=== PATIENT | female | born 1965 | race Caucasian/White ===

== ENCOUNTER → 2020-10-12 15:40 | Outpatient (CLI) | payer BC, SELFPAY ==
--- NOTE | ~2020-10-12 | MR_ITS ---
EXAMINATION: MR brain/brain stem wo/w con EXAM DATE: 10/12/2020 16:52 INDICATION: Headaches. Forgetting things. TECHNIQUE: Magnetic resonance imaging (MRI) of the brain/brain stem obtained without contrast. Sagit sharmin T1, axial diffusion, gradient echo (T2*), T1, T2, FLAIR sequences obtained. Patient was then inj ected with 18 cc intravenous Multihance contrast. Axial and coronal postcontrast T1 weighted sequence s obtained. There is no prior study for comparison. FINDINGS: There are no areas of restricted diffusion to suggest acute infarction. There is no acute hemorrhage seen on the T2*, a hemosiderin sensitive sequence. No intraparenchymal brain mass. The ve ntricles are normal in size. There are no extra-axial collections. Flow voids are seen in the cereb ral arteries on the T2-weighted sequences consistent with their expected patency. The orbits are unr emarkable. Soft tissue is unremarkable. There are no areas of abnormal enhancement on the postcont rast images. IMPRESSION: 1. Normal brain MRI examination. Reviewed, dictated and finalized at location B.
[2020-10-12 16:10] LABS: Estimated Glomerular Filt Rate 58
== END ==
PROVIDERS: Visit Provider Physician Assistant Medical
DX: R51.9 Headache, unspecified (principal)
CPT/HCPCS: 70553; A9577

== ENCOUNTER 2021-02-10 01:01 | Day surgery (SDC) | payer BC, SELFPAY ==
[2021-02-09 08:18] VITALS: BMI 32.4
[2021-02-10] VITALS (10 sets, daily range): BP systolic 113–137; BP diastolic 66–78; PULSE 60–84; RESP 10–20; TEMP 36.7–37.1; O2SAT 98–100
--- NOTE | ~2021-02-10 | XR_ITS ---
EXAMINATION: XR abdomen/kub 1V DATE: 02/10/2021 11:19 INDICATION: Kidney stone. TECHNIQUE: A supine view of the abdomen on 2 radiographs was obtained. COMPARISON: Abdomen radiograph 09/10/2014 FINDINGS: There are no dilated loops of bowel. There is a left internal ureteral stent in expected po sition. There is a 5 x 3 mm stone in left ureter at L2. Three 2-3 mm calcifications overlying left ki dney may be stones. IMPRESSION: 1. 5 x 3 mm stone in proximal left ureter with left internal ureteral stent in expected position. 2. Small calcifications overlying left kidney, which may be kidney stones. Reviewed, dictated and finalized at location A.
--- NOTE | 2021-02-10 06:53 | WPDHPUPDATE1 ---
History and Physical Update Update Date/Time: 02/10/21 06:53 History and Physical has been reviewed, including an updated exam of the patient. There are NO changes in the patient's condition. Risks, benefits, and alternatives have been discussed and questions answered. Patient agrees to proceed with procedure.
--- NOTE | 2021-02-10 10:02 | P.HP_ITS ---
History of Present Illness History of Present Illness Consent: Risks, benefits, and alternatives have been discussed and questions answered. Patient agrees to proceed with procedure. Chief complaint: left ureteral calcululs Narrative: Ayana Marinelli is a 55 year old female who's struggled x1 week with pain resulting from 7mm left proximal ureteral stone. Two days ago underwent left stent placement. She denies fever/chill, n/v. Review of Systems Cardiovascular: Cardiovascular: Denies chest pain, Denies lightheadedness, Denies palpitations and Denies dyspnea Respiratory: Respiratory: Denies dyspnea Gastrointestinal: Gastrointestinal: Denies diarrhea, Denies nausea and Denies vomiting Genitourinary: Genitourinary: Denies hematuria and Denies dysuria Endocrine: Endocrine: Denies palpitations PMF Family History Family History Other Family history of coronary artery disease Social History Social History Smoking status: Never smoker Alcohol intake: current Drinks per week: 2 Substance use: never Substance use type: does not use Living arrangements: with family Spiritual care concerns: No Meds Home Medications and Allergies Home Medications Medication Instructions Recorded Confirmed Type bupropion HCl [Wellbutrin SR] 150 mg PO BID 02/09/21 02/09/21 History hydrocodone-acetaminophen [[place]] 1 tablet PO Q6H PRN 02/09/21 02/09/21 History rizatriptan 10 mg PO ONCE PRN 02/09/21 02/09/21 History tamsulosin [Flomax] 0.4 mg PO DAILY 02/09/21 02/09/21 History zolpidem [Ambien] 5 mg PO HS PRN 02/09/21 02/09/21 History Allergies Allergy/AdvReac Type Severity Reaction Status Date / Time omeprazole Allergy Severe Chest Pain Verified 02/09/21 08:15 Penicillins Allergy Unknown Unknown Verified 02/09/21 08:15 Exam Const: General: no acute distress Resp: Effort & Inspection: normal respiratory effort GI: Inspection: non-distended GI Palp: No abdominal tenderness and No Guarding due to palpation present (GI) Auscultation: normal bowel sounds Assessment and Plan Assessment and plan (1) Left ureteral stone: Code(s): N20.1 - Calculus of ureter Status: Acute Assessment and Plan: * Left ESWL, possible cysto. left ureteral stent removal.
--- NOTE | 2021-02-10 10:02 | WPDHPUPDATE1 ---
History and Physical Update Update Date/Time: 02/10/21 10:02 History and Physical has been reviewed, including an updated exam of the patient. There are NO changes in the patient's condition. Risks, benefits, and alternatives have been discussed and questions answered. Patient agrees to proceed with procedure.
--- NOTE | 2021-02-10 11:37 | WPDANESEPPF ---
Anes - Initial Pre Proc Eval Procedure: Operation Date: 02/10/21 13:00 Proposed Procedures p Left Ureteral Extracorporeal Shock Wave Lithotripsy, - Philipp Valdez MD s Cystoscopy, Possible Left Stent Removal - Philipp Valdez MD Date/Time: 02/10/21 11:37 Surgeon: Philipp Valdez MD Pre Op Diagnosis: left ureteral calcululs Patient Data Age: 55 Gender: F Height: 1.69 m Weight: 92.53 kg Allergies Allergy/AdvReac Type Severity Reaction Status Date / Time omeprazole Allergy Severe Chest Pain Verified 02/10/21 11:24 Penicillins Allergy Unknown Unknown Verified 02/10/21 11:24 Home Medications Medication Instructions Recorded Confirmed Type bupropion HCl [Wellbutrin SR] 300 mg PO HS 02/09/21 02/10/21 History hydrocodone-acetaminophen [[place]ox] 1 tablet PO Q6H PRN 02/09/21 02/10/21 History rizatriptan 10 mg PO ONCE PRN 02/09/21 02/10/21 History tamsulosin [Flomax] 0.4 mg PO DAILY 02/09/21 02/10/21 History zolpidem [Ambien] 5 mg PO HS PRN 02/09/21 02/10/21 History famotidine 20 mg PO BID 02/10/21 02/10/21 History Patient hx anesthesia problems: none Family hx anesthesia problems: none Results Review: All pre-operative results and documents have been reviewed as part of the pre-operative evaluation. [facility] Past Medical History Medical History Anxiety Hx of migraines Raynaud's disease Family History Family History Other Family history of coronary artery disease Social History Social History Smoking status: Never smoker Alcohol intake: current Drinks per week: 2 Substance use: never Substance use type: does not use Living arrangements: with family Spiritual care concerns: No Anes - Eval Final PreProcedure Day of Procedure 02/10/21 11:37 Patient weight: obese Heart: regular rate and rhythm Lungs: clear to auscultation Airway: Mallampati scale class II Neurological: alert and oriented Last oral intake: >/= 8 hours ASA classification: III Emergent: no Anesthetic plan: proceed Anesthesia type and monitoring: general LMA and standard monitoring Results Review: All pre-operative results and documents have been reviewed as part of the pre-operative evaluation. Informed Consent: The patient's anesthetic plan and its attendant risks and benefits were discussed with the patient/family/POA. Questions were solicited and answers provided to the satisfaction of the patient/family/POA.
[2021-02-10] MEDS: LACTATED RINGERS 1,000 ML 30 ML IV CONT ×2 (12:06→14:56)
[2021-02-10] MEDS: SCOPOLAMINE 1.5 MG PATCH TRANSDERM (12:34)
--- NOTE | 2021-02-10 13:38 | P.OP_ITS ---
Procedure Note - Detailed Date of Procedure 02/10/21 Pre-op Diagnosis Left ureteral calcululs Post-op Diagnosis same Procedure Performed Cysto, left ureteral stent removal, left ESWL Surgeon Philipp Valdez MD Anesthesia general Description of Procedure The patient was brought to the operative suite where she was placed in the frog- legged position on the Dornier lithotripter table. Flexible cystoscopy was undertaken with a 16F flexible cystoscopy. Her urethra and bladder neck were endoscopically normal. The bladder mucosa was normal and there was a single, orthotopic ureteral orifice bilaterally. The indwelling stent is grasped and extracted with ease The patient was then repositioned in the supine position and the focal point of the lithotriptor was placed at a 5mm left mid-ureteral calculus. A total of 3000 shocks were delivered at a power setting of 5. There appeared to be good fragmentation of the stone. The patient tolerated the procedure well and was taken to the recovery room in good condition. Drains No Packing No Pathology none sent Complications No immediate complications Condition stable Disposition PACU
[2021-02-10] MEDS: ONDANSETRON INJ 4 MG/2 ML VIAL IV PUSH (14:02)
[2021-02-10] MEDS: fentaNYL CITRATE INJ (*CRX) 100 MCG/2 ML VIAL 25 MCG IV PUSH ×4 (14:06→14:32)
[2021-02-10] MEDS: oxyCODONE HCL (*CRX) 5 MG TAB IR PO (14:55)
== END 2021-02-10 16:40 | disposition home or self-care (01) ==
PROVIDERS: PCP Physician Assistant Medical; Visit Provider Urology
PROC: (CPT 50590; principal; 2021-02-10 13:00)
PROC: (CPT 52352; 2021-02-10 13:00)
DX: N20.1 Calculus of ureter (principal); F41.9 Anxiety disorder, unspecified; I73.00 Raynaud's syndrome without gangrene; E66.9 Obesity, unspecified; Z68.32 Body mass index [BMI] 32.0-32.9, adult
CPT/HCPCS: 50590; 52310; 74018; A9270; J1100; J1885; J2250; J2405; J2704; J3010; J7030; J7120

== ENCOUNTER 2021-11-21 08:43 | Outpatient (CLI) | payer BC, SELFPAY ==
[2021-11-21 09:59] LABS: INR 0.9; Prothrombin Time 12.2 Seconds (11.1-14.7)
[2021-11-21 10:00] LABS: Partial Thromboplastin Time 28.6 SECONDS (22.3-36.8)
== END 2021-11-21 08:44 | disposition home or self-care (01) ==
LOC: ANHSURGERY 08:47
PROVIDERS: PCP Physician Assistant Medical; Visit Provider Urology
DX: N20.1 Calculus of ureter (principal); Z01.818 Encounter for other preprocedural examination
CPT/HCPCS: 36415; 85610; 85730; 87086

== ENCOUNTER 2021-11-24 02:37 | Day surgery (SDC) | payer BC, SELFPAY ==
[2021-11-14 15:22] VITALS: BMI 28.6
--- NOTE | 2021-11-14 15:28 | PC.NURSE ---
Report to the Outpatient Waiting Room, entrance under the green pavilion located off [facility], at time 7:30 on date 11/24/21. OR Time: 9:30. - You and your visitor will be asked a series of questions to screen for COVID 19 for your protection. - Only one visitor is allowed at this time. - The patient visitor is requested to leave or wait in car when not with patient. - A mask is required within the hospital. Patients may have clear liquids (water, carbonated beverages, clear teas, apple juice) until 3 hours prior to surgery (6:30) with a maximum of 20 ounces. - No food from midnight until time of surgery Take the following medications with a SIP of water the morning of surgery: NONE Medications to discontinue per physician: N/A Date to take last dose: N/A Please no make-up, nail ugandan, hairspray, perfume, deodorant, or body powder the day of surgery. No jewelry (including any body piercings) or valuables the day of surgery, leave them at home. Please take a shower or bath the night before, or the morning of, surgery with an antibacterial soap. Wear comfortable, loose fitting clothing. - Jewelry must be removed prior to entering the operating room. Rings and piercings that are not removed may be cut off. - The hospital will not accept responsibility for valuables. - Please leave all valuables, including medications, at home the day of surgery. If you are going home after surgery, a licensed over the road driver must drive you home. - NO public transportation without another adult. - We recommend that an adult stay with you for 24 hours following discharge. - We also recommend that you do not drive, make important decision, drink alcoholic beverages, or take any drugs that were not prescribed by your health care provider for at least 24 hours after your discharge time. Follow any additional instructions given to you from your surgeon. If you or anyone in your household have experienced Covid symptoms in the past week, please notify your surgeon or the nurse liaison at the phone number below for possible testing. Telephone instructions given to PT - RACHEL MILLIGAN and asked if any additional questions and then verbalized understanding. Patient advised to call surgeon office or pre surgery nurse liaison [phone] if any additional questions.
--- NOTE | 2021-11-22 11:27 | PM.HPGS ---
History of Present Illness History of Present Illness Consent: Risks, benefits, and alternatives have been discussed and questions answered. Patient agrees to proceed with procedure. Chief complaint: Lt Kidney Stone Narrative: Ayana Marinelli is a 56 year old female who is known to have recurrent kidney stones in the past and required ESWL on prior occasions. On recent 6 month follow-up KUB imaging demonstrated for residual stones in her left kidney measuring between 4 mm and 6 mm. After discussion of therapeutic options she has elected to proceed with left ESWL. She is aware the risk of this procedure including, but not limited to, adverse cardiopulmonary events, persistent stone fragments that require additional procedures, hematuria and perinephric hematoma. Review of Systems Cardiovascular: Cardiovascular: Denies chest pain, Denies lightheadedness, Denies palpitations and Denies dyspnea Respiratory: Respiratory: Denies dyspnea Gastrointestinal: Gastrointestinal: Denies diarrhea, Denies nausea and Denies vomiting Genitourinary: Genitourinary: Denies hematuria and Denies dysuria Endocrine: Endocrine: Denies palpitations [facility] Past Medical History Medical History Anxiety Hx of migraines Raynaud's disease Family History Family History Other Family history of coronary artery disease Social History Social History Smoking status: Never smoker Alcohol intake: current Drinks per week: 1 Substance use: never Substance use type: does not use Spiritual care concerns: No Meds Home Medications and Allergies Home Medications Medication Instructions Recorded Confirmed Type bupropion HCl 150 mg tablet,12 hr 300 mg PO HS 02/09/21 11/14/21 History sustained-release (Wellbutrin SR) rizatriptan 10 mg tablet 10 mg PO ONCE PRN Migraine Headache 02/09/21 11/14/21 History zolpidem 5 mg tablet (Ambien) 5 mg PO HS PRN Insomnia 02/09/21 11/14/21 History famotidine 20 mg tablet 20 mg PO BID 02/10/21 11/14/21 History Allergies Allergy/AdvReac Type Severity Reaction Status Date / Time omeprazole Allergy Severe Chest Pain Verified 11/14/21 15:19 Penicillins Allergy Unknown Unknown Verified 11/14/21 15:19 Exam Const: General: no acute distress Resp: Effort & Inspection: normal respiratory effort GI: Inspection: non-distended GI Palp: No abdominal tenderness and No Guarding due to palpation present (GI) Auscultation: normal bowel sounds Assessment and Plan Assessment and plan (1) Left renal stone: Code(s): N20.0 - Calculus of kidney Status: Acute Assessment and Plan: Left ESWL
[2021-11-24] VITALS (7 sets, daily range): BP systolic 112–122; BP diastolic 66–93; PULSE 64–87; RESP 9–18; TEMP 36.1–36.7; O2SAT 96–100
--- NOTE | ~2021-11-24 | XR_ITS ---
EXAMINATION: XR abdomen/kub 1V INDICATION: Urolithiasis TECHNIQUE: Supine views of the abdomen were obtained on 2 radiographs. COMPARISON: 02/10/2021 FINDINGS: A 6 mm stone projects in the expected location of the proximal left ureter between the left L1 and L2 transverse processes. There is a 3 mm stone in the upper pole of left kidney. A 2 mm stone is present in the left kidney lower pole. The bowel gas pattern is normal. IMPRESSION: 1. 6 mm stone projecting in the expected location of the proximal left ureter. Reviewed, dictated and finalized at location L.
--- NOTE | 2021-11-24 06:53 | WPDHPUPDATE1 ---
History and Physical Update Update Date/Time: 11/24/21 06:53 History and Physical has been reviewed, including an updated exam of the patient. There are NO changes in the patient's condition. Risks, benefits, and alternatives have been discussed and questions answered. Patient agrees to proceed with procedure.
[2021-11-24] MEDS: LACTATED RINGERS 1,000 ML 30 ML IV CONT (08:00)
--- NOTE | 2021-11-24 08:09 | WPDANESEPPF ---
Anes - Initial Pre Proc Eval Procedure: Operation Date: 11/24/21 09:30 Proposed Procedures p Left Extracorporeal Shock Wave Lithotripsy - Philipp Valdez MD Date/Time: 11/24/21 08:09 Surgeon: Philipp Valdez MD Pre Op Diagnosis: Lt Kidney Stone Patient Data Age: 56 Gender: F Height: 1.7 m Weight: 83 kg Allergies Allergy/AdvReac Type Severity Reaction Status Date / Time omeprazole Allergy Severe Chest Pain Verified 11/14/21 15:19 Penicillins Allergy Unknown Unknown Verified 11/14/21 15:19 Home Medications Medication Instructions Recorded Confirmed Type bupropion HCl 150 mg tablet,12 hr 300 mg PO HS 02/09/21 11/14/21 History sustained-release (Wellbutrin SR) rizatriptan 10 mg tablet 10 mg PO ONCE PRN Migraine Headache 02/09/21 11/14/21 History zolpidem 5 mg tablet (Ambien) 5 mg PO HS PRN Insomnia 02/09/21 11/14/21 History famotidine 20 mg tablet 20 mg PO BID 02/10/21 11/14/21 History Patient hx anesthesia problems: none Family hx anesthesia problems: none Results Review: All pre-operative results and documents have been reviewed as part of the pre-operative evaluation. [facility] Past Medical History Medical History Anxiety Hx of migraines Raynaud's disease Surgical History Surgical History (Updated 11/24/21 @ 08:09 by Adan Patel MD) H/O lithotripsy Hx of cystoscopy Family History Family History Other Family history of coronary artery disease Social History Social History Smoking status: Never smoker Alcohol intake: current Drinks per week: 1 Substance use: never Substance use type: does not use Living arrangements: alone Spiritual care concerns: No Anes - Eval Final PreProcedure Day of Procedure 11/24/21 08:09 Patient weight: overweight Heart: regular rate and rhythm Lungs: clear to auscultation Airway: Mallampati scale class II Neurological: alert and oriented Last oral intake: >/= 8 hours ASA classification: II Emergent: no Anesthetic plan: proceed Anesthesia type and monitoring: general LMA and standard monitoring Results Review: All pre-operative results and documents have been reviewed as part of the pre-operative evaluation. Informed Consent: The patient's anesthetic plan and its attendant risks and benefits were discussed with the patient/family/POA. Questions were solicited and answers provided to the satisfaction of the patient/family/POA.
[2021-11-24] MEDS: KETOROLAC 30 MG/ML VIAL (*BKC) IV PUSH (09:09)
--- NOTE | 2021-11-24 09:29 | W.PM.PROC2 ---
Procedure Note - Detailed Date of Procedure 11/24/21 Pre-op Diagnosis Lt Kidney Stone Post-op Diagnosis Same Procedure Performed Left ESWL Surgeon Philipp Valdez MD Description of Procedure The patient was brought to the operative suite where she was placed in the supine position on the Dornier lithotripsy table. On the morning of this procedure KUB indicated that she had passed a small stone in the left upper pole and that the 6 mm stone that had been in her left lower pole was either in the renal pelvis or proximal ureter. The focal point of the lithotripter was placed at a this 6 mm left renal calculus. A total of 1500 shocks were delivered at a power setting of 4 - stone appeared to break up very early in the course of the procedure. There appeared to be excellent fragmentation of the stone. The patient tolerated the procedure well and was taken to the recovery room in good condition. Drains No Packing No Pathology None sent Complications No immediate complications Condition Stable Disposition PACU
[2021-11-24] MEDS: fentaNYL CITRATE INJ (*CRX) 100 MCG/2 ML VIAL 25 MCG IV PUSH ×3 (09:40→09:50)
[2021-11-24] MEDS: oxyCODONE HCL (*CRX) 5 MG TAB IR PO (10:30)
[2021-11-24] MEDS: ONDANSETRON INJ 4 MG/2 ML VIAL IV PUSH (10:47)
--- NOTE | 2021-11-24 11:10 | SUR.PHASEII ---
RN called back to the OR and Dr. Valdez will send a prescription to the pharmacy for antiemetic when finished with his next case.
== END 2021-11-24 11:12 | disposition home or self-care (01) ==
PROVIDERS: PCP Physician Assistant Medical; Visit Provider Urology
PROC: (CPT 50590; principal; 2021-11-24 09:30)
DX: N20.0 Calculus of kidney (principal); F41.9 Anxiety disorder, unspecified; I73.00 Raynaud's syndrome without gangrene
CPT/HCPCS: 50590; 74018; A9270; J0690; J1100; J1885; J2250; J2405; J2704; J3010; J7120

== ENCOUNTER → 2022-02-20 14:51 | Outpatient (CLI) | payer BC, SELFPAY ==
--- NOTE | ~2022-02-20 | CT_ITS ---
EXAMINATION: CT chest high resolution wo de DATE: 02/20/2022 15:11 INDICATION: Follow-up pulmonary nodule TECHNIQUE: Computed tomography (CT) of the chest was performed without intravenous contrast. The dose -length product was 333.57 mGy-cm. Automated exposure control and iterative reconstruction technique were employed. COMPARISON: CT dated 09/06/2017 FINDINGS: There are 2 contiguous nodules in the left lower lobe, largest measuring 8 mm with developi ng central calcification, consistent with chronic granulomatous disease. There is a calcified left hi lar lymph node, consistent with granulomatous disease. No thoracic lymphadenopathy. Heart size normal . No significant pleural or pericardial effusion. There are nonobstructing bilateral renal stones. Th ere are gallstones. There is a small calcified granuloma in the left lower lobe, image 41. No endobro nchial lesions. No pneumothorax. No focal consolidation. IMPRESSION: 1. Slight enlargement of benign-appearing calcified left lower lobe nodule measuring 8 mm, consistent with chronic granulomatous disease. 2: Nonobstructing bilateral nephrolithiasis. 3: Cholelithiasis. Reviewed, dictated and finalized at location B. IMPRESSION: 1. Slight enlargement of benign-appearing calcified left lower lobe nodule lisset uring 8 mm, consistent with chronic granulomatous disease. 2: Nonobstructing bilateral nephrolithiasis. 3: Cholelithiasis.
--- NOTE | ~2022-02-20 | MM_ITS ---
EXAMINATION: MM screening jose alfredo BI w bill HISTORY: Screening mammogram, family history of breast cancer in her sister. TECHNIQUE: Craniocaudal and mediolateral oblique 3-D tomosynthesis images were obtained and synthetic 2-D images were generated. CAD analysis was submitted and interpreted. COMPARISON: 05/02/2019, 09/13/2017, 09/06/2017 BREAST PARENCHYMAL COMPOSITION: There are scattered areas of fibroglandular density. FINDINGS: Scattered benign-appearing calcifications are present. No suspicious mass, calcification, o r architectural distortion are identified in either breast to suggest malignancy. There has been no s uspicious interval change. IMPRESSION: 1. No mammographic evidence of malignancy. 2. Recommend routine screening mammography in one year. BI-RADS Category 2: Benign finding(s). Reviewed, dictated and finalized at location A.
== END ==
PROVIDERS: PCP Physician Assistant Medical; Visit Provider Physician Assistant Medical
DX: Z12.31 Encounter for screening mammogram for malignant neoplasm of breast (principal); R91.1 Solitary pulmonary nodule; K80.20 Calculus of gallbladder without cholecystitis without obstruction; N20.0 Calculus of kidney
CPT/HCPCS: 71250; 77063; 77067

== ENCOUNTER → 2022-06-22 12:47 | Outpatient (CLI) | payer BC, SELFPAY ==
--- NOTE | ~2022-06-22 | CT_ITS ---
EXAMINATION: CT sinus wo con DATE: 06/22/2022 13:00 INDICATION: Sinusitis. Migraines. TECHNIQUE: Computed tomography (CT) of the paranasal sinuses was performed without intravenous contra st. The dose-length product was 287.09 mGy-cm. Automated exposure control and iterative reconstructio n technique were employed. COMPARISON: None FINDINGS: There is no significant mucosal thickening, air-fluid levels or mucoperiosteal reaction. Os tiomeatal units are patent. Rightward nasal septal deviation. Mastoids are pneumatized. IMPRESSION: 1. No significant sinus disease. Reviewed, dictated and finalized at location B. GER QUALITY
== END ==
PROVIDERS: PCP Physician Assistant Medical; Visit Provider Physician Assistant Medical
DX: J32.9 Chronic sinusitis, unspecified (principal); G43.909 Migraine, unspecified, not intractable, without status migrainosus
CPT/HCPCS: 70486

== ENCOUNTER 2022-07-14 10:34 | Outpatient (CLI) | payer BC, SELFPAY ==
[2022-07-14 11:21] LABS: INR 0.9; Prothrombin Time 11.9 Seconds (11.1-14.7)
[2022-07-14 11:23] LABS: Partial Thromboplastin Time 26.4 SECONDS (22.3-36.8)
== END 2022-07-14 10:35 | disposition home or self-care (01) ==
LOC: ANHLAB 10:36
PROVIDERS: PCP Physician Assistant Medical; Visit Provider Urology
DX: N20.0 Calculus of kidney (principal); Z01.818 Encounter for other preprocedural examination
CPT/HCPCS: 36415; 85610; 85730; 87086

== ENCOUNTER 2022-07-20 02:29 | Day surgery (SDC) | payer BC, SELFPAY ==
[2022-07-13 12:47] VITALS: BMI 29.9
--- NOTE | 2022-07-13 12:51 | PC.NURSE ---
Addendum entered by Kristal Ward RN 07/13/22 12:58: PT TO TAKE AM DOSE OF CEFDINIR MORNING OF SURGERY Original Note: Report to the Outpatient Waiting Room, entrance under the green pavilion located off [facility], at time 10:30 on date 07/20/22. Planned Procedure Time: 12:30. Time changes happen often and if your time is changed the preop area will call you the afternoon before. - You and your visitor will be asked to self-screen and do not enter if you have any COVID symptoms. - Only one visitor is requested with a max of two and NO children visitors are allowed at this time. - The patient visitor may be requested to leave or wait in car when not with patient due to distancing restrictions. - A mask is optional within the hospital at this time. Patients may have clear liquids (water, carbonated beverages, clear teas, apple juice) until 3 hours prior to surgery (9:30) with a maximum of 20 ounces. - No food from midnight until time of surgery Take the following medications with a SIP of water the morning of surgery: N/A DO NOT STOP ANY OF YOUR OTHER PRESCRIPTION MEDICATIONS PRIOR TO SURGERY EXCEPT THE FOLLOWING Medications to discontinue per physician: VITAMINS/SUPPLEMENTS Date to take last dose: 07/16/22 Please no make-up, nail [place], hairspray, perfume, deodorant, or body powder the day of surgery. No jewelry (including any body piercings) or valuables the day of surgery, leave them at home. Please take a shower or bath the night before, or the morning of, surgery with an antibacterial soap. Wear comfortable, loose fitting clothing. - Jewelry must be removed prior to entering the operating room. Rings and piercings that are not removed may be cut off. - The hospital will not accept responsibility for valuables. - Please leave all valuables, including medications, at home the day of surgery. If you are going home after surgery, a licensed school boat driver must drive you home. - NO public transportation without another adult if you receive anesthesia. - We recommend that an adult stay with you for 24 hours following discharge. - We also recommend that you do not drive, make important decision, drink alcoholic beverages, or take any drugs that were not prescribed by your health care provider for at least 24 hours after your discharge time. Follow any additional instructions given to you from your surgeon. If you or anyone in your household have experienced Covid symptoms in the past week, please notify your surgeon or the nurse liaison at the phone number below for possible testing. Telephone instructions given to INDIGO MILLIGAN and asked if any additional questions and then verbalized understanding. Patient advised to call surgeon office or pre surgery nurse liaison [phone] if any additional questions.
--- NOTE | 2022-07-19 07:02 | PM.HPGS ---
History of Present Illness History of Present Illness Consent: Risks, benefits, and alternatives have been discussed and questions answered. Patient agrees to proceed with procedure. Chief complaint: Lt Kidney Stone Narrative: Ayana Marinelli is a 56 year old female Well known to our service with a long history of recurrent urolithiasis. She recently presented for routine follow-up where imaging demonstrated 4 stones in left kidney up to 5 mm. After consideration she has elected for left ESWL. She is aware the risk including, but not limited to, adverse cardiopulmonary events, hematuria and perinephric hematoma. Review of Systems Cardiovascular: Cardiovascular: Denies chest pain, Denies lightheadedness, Denies palpitations and Denies dyspnea Respiratory: Respiratory: Denies dyspnea Gastrointestinal: Gastrointestinal: Denies diarrhea, Denies nausea and Denies vomiting Genitourinary: Genitourinary: Denies hematuria and Denies dysuria Endocrine: Endocrine: Denies palpitations PMFSH Past Medical History Medical History ) Acute non-recurrent maxillary sinusitis Anxiety Anxiety GERD (gastroesophageal reflux disease) Hx of migraines Insomnia Primary insomnia Pulmonary nodule Raynaud's disease Surgical History Surgical History ) H/O lithotripsy 2014,2020,2021 History of tonsillectomy 03/2007 Hx of appendectomy 1979 Hx of cystoscopy Hx of tubal ligation 09/2001 Family History Family History ) Other Family history of coronary artery disease Social History Social History ) Smoking status: Never smoker Alcohol intake: current Drinks per week: 2 Substance use: never Substance use type: does not use Lack of Transportation: No Lack of Food: Never True Current Housing: I Have Housing Concerned About Future Housing: No Difficulty Paying Gas/Electric Bills: No Difficulty Paying for Meds: No Currently Unemployed: No Education: High School Diploma/GED Difficulty w/ Childcare or Family Care: No Living arrangements: with family Additional living arrangements comments: DAUGHTER Occupation/Education: occupation Gender identity (if verbalized by the patient): Female Sexual Orientation (if Verbalized by the Patient): Straight or Heterosexual Spiritual care concerns: No Meds Home Medications and Allergies Home Medications Medication Instructions Recorded Confirmed Type ergocalciferol (vitamin D2) 1,250 1,250 mcg PO WEEKLY #12 caps 12/11/21 07/13/22 Rx mcg (50,000 unit) capsule bupropion HCl 150 mg tablet,12 hr See Rx Instructions .Route 05/21/22 07/13/22 Rx sustained-release .COMPLEX #180 tabs cefdinir 300 mg capsule 300 mg PO Q12H #20 caps 07/11/22 07/13/22 Rx famotidine 20 mg tablet 20 mg PO BID #180 tabs 07/11/22 07/13/22 Rx sucralfate 1 gram tablet 1 g PO QID #120 tabs 07/11/22 07/13/22 Rx topiramate 25 mg tablet (Topamax) 25 mg PO DAILY 07/13/22 07/13/22 History zolpidem 5 mg tablet (Ambien) 5 mg PO HS PRN Insomnia #3 tabs 07/16/22 Rx Allergies Allergy/AdvReac Type Severity Reaction Status Date / Time omeprazole Allergy Severe Chest Pain Verified 07/17/22 09:32 Penicillins Allergy Unknown Unknown Verified 07/17/22 09:32 Exam Const: General: no acute distress Resp: Effort & Inspection: normal respiratory effort GI: Inspection: non-distended GI Palp: No abdominal tenderness and No Guarding due to palpation present (GI) Auscultation: normal bowel sounds Assessment and Plan Assessment and plan (1) Left renal stone: Code(s): N20.0 - Calculus of kidney Status: Acute Assessment and Plan: Left ESWL
[2022-07-20] VITALS (12 sets, daily range): BP systolic 100–129; BP diastolic 67–87; PULSE 65–83; RESP 11–16; TEMP 36.3–36.7; O2SAT 94–100
--- NOTE | ~2022-07-20 | XR_ITS ---
EXAMINATION: XR abdomen/kub 1V INDICATION: Nephrolithiasis TECHNIQUE: Supine views of the abdomen were obtained on 2 radiographs. COMPARISON: 12/11/2021 FINDINGS: A 3 mm stone projects in the upper pole of the left kidney. There is a 3 mm stone of the le ft mid kidney. A 2 mm stone is noted in the left kidney lower pole. No stones are identified in the r ight kidney, ureters, or the bladder. The bowel gas pattern is normal. IMPRESSION: 1. Left nephrolithiasis. Reviewed, dictated and finalized at location B. IMPRESSION: 1. Left nephrolithiasis.
--- NOTE | 2022-07-20 06:33 | WPDHPUPDATE1 ---
History and Physical Update Update Date/Time: 07/20/22 06:33 History and Physical has been reviewed, including an updated exam of the patient. There are NO changes in the patient's condition. Risks, benefits, and alternatives have been discussed and questions answered. Patient agrees to proceed with procedure.
[2022-07-20] MEDS: LACTATED RINGERS 1,000 ML 30 ML IV CONT ×2 (10:45→12:36)
[2022-07-20] MEDS: SCOPOLAMINE 1.5 MG PATCH TRANSDERM ×2 (11:10→15:04)
[2022-07-20] MEDS: fentaNYL CITRATE INJ (*CRX) 100 MCG/2 ML VIAL 50 MCG IV PUSH (11:10)
--- NOTE | 2022-07-20 11:25 | WPDANESEPPF ---
Anes - Initial Pre Proc Eval Procedure: Operation Date: 07/20/22 11:30 Proposed Procedures p Left Extracorporeal Shock Wave Lithotripsy - Philipp Valdez MD Date/Time: 07/20/22 11:25 Surgeon: Philipp Valdez MD Pre Op Diagnosis: Lt Kidney Stone Patient Data Age: 56 Gender: F Height: 1.7 m Weight: 86.65 kg Allergies Allergy/AdvReac Type Severity Reaction Status Date / Time omeprazole Allergy Severe Chest Pain Verified 07/17/22 09:32 Penicillins Allergy Unknown Unknown Verified 07/17/22 09:32 Home Medications Medication Instructions Recorded Confirmed Type ergocalciferol (vitamin D2) 1,250 1,250 mcg PO WEEKLY #12 caps 12/11/21 07/13/22 Rx mcg (50,000 unit) capsule bupropion HCl 150 mg tablet,12 hr See Rx Instructions .Route 05/21/22 07/13/22 Rx sustained-release .COMPLEX #180 tabs cefdinir 300 mg capsule 300 mg PO Q12H #20 caps 07/11/22 07/13/22 Rx famotidine 20 mg tablet 20 mg PO BID #180 tabs 07/11/22 07/13/22 Rx sucralfate 1 gram tablet 1 g PO QID #120 tabs 07/11/22 07/13/22 Rx topiramate 25 mg tablet (Topamax) 25 mg PO DAILY 07/13/22 07/13/22 History zolpidem 5 mg tablet (Ambien) 5 mg PO HS PRN Insomnia #3 tabs 07/16/22 Rx Patient hx anesthesia problems: other (headache) Family hx anesthesia problems: none Results Review: All pre-operative results and documents have been reviewed as part of the pre-operative evaluation. [facility] Past Medical History Medical History Acute non-recurrent maxillary sinusitis Anxiety Anxiety GERD (gastroesophageal reflux disease) Hx of migraines Insomnia Primary insomnia Pulmonary nodule Raynaud's disease Surgical History Surgical History H/O lithotripsy 2014,2020,2021 History of tonsillectomy 03/2007 Hx of appendectomy 1979 Hx of cystoscopy Hx of tubal ligation 09/2001 Family History Family History Other Family history of coronary artery disease Social History Social History Smoking status: Never smoker Alcohol intake: current Drinks per week: 2 Substance use: never Substance use type: does not use Lack of Transportation: No Lack of Food: Never True Current Housing: I Have Housing Concerned About Future Housing: No Difficulty Paying Gas/Electric Bills: No Difficulty Paying for Meds: No Currently Unemployed: No Education: High School Diploma/GED Difficulty w/ Childcare or Family Care: No Living arrangements: with family Additional living arrangements comments: DAUGHTER Occupation/Education: occupation Gender identity (if verbalized by the patient): Female Sexual Orientation (if Verbalized by the Patient): Straight or Heterosexual Spiritual care concerns: No Anes - Eval Final PreProcedure Day of Procedure 07/20/22 11:25 Patient weight: overweight Heart: regular rate and rhythm Lungs: clear to auscultation Airway: Mallampati scale class II Neurological: alert and oriented Last oral intake: >/= 8 hours ASA classification: III Emergent: no Anesthetic plan: proceed Anesthesia type and monitoring: general LMA and standard monitoring Results Review: All pre-operative results and documents have been reviewed as part of the pre-operative evaluation. Informed Consent: The patient's anesthetic plan and its attendant risks and benefits were discussed with the patient/family/POA. Questions were solicited and answers provided to the satisfaction of the patient/family/POA.
[2022-07-20] MEDS: ceFAZolin 2 GM/D5W 50 ML 2 GM/50 ML BAG IVPB (11:53)
--- NOTE | 2022-07-20 12:08 | W.PM.PROC2 ---
Procedure Note - Detailed Date of Procedure 07/20/22 Pre-op Diagnosis Lt Kidney Stone Post-op Diagnosis Same Procedure Performed Left ESWL Surgeon Philipp Valdez MD Anesthesia General Description of Procedure The patient was brought to the operative suite where she was placed in the supine position on the Dornier lithotripsy table. Patient has two decent-sized stones (each 5-6mm) in her left kidney and some smaller, clinically insignifiant chips. At a power setting of 4 we delivered 1250 shocks to each of the larger stones in left kidney for a total of 2500 shocks . There appeared to be good fragmentation of the stone. The patient tolerated the procedure well and was taken to the recovery room in good condition. Drains No Packing No Pathology None sent Complications No immediate complications Condition Stable Disposition PACU
[2022-07-20] MEDS: fentaNYL CITRATE INJ (*CRX) 100 MCG/2 ML VIAL 25 MCG IV PUSH ×5 (12:44→13:45)
[2022-07-20] MEDS: ONDANSETRON INJ 4 MG/2 ML VIAL IV PUSH (12:58)
[2022-07-20] MEDS: oxyCODONE HCL (*CRX) 5 MG TAB IR PO (14:09)
[2022-07-20] MEDS: KETOROLAC 15 MG/ML VIAL (*BKC) IV PUSH (14:30)
== END 2022-07-20 15:15 | disposition home or self-care (01) ==
PROVIDERS: PCP Physician Assistant Medical; Visit Provider Urology
PROC: (CPT 50590; principal; 2022-07-20 11:30)
DX: N20.0 Calculus of kidney (principal); K21.9 Gastro-esophageal reflux disease without esophagitis; F41.9 Anxiety disorder, unspecified; G47.00 Insomnia, unspecified
CPT/HCPCS: 50590; 74018; A9270; J0690; J1100; J1885; J2250; J2405; J2704; J3010; J7120

== ENCOUNTER 2022-11-02 15:04 | Outpatient (CLI) | payer BC, SELFPAY ==
--- NOTE | ~2022-11-02 | US_ITS ---
EXAMINATION: US thyroid DATE: 11/02/2022 15:41 INDICATION: Nontoxic goiter, unspecified. TECHNIQUE: Multiple ultrasound images of the thyroid were obtained. COMPARISON: None. FINDINGS: The right thyroid lobe measures 3.8 x 1.4 x 2.0 cm. The left thyroid lobe measures 3.6 x 1.5 x 1.6 c m. In the left thyroid lobe, there is a 7 mm solid, hypoechoic, wider than tall nodule with smooth m argin without echogenic foci (TI-RADS TR4). In the left thyroid lobe, there is a 6 mm solid, very hyp oechoic, wider than tall nodule with smooth margin without echogenic foci (TR4). In the right thyroid lobe, there is a 7 mm solid, hypoechoic, wider than tall nodule with ill-defined margin without echo genic foci (TR4). In the right thyroid lobe, there is a 5 mm solid, hypoechoic, wider than tall nodul e with smooth margin without echogenic foci (TR4). IMPRESSION: 1. Small thyroid nodules, likely not clinically significant. No follow-up is needed. Reviewed, dictated and finalized at location A. IMPRESSION: 1. Small thyroid nodules, likely not clinically significant. No follow-up is ne eded.
== END 2022-11-02 15:05 | disposition home or self-care (01) ==
PROVIDERS: PCP Physician Assistant Medical; Visit Provider Nurse Practitioner Family
DX: E04.2 Nontoxic multinodular goiter (principal)
CPT/HCPCS: 76536

== ENCOUNTER → 2023-02-21 09:13 | Outpatient (CLI) | payer BC, SELFPAY ==
--- NOTE | ~2023-02-21 | CT_ITS ---
EXAMINATION: CT brain wo con DATE: 02/21/2023 09:27 INDICATION: Headache. TECHNIQUE: Computed tomography (CT) of the head was performed without intravenous contrast. The mA wa s adjusted according to patient size. Iterative reconstruction technique was employed. The dose-lengt h product was 599.57 mGy-cm. COMPARISON: None FINDINGS: There is no intracranial hemorrhage, acute infarction, or abnormal intracranial mass lesion . The ventricles are normal in size. There is mild mucosal thickening in the paranasal sinuses. The o rbits are normal. The mastoid air cells are normal. IMPRESSION: 1. Normal brain. Reviewed, dictated and finalized at location E. IMPRESSION: 1. Normal brain.
== END ==
PROVIDERS: PCP Nurse Practitioner Family; Visit Provider Nurse Practitioner Family
DX: R51.9 Headache, unspecified (principal)
CPT/HCPCS: 70450

== ENCOUNTER 2023-08-30 13:03 | Outpatient (CLI) | payer BC, SELFPAY ==
--- NOTE | ~2023-08-30 | MM_ITS ---
EXAMINATION: MM screening jose alfredo BI w bill HISTORY: Screening mammogram TECHNIQUE: Craniocaudal and mediolateral oblique 3-D tomosynthesis images were obtained and synthetic 2-D images were generated. CAD analysis was submitted and interpreted. COMPARISON: 02/20/2022, 05/02/2021 bilateral screening mammogram examinations BREAST PARENCHYMAL COMPOSITION: There are scattered areas of fibroglandular density.. FINDINGS: Scattered bilateral benign calcifications are again noted. Stable mild fibroglandular asymm etry. There is no evidence of suspicious mass, calcification, or architectural distortion to suggest malignancy in either breast. There has been no suspicious interval change. IMPRESSION: 1. No mammographic evidence of malignancy. 2. Recommend routine screening mammography in one year. BI-RADS Category 2: Benign finding(s). Reviewed, dictated and finalized at location A.
== END 2023-08-30 13:04 ==
LOC: MICIMG 13:03
PROVIDERS: PCP Nurse Practitioner Family; Visit Provider Nurse Practitioner Family
DX: Z12.31 Encounter for screening mammogram for malignant neoplasm of breast (principal)
CPT/HCPCS: 77063; 77067

== ENCOUNTER 2024-04-03 08:07 | Outpatient (CLI) | payer BC, SELFPAY ==
--- NOTE | ~2024-04-03 | XR_ITS ---
XR abdomen/kub 1V Ordering provider: Philipp Valdez MD History: . Calculus of kidney . Comparison: None. FINDINGS: BOWEL: Fecal material seen in the right and left side of the colon. Nonobstructive bowel gas pattern. ORGANOMEGALY: None. SIGNIFICANT PATHOLOGIC CALCIFICATIONS: Stones seen in both kidneys. OTHER: No free air is seen under the diaphragm. IMPRESSION: NO ACUTE ABDOMINAL FINDINGS. Bilateral kidney stones. Constipation. Reviewed, dictated and finalized at location A. [employer]
== END 2024-04-03 08:08 | disposition home or self-care (01) ==
PROVIDERS: PCP Nurse Practitioner Family; Visit Provider Urology
DX: N20.0 Calculus of kidney (principal); K59.00 Constipation, unspecified
CPT/HCPCS: 74018

== ENCOUNTER 2024-04-13 11:16 | Outpatient (CLI) | payer BC, SELFPAY ==
[2024-04-13 12:03] LABS: INR 0.9; Prothrombin Time 12.7 Seconds (11.1-14.7)
[2024-04-13 12:04] LABS: Partial Thromboplastin Time 25.7 Seconds (22.3-36.8)
== END 2024-04-13 11:17 | disposition home or self-care (01) ==
PROVIDERS: PCP Nurse Practitioner Family; Visit Provider Urology
DX: Z01.812 Encounter for preprocedural laboratory examination (principal)
CPT/HCPCS: 36415; 85610; 85730

== ENCOUNTER 2024-04-14 01:27 | Day surgery (SDC) | payer BC, SELFPAY ==
[2024-04-08 12:10] VITALS: BMI 27.6
--- NOTE | 2024-04-08 12:15 | PC.NURSE ---
Addendum entered by Ric Beaver RN 04/10/24 12:57: Surgery date changed to 04-14-2024, arrive at 1130 for surgery at 1330. Original Note: Report to the Outpatient Waiting Room, entrance under the green pavilion located off [facility], at time _0600_ on date _[id number]_. Planned Procedure Time: _0730_.? Time changes happen often and if your time is changed the preop area will call you the afternoon before. - You and your visitor will be asked to self-screen and do not enter if you have any COVID symptoms. Please call surgeon if you need to reschedule. - A mask is optional within the hospital at this time. Patients may have clear liquids (water, carbonated beverages, clear teas, apple juice) until 3 hours prior to surgery with a maximum of 20 ounces. - No food from midnight until time of surgery and no smoking. This includes no chewing gum, candy or mints. Take only the following medications with a SIP of water on the morning of surgery: ____None DO NOT STOP ANY OF YOUR OTHER PRESCRIPTION MEDICATIONS PRIOR TO SURGERY EXCEPT THE FOLLOWING Medications to discontinue per physician ____None Date to take last dose Please no make-up, nail [place] islander, hairspray, perfume, deodorant, or body powder the day of surgery.? No jewelry (including any body piercings) or valuables the day of surgery, leave them at home.? Please take a shower or bath the night before, or the morning of, surgery with an antibacterial soap.? Wear comfortable, loose fitting clothing. - Jewelry must be removed prior to entering the operating room.? Rings and piercings that are not removed may be cut off. - The hospital will not accept responsibility for valuables.? - Please leave all valuables, including medications, at home the day of surgery. If you are going home after surgery, a licensed motorcycle delivery driver must drive you home.? - NO public transportation without another adult if you receive anesthesia. - We recommend that an adult stay with you for 24 hours following discharge. - We also recommend that you do not drive, make important decision, drink alcoholic beverages, or take any drugs that were not prescribed by your health care provider for at least 24 hours after your discharge time. Follow any additional instructions given to you from your surgeon. Telephone instructions given to _Ayana__and asked if any additional questions and then verbalized understanding. Patient advised to call surgeon office or pre surgery nurse liaison [phone] if any additional questions.
[2024-04-14] VITALS (10 sets, daily range): BP systolic 96–134; BP diastolic 57–81; PULSE 56–68; RESP 10–14; TEMP 36.3; O2SAT 96–100
--- NOTE | ~2024-04-14 | XR_ITS ---
XR abdomen/kub 1V Ordering provider: Joaquín Taylor MD History: . PRE ESWL FOR LEFT STONE . Comparison: None. FINDINGS: BOWEL: Nonobstructive bowel gas pattern. ORGANOMEGALY: None. SIGNIFICANT PATHOLOGIC CALCIFICATIONS: Bilateral kidney stones. OTHER: No free air is seen under the diaphragm. IMPRESSION: NO ACUTE ABDOMINAL FINDINGS. Bilateral kidney stones. Reviewed, dictated and finalized at location A. 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
[2024-04-14] MEDS: LACTATED RINGERS 1,000 ML 30 ML IV CONT (12:00)
--- NOTE | 2024-04-14 12:01 | WPDHPUPDATE1 ---
History and Physical Update Update Date/Time: 04/14/24 12:01 History and Physical has been reviewed, including an updated exam of the patient. There are NO changes in the patient's condition. Risks, benefits, and alternatives have been discussed and questions answered. Patient agrees to proceed with procedure.
--- NOTE | 2024-04-14 14:25 | WPDANESEPPF ---
Anes - Initial Pre Proc Eval Procedure: Operation Date: 04/14/24 13:30 Proposed Procedures p Left Extracorporeal Shock Wave Lithotripsy - Joaquín Taylor MD Date/Time: 04/14/24 14:25 Surgeon: Joaquín Taylor MD Pre Op Diagnosis: left renal stone Patient Data Age: 58 Gender: F Height: 1.69 m Weight: 79 kg Last Vital Signs Temp 36.3 C L 04/14/24 13:00 Pulse 66 04/14/24 13:00 Resp 14 04/14/24 13:00 BP 129/68 04/14/24 13:00 Pulse Ox 100 04/14/24 13:00 O2 Del Method Room Air 04/14/24 13:00 Allergies Allergy/AdvReac Type Severity Reaction Status Date / Time omeprazole Allergy Severe Chest Pain Verified 04/14/24 14:01 Penicillins Allergy Unknown Unknown Verified 04/14/24 14:01 Home Medications ?Medication ?Instructions ?Recorded ?Confirmed ?Type ubrogepant 100 mg tablet (Ubrelvy) 100 mg PO ONCE 12/07/22 04/08/24 History albuterol sulfate 90 mcg/actuation 2 inh inhalation Q4H PRN shortness 07/26/23 04/08/24 Rx aerosol inhaler of breath or wheezing #8.5 grams cetirizine 10 mg capsule (Zyrtec) 10 mg PO DAILY PRN allergy symptoms 08/02/23 04/08/24 History montelukast 10 mg tablet 10 mg PO DAILY #90 tabs 08/13/23 04/08/24 Rx famotidine 20 mg tablet See Rx Instructions .Route 11/18/23 04/08/24 Rx .COMPLEX #180 tabs zolpidem 5 mg tablet (Ambien) 5 mg PO HS PRN Insomnia #90 tabs 01/28/24 04/08/24 Rx doxycycline hyclate 100 mg capsule 100 mg PO BID #20 caps 04/06/24 04/08/24 Rx prednisone 20 mg tablet 20 mg PO .COMPLEX #15 tabs 04/06/24 04/08/24 Rx galcanezumab-gnlm 120 mg/mL 120 mg subcut MONTHLY 04/08/24 04/08/24 History subcutaneous pen injector (Emgality Pen) Patient hx anesthesia problems: post op nausea/vomiting Family hx anesthesia problems: none Results Review: All pre-operative results and documents have been reviewed as part of the pre-operative evaluation. [facility] Past Medical History Medical History Kidney stones Anxiety Pulmonary nodule Primary insomnia GERD (gastroesophageal reflux disease) Insomnia Raynaud's disease Hx of migraines Anxiety Surgical History Surgical History H/O esophagogastroduodenoscopy Hx of appendectomy 1980 History of tonsillectomy 03/2007 Hx of tubal ligation 09/2001 H/O lithotripsy 2014,2020,2021 Hx of cystoscopy Family History Family History Other Family history of coronary artery disease Social History Social History Social History: 04/03/24 Patient declined SDOH Smoking status: Never smoker Alcohol intake: current Drinks per week: 2 Substance use: never Substance use type: does not use Do You Feel Safe in your Home?: Yes Lack of Transportation: No Lack of Food: Never True Current Housing: I Have Housing Concerned About Future Housing: No Difficulty Paying Gas/Electric Bills: No Difficulty Paying for Meds: No Currently Unemployed: No Education: Trade/Vocational Certificate Difficulty w/ Childcare or Family Care: No Living arrangements: with family Additional living arrangements comments: DAUGHTER Occupation/Education: occupation Gender identity (if verbalized by the patient): Female Sexual Orientation (if Verbalized by the Patient): Straight or Heterosexual Spiritual care concerns: No Anes - Eval Final PreProcedure Day of Procedure 04/14/24 14:25 Patient weight: overweight Heart: regular rate and rhythm Lungs: clear to auscultation Airway: Mallampati scale class II Neurological: alert and oriented Last oral intake: >/= 8 hours ASA classification: III Emergent: no Anesthetic plan: proceed Anesthesia type and monitoring: general LMA and standard monitoring Results Review: All pre-operative results and documents have been reviewed as part of the pre-operative evaluation. Informed Consent: The patient's anesthetic plan and its attendant risks and benefits were discussed with the patient/family/POA. Questions were solicited and answers provided to the satisfaction of the patient/family/POA.
--- NOTE | 2024-04-14 15:11 | W.PM.PROC2 ---
Procedure Note - Detailed Date of Procedure 04/14/24 Pre-op Diagnosis left renal stone Post-op Diagnosis Same Procedure Performed Left renal lithotripsy -2000 shocks to lower pole stones, 500 to upper pole Surgeon Joaquín Taylor MD Anesthesia General Description of Procedure Patient was taken to the operative suite correctly identified. Once anesthesia was obtained the lower pole stones were located. These were identified in both planes. Two thousand shocks were given to the stones and appeared to be fragmentation. The patient was then repositioned where the more upper pole stone was visualized. Five hundred shocks were given to this stone. Patient tolerated procedure well without any complications and was taken recovery stable condition. She will follow-up in approximately 10 days with KUB. This completes dictation. Please send a copy of op note to my office Estimated Blood Loss 0 Drains No Packing No Pathology None sent Complications No immediate complications Condition Stable Disposition PACU
[2024-04-14] MEDS: SCOPOLAMINE 1 MG PATCH 1 PATCH TRANSDERM (15:17)
[2024-04-14] MEDS: fentaNYL CITRATE INJ (*CRX) 100 MCG/2 ML VIAL 25 MCG IV PUSH ×4 (15:45→16:05)
[2024-04-14] MEDS: oxyCODONE HCL (*CRX) 5 MG TAB IR PO (16:39)
[2024-04-14] MEDS: ONDANSETRON INJ 4 MG/2 ML VIAL IV PUSH (16:55)
[2024-04-14] MEDS: oxyBUTYnin CHLORIDE 5 MG TABLET PO (17:21)
[2024-04-14] MEDS: diphenhydrAMINE HCl INJ 50 MG/ML VIAL 25 MG IV PUSH (17:28)
== END 2024-04-14 17:52 | disposition home or self-care (01) ==
PROVIDERS: PCP Nurse Practitioner Family; Visit Provider Urology
PROC: (CPT 50590; principal; 2024-04-14 13:30)
DX: N20.0 Calculus of kidney (principal); F41.9 Anxiety disorder, unspecified; F51.01 Primary insomnia; K21.9 Gastro-esophageal reflux disease without esophagitis; I73.00 Raynaud's syndrome without gangrene; M35.9 Systemic involvement of connective tissue, unspecified; M19.90 Unspecified osteoarthritis, unspecified site; Z79.51 Long term (current) use of inhaled steroids; Z79.52 Long term (current) use of systemic steroids; Z79.85 Long-term (current) use of injectable non-insulin antidiabetic drugs; Z98.890 Other specified postprocedural states; Z98.51 Tubal ligation status; Z80.3 Family history of malignant neoplasm of breast; Z80.49 Family history of malignant neoplasm of other genital organs; Z82.49 Family history of ischemic heart disease and other diseases of the circulatory system
CPT/HCPCS: 50590; 74018; A9270; J0690; J1100; J1200; J2250; J2270; J2405; J2704; J3010; J7120

== ENCOUNTER 2024-06-23 08:35 | Outpatient (CLI) | payer BC, SELFPAY ==
--- NOTE | ~2024-06-23 | XR_ITS ---
EXAMINATION: XR abdomen/kub 1V DATE: 06/23/2024 08:49 INDICATION: Calculus of kidney. TECHNIQUE: A supine view of the abdomen was obtained. COMPARISON: Abdomen radiographs 04/14/2024, chest CT 02/20/2022 FINDINGS: There are no dilated loops of bowel. The upper poles of the kidneys are excluded. There are approximately 3 stones in right kidney measuring up to 4 mm. There is a 2 mm stone in left kidney. T here are phleboliths in the pelvis. IMPRESSION: 1. Bilateral kidney stones. Reviewed, dictated and finalized at location A. LINE TRIMMER IMPRESSION: 1. Bilateral kidney stones.
== END 2024-06-23 08:36 | disposition home or self-care (01) ==
PROVIDERS: PCP Nurse Practitioner Family; Visit Provider Urology
DX: N20.0 Calculus of kidney (principal)
CPT/HCPCS: 74018

== ENCOUNTER 2024-07-10 14:08 | Outpatient (CLI) | payer BC, SELFPAY ==
--- NOTE | ~2024-07-10 | CT_ITS ---
EXAMINATION: CT abdomen pelvis wo con DATE: 07/10/2024 14:51 INDICATION: Calculus of kidney. TECHNIQUE: Computed tomography (CT) of the abdomen and pelvis was performed without intravenous contr ast. Automated exposure control and iterative reconstruction technique were employed. The dose-length product was 227.69 mGy-cm. COMPARISON: CT abdomen and pelvis 05/18/2005 FINDINGS: A calcified left lung nodule is consistent with old granulomas disease. No pleural effusion . The heart size is normal. No pericardial effusion. There is a small sliding hiatal hernia. The live r is normal. There are gallstones in the gallbladder, which is normal in size. The spleen, pancreas, and adrenal glands are normal. There are 5 stones in right kidney measuring up to 3 mm. There is mild right hydronephrosis. There is a 3 mm stone in proximal right ureter. There are 9 stones in left kid romi measuring up to 5 mm. There is diverticulosis of the colon without evidence of diverticulitis. Th ere are no dilated loops of bowel. The appendix is not visualized. There are no pathologically enlarg ed lymph nodes. There is no free intraperitoneal fluid. There is mild thoracic and lumbar spondylosis . IMPRESSION: 1. 3 mm stone in proximal right ureter with mild right hydronephrosis. 2. Bilateral nonobstructing kidney stones. Reviewed, dictated and finalized at location L.
--- OUTSIDE RECORDS SUMMARY | 2024-07-10 14:11 | XMS_ITS | Continuity of Care Document ---
[facility] Organization [facility] Address [address] [place] [address] Phone Care Team Providers Care Helicopter Pilot Instructor Name Role Phone Emilie Castillo Unavailable Unavailable [...] Diagnoses Date Provider Providers Copied on Encounter [employer], [address], [place], [place], [id number] , tel: [phone] [facility] No Information 0 9 Laura Phan. [address] [facility], [address], [place], [place], [address], . tel: [phone] [facility], [address], [place], [place], [address] , tel: [phone] Conversion Department No Information 0 1 Conversion Doctor. [facility] [place], [address], [place]. [facility], [address], [place], [place], [id number] , tel: [phone] [facility] JOINT PAIN-ANKLE 0 Conversion Doctor. [facility] [place], [address], [place]. [facility], [address], [place], [place], [address] , tel: [phone] [facility] COUGH 0 Conversion Doctor. [address] [place] [address], [address], [place]. [facility], [address], [place], [place], [address] , tel: [phone] [facility] INSOMNIA NOS Jun-0 9 Conversion Doctor. [address] [place] [address], [address], [place]. [facility], [address], [place], [place], [id number] , tel: [phone] [facility] CHEST PAIN NOSLONG-TERM USE MEDS NECSCREEN LIPOID DISORDERSMALAISE AND FATIGUE NEC Nov- 0-200 8 Tony Baeza. [address] [facility], [address], [place], [place], [address], [place]. tel: [phone] [facility], [address], [place], [place], [address] , tel: [phone] [facility] OTALGIA NOSALOPECIA NOSANXIETY STATE NOSURIN TRACT INFECTION NOS Feb- 0200 8 Laura Phan. [address] [facility], [address], [place], [place], [address], [place]. tel: [phone] [facility], [address], [place], [place], [address] , tel: [phone] [facility] ACUTE URI NOS 7 Conversion Doctor. [facility] [place], [address], . [facility], [address], [place], [place], [address] , tel: [phone] [facility] ACUTE SINUSITIS NOS 7 Laura Phan. [address] , [address], [place], [place], [address], [place]. tel:[phone] [facility], [address], [place], [place], [address] , tel: [phone] [facility] ALLERGIC RHINITIS NOS 7 Conversion Doctor. [facility], [place], [address], . Family History Family Member Type Diagnosis [...]
--- OUTSIDE RECORDS SUMMARY | 2024-07-10 14:11 | XMS_ITS | Patient Health Summary ---
Author Organization [facility] AdKeeper Address [address] [place] [address] Care Team Providers Care Flash Developer Name Role Phone Aisha Heller Primary Care Provider [phone] Note from [facility],non-owned Affiliates and Associated Physician Practices is amultiple site organization consisting of ambulatory clinics and hospital sitesin [place], [place], [place] and [place]. This disclosure is being madepursuant to the Care Everywhere program and may not contain all information available regarding this patient. Last updated 18.[facility] Allergies * Omeprazole(GI Discomfort) * Penicillins(Swelling) Medications * Be aware that medications may not be up to date on this document. Alwaysverify current medications with the patient. * zolpidem (Ambien) 5 MG tablet(Started 03/06/2023) * Ubrelvy 100 MG tablet(Started 02/12/2023) * famotidine (Pepcid) 20 MG tablet(Started 02/19/2023) Take 1 (one) tablet by mouth 2 times daily * cyanocobalamin (Vitamin B-12) 100 MCG tablet Take 1 (one) tablet by mouth once daily * cetirizine (ZyrTEC) 10 MG chew tablet Take 1 (one) tablet by mouth once daily * magnesium gluconate 500 (27 Mg) MG tablet Take 1 (one) tablet by mouth once daily * vitamin D, ergocalciferol, (Drisdol) 1.25 MG (46913 UT) capsule(Started 03/08/2023) Take 1 (one) capsule by mouth every 7 days Social History Tobacco Use Types Packs/Day Years Used Date Smoking Tobacco: Never Smokeless Tobacco: Never Tobacco Cessation:Counseling Given: Not Answered Alcohol Use Standard Drinks/Week Comments Yes 0 (1 standard drink = 0.6 oz pur e alcohol) social PHQ-2 Answer Date Recorded Patient Health Questionnaire-2 Score 0 03/07/2023 Sex and Gender Information Value Date Recorded Sex Assigned at Not on file Gender Identity Not on file Sexual Orientation Not on file Last Filed Vital Signs Vital Sign Reading Time Taken Comments Blood Pressure 134/84 04/15/2023 2:24 PM [facility] Pulse 70 04/15/2023 2:24 PM [facility] Temperature 36.4 C (97.5 F) 04/15/2023 2:24 PM [facility] Respiratory Rate - - Oxygen Saturation 70% 04/15/2023 2:24 PM [facility] Inhaled Oxygen Concentration - - Weight 87.5 kg (193 lb) 04/15/2023 2:24 PM [facility] Height 167.6 cm (5' 5.98 ) 04/15/2023 2:[address] Body Mass Index 31.17 04/15/2023 2:24 PM [facility] Procedures * BETA-2 GLYCOPROTEIN 1 ANTIBODY IGA(Performed 04/15/2023) Performed for Raynaud's disease without gangrene * BETA-2 GLYCOPROTEIN 1 ANTIBODY IGG/IGM PANEL(Performed 04/15/2023) Performed for Raynaud's disease without gangrene * CARDIOLIPIN ANTIBODY IGG(Performed 04/15/2023) Performed for Raynaud's disease without gangrene * CARDIOLIPIN ANTIBODY IGM(Performed 04/15/2023) Performed for Raynaud's disease without gangrene * LUPUS ANTICOAGULANT PANEL(Performed 04/15/2023) Performed for Raynaud's disease without gangrene * IRMA HEP-2 IGG BY IFA(Performed 03/07/2023) Performed for Raynaud's disease without gangrene * RICARDO/FILTERER (CARMEL) ANTIBODY IGG(Performed 03/07/2023) Performed for Raynaud's disease without gangrene * MARIVEL-1 ANTIBODY(Performed 03/07/2023) Performed for Raynaud's disease without gangrene, Screening-pulmonary TB, Need for hepatitis B screening test, Need for hepatitis C screening test * TSH REFLEX FREE T4(Performed 03/07/2023) Performed for Raynaud's disease without gangrene * ALDOLASE(Performed 03/07/2023) Performed for Raynaud's disease without gangrene * CK BLOOD(Performed 03/07/2023) Performed for Raynaud's disease without gangrene * RNA POLYMERASE III ANTIBODY IGG(Performed 03/07/2023) Performed for Raynaud's disease without gangrene * RICARDO (SM) ANTIBODY CARMEL(Performed 03/07/2023) Performed for Raynaud's disease without gangrene * SCLERODERMA 70 (SCL) ANTIBODY(Performed 03/07/2023) Performed for Raynaud's disease without gangrene * DNA ANTIBODY DOUBLE STRANDED(Performed 03/07/2023) Performed for Raynaud's disease without gangrene * CHROMATIN ANTIBODY(Performed 03/07/2023) Performed for Raynaud's disease without gangrene * CENTROMERE ANTIBODY(Performed 03/07/2023) Performed for Raynaud's disease without gangrene * IRMA BLOOD SCREEN W/REFLEX TITER(Performed 03/07/2023) Performed for Raynaud's disease without gangrene * SS-B (SJOGREN'S) ANTIBODY(Performed 03/07/2023) Performed for Raynaud's disease without gangrene * CYCLIC CITRULLINATED PEPTIDE(CCP) AB IGG(Performed 03/07/2023) Performed for Raynaud's disease without gangrene * RHEUMATOID FACTOR BLOOD QUANTITATIVE(Performed 03/07/2023) Performed for Raynaud's disease without gangrene * QUANTIFERON-TB GOLD PLUS 4-TUBE(Performed 03/07/2023) Performed for Raynaud's disease without gangrene, Screening-pulmonary TB * HEPATITIS C ANTIBODY(Performed 03/07/2023) Performed for Raynaud's disease without gangrene, Need for hepatitis C screening test * HEPATITIS B CORE ANTIBODY TOTAL(Performed 03/07/2023) Performed for Raynaud's disease without gangrene, Need for hepatitis B screening test * HEPATITIS B SURFACE ANTIGEN W RFLX CONFIRMATION(Performed 03/07/2023) Performed for Raynaud's disease without gangrene, Need for hepatitis B screening test * ERYTHROCYTE SEDIMENTATION RATE(Performed 03/07/2023) Performed for Raynaud's disease without gangrene * C-REACTIVE PROTEIN(Performed 03/07/2023) Performed for Raynaud's disease without gangrene * COMPREHENSIVE METABOLIC PANEL(Performed 03/07/2023) Performed for Raynaud's disease without gangrene * CBC W AUTO DIFFERENTIAL(Performed 03/07/2023) Performed for Raynaud's disease without gangrene * CRYOGLOBULIN QUALITATIVE(Performed 03/07/2023) Performed for Raynaud's disease without gangrene * TSH HI LOW REFLEX FREE T4(Performed 12/27/2011) * CULTURE FUNGUS OTHER+FUNGUS SMEAR(Performed 08/16/2011) * FUNGUS GOGO - POINT OF CARE (AMB) [facility](Performed 04/29/1998) * WET PREP - POINT OF CARE (AMB) [facility](Performed 04/29/1998) * PH FLUID - POCT (AMB) [facility](Performed 04/29/1998) Results * (ABNORMAL) LUPUS ANTICOAGULANT PANEL (04/15/2023 3:34 PM [facility]) APTT 26.3 23.0 - 38.4 Seconds 04/16/2023 12:49 PM [facility] PT 11.5(L) 12.1 - 14.8 Seconds 04/16/2023 12:49 PM [facility] INR 0.9 See Comment 04/16/2023 12:49 PM [facility] Buffer 39.7 Seconds 023 12:49 PM [facility] Phospholipid 37.3 Seconds 04/16/2023 12:49 PM [facility] Delta 2.4 <8.0 Seconds 04/16/2023 12:49 PM [facility] Interpretation [facility] Negative 04/16/2023 12:49 PM [facility] Comment:Up to 15-20% of tejas ents with lupus anticoagulant associated with antiphospholipid antibody syndrome (APAS) will have negative [facility]LOT-LA results. For these patients we recommend additional testing to include the Dilute Scot Viper Venom Time (DRVVT) test. Immunoassay measurements of anti-cardiolipin and anti-beta-2 glycoprotein 1 are recommended if the DRVVT, and STACLOT-LA tests are negative and there is clinical suspicion of APAS. Blood BLOOD SPECIMEN / Unknown Lab Venipuncture / Unknown 04/15/2023 3:34 PM [facility] 04/15/2023 4:31 PM [facility] Tony Johnston MD LAB - HEMATOLOGY ORD ERABLES [facility] [address] [place] [address], [facility] [phone] * CARDIOLIPIN ANTIBODY IGM (04/15/2023 3:34 PM BELLY DANCER) Pathologist [facility] Cardiolipin Antibody IgM <10 <=12 MPL 04/18/2023 10:58 AM BELLY DANCER [employer] ([facility]) Comment: INTERPRETIVE INFORMATION: Anti-Cardiolipin IgM <=12 MPL: Negative 13-19 MPL: Indeterminate 20-80 MPL: Low to Moderately Positive 81 MPL or above: High Positive The persistent presence of IgG and/or IgM cardiolipin (CL) antibodies in moderate or high levels (greater than 40 GPL and/or greater than 40 MPL units) is a laboratory criterion for the diagnosis of antiphospholipid syndrome (APS). Persistence is defined as moderate or high levels of IgG and/or IgM CL antibodies detected in two or more specimens drawn at least 12 weeks apart (J Throm Haemost. 2006;4:295-306). Lower positive levels of IgG and/or IgM CL antibodies (above cutoff but less than 40 GPL and/or less than 40 MPL units) may occur in patients with the clinical symptoms of APS; therefore, the actual significance of these levels is undefined. Results should not be used alone for diagnosis and must be interpreted in light of APS-specific clinical manifestations and/or other criteria phospholipid antibody tests. Performed By: [employer] [address] [place] [address] [address] House: Audi Sandoval MD, PhD CLIA Number: [id number] Blood BLOOD SPECIMEN / Unknown Lab Venipuncture / Unknown 04/15/2023 3:34 PM [facility]ER 04/15/2023 4:32 PM [employer] Tony Johnston MD LAB - SEROLOGY ORDER MALATHI Performing Organization Address City/[facility]/ZIP Co de Phone Number [employer] [facility]) [address] * CARDIOLIPIN ANTIBODY IGG (04/15/2023 3:34 PM BELLY D[employer]ER) Cardiolipin Antibody IgG <10 <=14 GPL 04/18/2023 10:58 AM BELLY DANCER [employer] ([facility]) Comment: INTERPRETIVE INFORMATION: Anti-Cardiolipin IgG Ab <=14 GPL: Negative 15-19 GPL: Indeterminate 20-80 GPL: Low to Moderately Positive 81 GPL or above: High Positive The persistent presence of IgG and/or IgM cardiolipin (CL) antibodies in moderate or high levels (greater than 40 GPL and/or greater than 40 MPL units) is a laboratory criterion for the diagnosis of antiphospholipid syndrome (APS). Persistence is defined as moderate or high levels of IgG and/or IgM CL antibodies detected in two or more specimens drawn at least 12 weeks apart (J Throm Haemost. 2006;4:295-306). Lower positive levels of IgG and/or IgM CL antibodies (above cutoff but less than 40 GPL and/or less than 40 MPL units) may occur in patients with the clinical symptoms of APS; therefore, the actual significance of these levels is undefined. Results should not be used alone for diagnosis and must be interpreted in light of APS-specific clinical manifestations and/or other criteria phospholipid antibody tests. Performed By: [employer] [address] [place] [address] Superintendent House: Audi Sandoval MD, PhD CLIA Number: [id number] Blood BLOOD SPECIMEN / Unknown Lab Venipuncture / Unknown 04/15/2023 3:34 PM [facility]ER 04/15/2023 4:32 PM [employer] Tony Johnston MD LAB - SEROLOGY ORDER MALATHI Performing Organization Address [facility]/ZIP Co de Phone Number [employer] ([facility]) [address] * BETA-2 GLYCOPROTEIN 1 ANTIBODY IGA (04/15/2023 3:34 PM [facility]LLY [employer]ER) Beta-2 Glycoprotein Antibody IgA <10 <=20 PEREZ 04/17/2023 11:45 PM [facility]LLY D[facility]ER [facility] ([facility]) Comment: Performed By: [facility] [address] [place] [address] Superintendent House: Audi Sandoval MD, PhD CLIA Number: [id number] Blood BLOOD SPECIMEN / Unknown Lab Venipuncture / Unknown 04/15/2023 3:34 PM [facility] D[facility]ER 04/15/2023 4:32 PM [employer] Tony Johnston MD LAB - SEROLOGY ORDER MALATHI [facility]) [address] [place] [address], [facility] * BETA-2 GLYCOPROTEIN 1 ANTIBODY IGG/IGM PANEL (04/15/2023 3:34 PM [facility] [employer]) Beta-2 Glycoprotein Antibody IgG <10 <=20 SGU 04/17/2023 11:45 PM [facility]LLY D[facility]ER [facility] ([facility]) Beta-2 Glycoprotein Antibody IgM <10 <=20 SMU 04/17/2023 11:45 PM [facility] ([facility]) Comment: INTERPRETIVE INFORMATION: [id number] I, IgG and IgM Antibody The persistent presence of IgG and/or IgM beta 2 glycoprotein I (B2GPI) antibodies is a laboratory criterion for the diagnosis of antiphospholipid syndrome (APS). Persistence is defined as moderate or high levels of IgG and/or IgM B2GPI antibodies detected in two or more specimens drawn at least 12 weeks apart (J Throm Haemost. 2006;4:295-306). B2GPI results greater than 20 SGU (IgG) and/or SMU (IgM) are considered positive based on the cutoff values established for this test. International reference materials and consensus units for anti-B2GPI antibodies have not been established (Clin Chen Acta. 2012;413(1-2):358-60; Arthritis Rheum. 2012;64(1):1-10.); results can be variable between different commercial immunoassays and cannot be compared. Strong clinical correlation is recommended for a diagnosis of APS. Low positive IgG and IgM B2GPI antibody levels should be interpreted in light of APS-specific clinical manifestations and/or other criteria phospholipid antibody tests. Performed By: [employer] [address] [place] [address] Superintendent House: Audi Sandoval MD, PhD CLIA Number: [id number] Blood BLOOD SPECIMEN / Unknown Lab Venipuncture / Unknown 04/15/2023 3:34 PM [facility] 04/15/2023 4:32 PM [employer] Tony Johnston MD LAB - CHEMISTRY CHIDI WATERS [facility]) [address] [place] [address], [facility] * IRMA HEP-2 IGG BY IFA (03/07/2023 12:15 PM BELLY [employer]ER) IRMA HEp-2 IgG <1:80 <1:80 03/10/2023 5:02 AM BELLY DANCER [employer] ([facility]) IRMA Interpretive Comment See Note 03/10/2023 5:02 AM BELLY DANCER [employer] ([facility]) Comment: Antinuclear antibodies by IFA negative for homogeneous, speckled, nucleolar, centromere, and nuclear dots patterns. Cytoplasmic antibodies by IFA negative for reticular/AMA, discrete/GW body-like, polar/golgi-like, rods and rings, and cytoplasmic speckled patterns. INTERPRETIVE INFORMATION: IRMA Interpretive Comment Presence of antinuclear antibodies (IRMA) is a hallmark feature of systemic autoimmune rheumatic diseases (SARD). However, IRMA lacks diagnostic specificity and is associated with a variety of diseases (cancers, autoimmune, infectious, and inflammatory conditions) and may also occur in healthy individuals in varying prevalence. The lack of diagnostic specificity requires confirmation of positive IRMA by more specific serologic tests. IRMA (nuclear reactivity) positive patterns reported include centromere, homogeneous, nuclear dots, nucleolar, or speckled. IRMA (cytoplasmic reactivity) positive patterns reported include reticular/AMA, discrete/GW body-like, polar/golgi-like, cytoplasmic speckled or rods and rings. All positive patterns are reported to endpoint titers (1:2560). Reported patterns may help guide differential diagnosis, although they may not be specific for individual antibodies or diseases. Mitotic staining patterns not reported. Negative results do not necessarily rule out SARD. Performed By: [employer] [address] [place] [address] Superintendent House: Audi Sandoval MD, PhD CLIA Number: [id number] Blood BLOOD SPECIMEN / Unknown Lab Venipuncture / Unknown 03/07/2023 12:15 PM BE[facility]ER 03/07/2023 12:38 PM [employer] Tony Johnston MD LAB - SEROLOGY ORDER MALATHI Performing Organization Address [facility] de Phone Number [facility] [employer] [facility]) [address] [place] [address] * RICARDO/FILTERER (CARMEL) ANTIBODY IGG (03/07/2023 12:15 PM BELLY D[employer]ER) Ricardo/FILTERER (CARMEL) Antibody IgG 8 0 - 19 Units 03/10/2023 5:39 AM BELLY D[facility]ER [facility] [employer] ([facility]) Comment: INTERPRETIVE INFORMATION: Ricardo/FILTERER (CARMEL) Antibody, IgG 19 Units or Less ............. Negative 20 to 39 Units ............... Weak Positive 40 to 80 Units ............... Moderate Positive 81 Units or greater .......... Strong Positive Ricardo/FILTERER antibodies are frequently seen in patients with mixed connective tissue disease (MCTD) and are also associated with other systemic autoimmune rheumatic diseases (SARDs) such as systemic lupus erythematosus (SLE), systemic sclerosis, and myositis. Antibodies targeting the Ricardo/FILTERER antigenic complex also recognize Ricardo antigens, therefore, the Ricardo antibody response must be considered when interpreting these results. Performed By: [employer] [address] [place] [address] Superintendent House: Audi Sandoval MD, PhD CLIA Number: [id number] Blood BLOOD SPECIMEN / Unknown Lab Venipuncture / Unknown 03/07/2023 12:15 PM BELLY D[facility]ER 03/07/2023 12:38 PM [employer] Tony Johnston MD LAB - CHEMISTRY ORDE RABSANDOR Performing Organization Address [facility]/ZIP Co de Phone Number [facility] [employer] ([facility]) [address] * QUANTIFERON-TB GOLD PLUS 4-TUBE (03/07/2023 12:15 PM BELLY DANCER) [facility] QuantiFERON NIL 0.01 IU/mL 3 5:03 PM BELLY DANCER [employer] ([facility]) Comment: Performed By: [employer] [address] [place] [address] Superintendent House: Audi Sandoval MD, PhD CLIA Number: [id number] QuantiFERON TB Gold Plus Negative Negative 03/09/2023 5:03 PM BELLY DANCER [employer] ([facility]) Comment: Interpretive Data: Quantiferon TB Gold Plus Interferon gamma release is measured for specimens from each of the four collection tubes. A qualitative result (Negative, Positive, or Indeterminate) is based on interpretation of the four values, NIL, MITOGEN minus NIL (MITOGEN-NIL), TB1 minus NIL (TB1-NIL), and TB2 minus NIL (TB2-NIL). The NIL value represents nonspecific reactivity produced by the patient specimen. The MITOGEN-NIL value serves as the positive control for the patient specimen, demonstrating successful lymphocyte activity. The TB1-NIL tube specifically detects CD4+ lymphocyte reactivity, specifically stimulated by the TB1 antigens. The TB2-NIL tube detects both CD4+ and CD8+ lymphocyte reactivity, stimulated by TB2 antigens. An overall Negative result does not completely rule out TB infection. A false-positive result in the absence of other clinical evidence of TB infection is not uncommon. Refer to: Updated Guidelines for Using Interferon Gamma Release Assays to Detect Mycobacterium tuberculosis Infection --- [place], 2010 (http://www.cdc.gov/mmwr/preview/mmwrhtml/sk7814n0.htm), for more information concerning test performance in low-prevalence populations and use in occupational screening. QuantiFERON Plus TB1 Minus NIL 0.01 0.00 - 0.34 IU/mL 03/09/2023 5:03 PM BELLY DANCER [employer] ([facility]) QuantiFERON Plus TB2 Minus NIL 0.01 0.00 - 0.34 IU/mL 03/09/2023 5:03 PM BELLY DANCER [employer] ([facility]) QuantiFERON Mitogen Minus NIL >10.00 IU/mL 03/09/2023 5:03 PM BELLY DANCER [employer] ([facility]) Blood BLOOD SPECIMEN / Unknown Lab Venipuncture / Unknown 03/07/2023 12:15 PM BELLY [employer]ER 03/07/2023 12:39 PM [employer]LLY [employer]ER Tony Johnston MD LAB - CHEMISTRY ORDE JT Performing Organization Address [facility] de Phone Number [employer] [facility]) [address] * CHROMATIN ANTIBODY (03/07/2023 12:15 PM BELLY DANCER) Chromatin Antibody 14 0 - 19 Units 03/12/2023 3:17 PM BELLY D[employer]ER [employer] ([facility]) Comment: INTERPRETIVE INFORMATION: Chromatin Antibody, IgG 19 Units or less: Negative 20 - 60 Units: Moderate Positive 61 Units or greater: Strong Positive The presence of anti-chromatin antibodies may be useful in the diagnosis of systemic lupus erythematosus (SLE) or drug-induced lupus (DIL) and have been reported to be predictive of lupus nephritis, especially when antibody levels are high. Performed By: [employer] [address] [place] [address] Superintendent House: Audi Sandoval MD, PhD CLIA Number: [id number] Blood BLOOD SPECIMEN / Unknown Lab Venipuncture / Unknown 03/07/2023 12:15 PM BELLY DANCER 03/07/2023 12:38 PM BELLY D[employer]ER Tony Johnston MD LAB - SEROLOGY ORDER MALATHI Performing Organization Address [facility] de Phone Number [facility] [employer] [facility]) [address] * RNA POLYMERASE III ANTIBODY IGG (03/07/2023 12:15 PM BELLY DANCER) RNA Polymerase 3 Antibody IgG 9 0 - 19 Units 03/10/2023 12:05 AM BELLY DANCER [employer] ([facility]) Comment: INTERPRETIVE INFORMATION: RNA Polymerase III Antibody, IgG 19 Units or less ......Negative 20 - 39 Units .........Weak Positive 40 - 80 Units .........Moderate Positive 81 Units or greater ...Strong Positive The presence of RNA polymerase III IgG antibody, when considered in conjunction with other laboratory and clinical findings, is an aid in the diagnosis of systemic sclerosis (SSc) with increased incidence of skin involvement and renal crisis with the diffuse cutaneous form of SSc. RNA polymerase III IgG antibody occur in about 11-23 percent of SSc patients, and typically in the absence of anti-centromere and anti-Scl-70 antibodies. A negative result indicates no detectable IgG antibodies to the dominant antigen of RNA polymerase III and does not rule out the possibility of SSc. False-positive results may also occur due to non-specific binding of immune complexes. Strong clinical correlation is recommended. If clinical suspicion remains, consider additional testing for other antibodies associated with SSc, including centromere, Scl-70, U3-FILTERER, PM/Scl, or Th/To. Performed By: [place] [address] Superintendent House: Audi Sandoval MD, PhD CLIA Number: [id number] Blood BLOOD SPECIMEN / Unknown Lab Venipuncture / Unknown 03/07/2023 12:15 PM BELLY DANCER 03/07/2023 12:38 PM BELLY DANCER Tony Johnston MD LAB - SEROLOGY ORDER MALATHI Performing Organization Address City/[facility]/ZIP Co de Phone Number [facility] ([facility]) [address] [place] [id number] [place] [address] * TSH REFLEX FREE T4 (03/07/2023 12:15 PM BELLY DANCER) Pathologist [facility] TSH 0.988 0.350 - 4.940 uIU/mL 03/07/2023 1:39 PM BELLY DANCER [facility] Blood BLOOD SPECIMEN / Unknown Lab Venipuncture / Unknown 03/07/2023 12:15 PM BELLY DANCER 03/07/2023 12:46 PM BELLY DANCER Tony Johnston MD LAB - CHEMISTRY ORDNickolas WATERS Performing Organization Address City/[facility]/ZIP Co de Phone Number [address] [address], [place] [phone] * RICARDO (SM) ANTIBODY CARMEL (03/07/2023 12:15 PM BELLY DANCER) Pathologist [facility] Ricardo (CARMEL) Antibody 4 0 - 40 AU/mL 03/09/2023 2:39 PM BELLY DANCER [facility] ([facility]) Comment: INTERPRETIVE INFORMATION: Ricardo (CARMEL) Antibody, IgG 29 AU/mL or Less ............. Negative 30 - 40 AU/mL ................ Equivocal 41 AU/mL or Greater .......... Positive Ricardo antibody is highly specific (greater than 90 percent) for systemic lupus erythematosus (SLE) but only occurs in 30-35 percent of SLE cases. The presence of antibodies to Ricardo has variable associations with SLE clinical manifestations. Performed By: [facility] [address] [place] [address] Superintendent House: Audi Sandoval MD, PhD CLIA Number: [id number] Blood BLOOD SPECIMEN / Unknown Lab Venipuncture / Unknown 03/07/2023 12:15 PM BELLY DANCER 03/07/2023 12:38 PM BELLY DANCER Tony Johnston MD LAB - CHEMISTRY CHIDI W[facility]) [address] [place], [place] [address] * RHEUMATOID FACTOR BLOOD QUANTITATIVE (03/07/2023 12:15 PM BELLY DANCER) [facility] Rheumatoid Factor <15 <30 IU/mL 03/07/2023 1:37 PM BELLY DANCER [facility] Rheumatoid Factor Screen Negative Negative 03/07/2023 1:37 PM BELLY DANCER [facility] Blood BLOOD SPECIMEN / Unknown Lab Venipuncture / Unknown 03/07/2023 12:15 PM BELLY DANCER 03/07/2023 12:38 PM BELLY DANCER Tony Johnston MD LAB - CHEMISTRY [facility]IDI WATERS [address] [address], [facility] [phone] * C-REACTIVE PROTEIN (03/07/2023 12:15 PM BELLY DANCER) [facility] C-Reactive Protein <0.5 <=0.5 mg/dL 03/07/2023 1:51 PM BELLY DANCER [facility] Blood BLOOD SPECIMEN / Unknown Lab Venipuncture / Unknown 03/07/2023 12:15 PM BELLY DANCER 03/07/2023 12:38 PM BELLY DANCER Tony Johnston MD LAB - CHEMISTRY [facility]I [facility]ATERS [address] [address], [facility] [phone] * (ABNORMAL) IRMA BLOOD SCREEN W/REFLEX TITER (03/07/2023 12:15 PM BELLY DANCER) IRMA IgG Detected (A) None Detected 03/09/2023 1:28 AM BELLY DANCER [employer] ([facility]) Comment: Antibodies to Anti-Nuclear Antibodies (IRMA) detected. Additional testing to follow. INTERPRETIVE INFORMATION: Anti-Nuclear Antibodies (IRMA), IgG by JILLIAN Antinuclear Antibodies (IRMA), IgG by JILLIAN: IRMA specimens are screened using enzyme-linked immunosorbent assay (JILLIAN) methodology. All JILLIAN results reported as Detected are further tested by indirect fluorescent assay (IFA) using HEp-2 substrate with an IgG-specific conjugate. The IRMA JILLIAN screen is designed to detect antibodies against dsDNA, histones, SS-A (Ro), SS-B (La), Ricardo, Ricardo/FILTERER, Scl-70, Marivel-1, centromeric proteins, other antigens extracted from the HEp-2 cell nucleus. IRMA JILLIAN assays have been reported to have lower sensitivities than IRMA IFA for systemic autoimmune rheumatic diseases (SARD). Negative results do not necessarily rule out SARD. Performed By: [employer] [address] [place] [address] Superintendent House: Audi Sandoval MD, PhD CLIA Number: [id number] Blood BLOOD SPECIMEN / Unknown Lab Venipuncture / Unknown 03/07/2023 12:15 PM BELLY DANCER 03/07/2023 12:38 PM BELLY DANCER Tony Johnston MD LAB - CHEMISTRY CHIDI WATERS [employer] [facility]) [address] [place] [address] * CENTROMERE ANTIBODY (03/07/2023 12:15 PM BELLY DANCER) Centromere Antibody 1 0 - 40 AU/mL 03/09/2023 12:48 PM BELLY DANCER [facility] [employer] ([facility]) Comment: INTERPRETIVE INFORMATION: Centromere Ab, IgG 29 AU/mL or Less ............. Negative 30 - 40 AU/mL ................ Equivocal 41 AU/mL or Greater .......... Positive When detected by this multiplex bead assay, the presence of centromere antibodies is mainly associated with CREST syndrome, a variant of systemic sclerosis (SSc). These antibodies target the centromere B, a dominant antigen of the centromeric complex associated with the centromere pattern observed in antinuclear antibody (IRMA) testing by IFA. Centromere antibodies may also be seen in a varying percentage of patients with other autoimmune diseases, including diffuse cutaneous SSc, Raynaud syndrome, interstitial pulmonary fibrosis, autoimmune liver disease, systemic lupus erythematosus (SLE) and rheumatoid arthritis (RA). A negative result indicates no detectable IgG antibodies to centromere B. If the result is negative but clinical suspicion for SSc is strong, consider testing for IRMA by IFA along with other antibodies associated with SSc, including Scl-70, U3-FILTERER, PM/Scl, or Th/To. Performed By: [employer] [address] [place] [address] Superintendent House: Audi Sandoval MD, PhD CLIA Number: [id number] Blood BLOOD SPECIMEN / Unknown Lab Venipuncture / Unknown 03/07/2023 12:15 PM BELLY DANCER 03/07/2023 12:38 PM BELLY DANCER Tony Johnston MD LAB - CHEMISTRY CHIDI WATERS [facility]) [address] [place] [address] * SS-B (SJOGREN'S) ANTIBODY (03/07/2023 12:15 PM BELLY DANCER) Pathologist [facility] SS-B Antibody 3 0 - 40 AU/mL 03/09/2023 2:40 PM BELLY DANCER [employer] ([facility]) Comment: INTERPRETIVE INFORMATION: SSB (La) (CARMEL) Ab, IgG 29 AU/mL or Less ............. Negative 30 - 40 AU/mL ................ Equivocal 41 AU/mL or Greater .......... Positive SSB (La) antibody is seen in 50-60% of Sjogren syndrome cases and is specific if it is the only CARMEL antibody present. 15-25% of patients with systemic lupus erythematosus (SLE) and 5-10% of patients with progressive systemic sclerosis (PSS) also have this antibody. Performed By: [employer] [address] [place] [address] Superintendent House: Audi Sandoval MD, PhD CLIA Number: [id number] Blood BLOOD SPECIMEN / Unknown Lab Venipuncture / Unknown 03/07/2023 12:15 PM BELLY DANCER 03/07/2023 12:38 PM BELLY DANCER Tony Johnston MD LAB - CHEMISTRY CHIDI WATERS [facility] Organization Address City/State/ZIP Co de Phone Number [employer] [facility]) [address] [place], [place] [address] * SCLERODERMA 70 (SCL) ANTIBODY (03/07/2023 12:15 PM BELLY DANCER) Pathologist [facility] SCL-70 Antibody 1 0 - 40 AU/mL 03/09/2023 12:48 PM BELLY DANCER [facility] ([facility]) Comment: INTERPRETIVE INFORMATION: Scleroderma (Scl-70) (CARMEL) Ab, IgG 29 AU/mL or Less ............. Negative 30 - 40 AU/mL ................ Equivocal 41 AU/mL or Greater .......... Positive The presence of Scl-70 antibodies (also referred to as topoisomerase I, brooklyn-I or NI) is considered diagnostic for systemic sclerosis (SSc). Scl-70 antibodies alone are detected in about 20 percent of SSc patients and are associated with the diffuse form of the disease, which may include specific organ involvement and poor prognosis. Scl-70 antibodies have also been reported in a varying percentage of patients with systemic lupus erythematosus (SLE). Scl-70 (brooklyn-1) is a DNA binding protein and anti-DNA/DNA complexes in the sera of SLE patients may bind to brooklyn-I, leading to a false-positive result. The presence of Scl-70 antibody in sera may also be due to contamination of recombinant Scl-70 with DNA derived from cellular material used in immunoassays. Strong clinical correlation is recommended if both Scl-70 and dsDNA antibodies are detected. Negative results do not necessarily rule out the presence of SSc. If clinical suspicion remains, consider further testing for centromere, RNA polymerase III and U3-FILTERER, PM/Scl, or Th/To antibodies. Performed By: [employer] [address] [place] [address] Superintendent House: Audi Sandoval MD, PhD CLIA Number: [id number] Blood BLOOD SPECIMEN / Unknown Lab Venipuncture / Unknown 03/07/2023 12:15 PM BELLY DANCER 03/07/2023 12:38 PM BELLY DANCER Tony Johnston MD LAB - CHEMISTRY CHIDI WATERS [facility] Organization Address City/State/ZIP Co de Phone Number [employer] ([facility]) [address] [place] [address], [facility] * DNA ANTIBODY DOUBLE STRANDED (03/07/2023 12:15 PM BELLY DANCER) Pathologist [facility] dsDNA Antibody 7 0 - 24 IU 03/08/2023 8:21 PM BELLY DANCER [facility] [employer] ([facility]) Comment: INTERPRETIVE INFORMATION: Double-Stranded DNA (dsDNA) Ab IgG JILLIAN 24 IU or less........Negative 25-30 IU.............Borderline Positive 30-60 IU.............Low Positive 60-200 IU............Positive 201 IU or greater....Strong Positive Positivity for anti-double stranded DNA (anti-dsDNA) IgG antibody is a diagnostic criterion of systemic lupus erythematosus (SLE). Specimens are initially screened by enzyme-linked immunosorbent assay (JILLIAN). If ordered as reflex ([id number]), positive JILLIAN results (>24 IU) will be reflexed to a highly specific IFA titer (Crithidia luciliae indirect fluorescent test [CARLYN') for confirmation. Some patients with early or inactive SLE may be positive for anti-dsDNA IgG by JILLIAN but negative by CARLYN. If the patient is negative by CARLYN but positive by JILLIAN and clinical suspicion remains, consider antinuclear antibody (IRMA) testing by IFA. Additional information and recommendations for testing may be found at [email or web address]. Performed By: [employer] [address] [place] [address] Superintendent House: Audi Sandoval MD, PhD CLIA Number: [id number] Blood BLOOD SPECIMEN / Unknown Lab Venipuncture / Unknown 03/07/2023 12:15 PM BELLY DANCER 03/07/2023 12:38 PM BELLY DANCER Tony Johnston MD LAB - HEMATOLOGY ORD ERABLES [facility] [employer] [facility]) [address] [place] [address], [facility] * MARIVEL-1 ANTIBODY (03/07/2023 12:15 PM BELLY DANCER) Pathologist [facility] Marivel-1 Antibody IgG 1 0 - 40 AU/mL 03/09/2023 12:48 PM BELLY DANCER [facility] ([facility]) Comment: INTERPRETIVE INFORMATION: Marivel-1 Antibody, IgG 29 AU/mL or less.........Negative 30-40 AU/mL..............Equivocal 41 AU/mL or greater......Positive Presence of Marivel-1 (antihistidyl transfer RNA [t-RNA' synthetase) antibody is associated with polymyositis and may also be seen in patients with dermatomyositis. Marivel-1 antibody is associated with pulmonary involvement (interstitial lung disease), Raynaud phenomenon, arthritis, and electrical experimental mechanic's hands (implicated in antisynthetase syndrome). Performed By: [employer] [address] [place] [address] Superintendent House: Audi Sandoval MD, PhD CLIA Number: [id number] Blood BLOOD SPECIMEN / Unknown Lab Venipuncture / Unknown 03/07/2023 12:15 PM BELLY DANCER 03/07/2023 12:38 PM BELLY DANCER Tony Johnston MD LAB - CHEMISTRY CHIDI WATERS Performing Organization Address [facility]/ZIP Co de Phone Number [facility] [employer] [facility]) [address] [place] [address] * ALDOLASE (03/07/2023 12:15 PM BELLY DANCER) [facility] Aldolase 6.3 1.2 - 7.6 U/L 03/09/2023 6:53 AM BELLY DANCER [facility] ([facility]) Comment: REFERENCE INTERVAL: Aldolase Access complete set of age- and/or gender-specific reference intervals for this test in the [facility] Laboratory Test Directory (ShareThe). Performed By: [employer] [address] [place] [address] Superintendent House: Audi Sandoval MD, PhD CLIA Number: [id number] Blood BLOOD SPECIMEN / Unknown Lab Venipuncture / Unknown 03/07/2023 12:15 PM BELLY DANCER 03/07/2023 12:38 PM BELLY DANCER Tony Johnston MD LAB - CHEMISTRY CHIDI WATERS Performing Organization Address [facility] Co de Phone Number [facility]) [address] [place] [address] * CYCLIC CITRULLINATED PEPTIDE(CCP) AB IGG (03/07/2023 12:15 PM BELLY DANCER) [facility] CCP Antibody IgG <0.5 <5.0 U/mL 03/07/2023 2:04 PM BELLY DANCER [facility] Blood BLOOD SPECIMEN / Unknown Lab Venipuncture / Unknown 03/07/2023 12:15 PM BELLY DANCER 03/07/2023 12:38 PM BELLY DANCER Tony Johnston MD LAB - CHEMISTRY [facility]I [facility]ERS [address] [address], [facility] [phone] * ERYTHROCYTE SEDIMENTATION RATE (03/07/2023 12:15 PM BELLY DANCER) [facility] Erythrocyte Sedimentation Rate Westergren 18 0 - 30 MM/HR 03/07/2023 1:08 PM [facility] Blood BLOOD SPECIMEN / Unknown Lab Venipuncture / Unknown 03/07/2023 12:15 PM BELLY DANCER 03/07/2023 12:46 PM BELLY DANCER Tony Johnston MD LAB - HEMATOLOGY ORD ERABLES [facility] [address] [place] [address], [facility] [phone] * (ABNORMAL) CBC WITH DIFFERENTIAL (03/07/2023 12:15 PM BELLY DANCER) WBC 7.0 3.5 - 10.5 10 3/uL 03/07/2023 12:50 PM [facility] RBC 4.92 3.80 - 5.20 10 6/uL 03/07/2023 12:50 PM [facility] Hemoglobin 14.3 12.0 - 15.6 g/dL 03/07/2023 12:50 PM [facility] Hematocrit 45.2(H) 35.0 - 45.0 % 03/07/2023 12:50 PM [facility] MCV 91.9 80.7 - 98.3 fL 03/07/2023 12:50 PM [facility] MCH 29.1 26.7 - 34.0 pg 03/07/2023 12:50 PM [facility] MCHC 31.6 30.8 - 35.9 g/dL 03/07/2023 12:50 PM [facility] RDW-SD 46.5 36.0 - 50.0 fL 03/07/2023 12:50 PM [facility] RDW-CV 13.7 11.2 - 14.8 % 03/07/2023 12:50 PM [facility] Platelet Count 324 150 - 400 10 3/uL 03/07/2023 12:50 PM [facility] MPV 9.1(L) 9.4 - 12.9 fL 03/07/2023 12:50 PM [facility] nRBC Absolute 0.00 0 10 3/uL 03/07/2023 12:50 PM [facility] nRBC Auto 0.0 0 /100 WBC 03/07/2023 12:50 PM [facility] Neutrophils % 70.8(H) 35.0 - 70.0 % 03/07/2023 12:50 PM [facility] Lymphocytes % 18.8(L) 20.0 - 43.0 % 03/07/2023 12:50 PM [facility] Monocytes % 8.3 5.0 - 13.0 % 03/07/2023 12:50 PM [facility] Eosinophils % 1.2 0.0 - 6.0 % 03/07/2023 12:50 PM [facility] Basophil % 0.6 0.0 - 2.0 % 03/07/2023 12:50 PM [facility] Neutrophils Absolute 4.92 1.60 - 7.00 10 3/uL 03/07/2023 12:50 PM [facility] Lymphocyte Absolute 1.31 1.10 - 3.90 10 3/uL 03/07/2023 12:50 PM [facility] Monocytes Absolute 0.58 0.26 - 1.07 10 3/uL 03/07/2023 12:50 PM [facility] Eosinophils Absolute 0.08 0.00 - 0.47 10 3/uL 03/07/2023 12:50 PM [facility] Basophils Absolute 0.04 0.00 - 0.08 10 3/uL 03/07/2023 12:50 PM [facility] Immature Granulocytes % 0.3 0.0 - 1.0 % 03/07/2023 12:50 PM [facility] Immature Granulocytes Absolute 0.02 03/07/2023 12:50 PM [facility] Blood BLOOD SPECIMEN / Unknown Lab Venipuncture / Unknown 03/07/2023 12:15 PM BELLY DANCER 03/07/2023 12:46 PM BELLY DANCER Tony Johnston MD LAB - HEMATOLOGY ORD ERABLES [facility] [address] [place] [address], [facility] [phone] * (ABNORMAL) COMPREHENSIVE METABOLIC PANEL (03/07/2023 12:15 PM BELLY DANCER) BUN 13 7 - 26 mg/dL 03/07/2023 1:21 PM [facility] Creatinine 0.80 0.56 - 0.96 mg/dL 03/07/2023 1:21 PM [facility] Sodium 144 136 - 145 mmol/L 03/07/2023 1:21 PM [facility] Potassium 3.6 3.5 - 4.5 mmol/L 03/07/2023 1:21 PM [facility] Chloride 108(H) 98 - 107 mmol/L 03/07/2023 1:21 PM [facility] CO2 27 22 - 29 mmol/L 03/07/2023 1:21 PM [facility] Glucose 91 70 - 115 mg/dL 03/07/2023 1:21 PM [facility] Calcium 9.6 8.4 - 10.2 mg/dL 03/07/2023 1:21 PM [facility] Protein Total 7.0 6.0 - 8.3 g/dL 03/07/2023 1:21 PM [facility] Albumin 3.6 3.4 - 5.0 g/dL 03/07/2023 1:21 PM [facility] Bilirubin Total 0.5 0.2 - 1.2 mg/dL 03/07/2023 1:21 PM [facility] Alkaline Phosphatase 78 40 - 150 U/L 03/07/2023 1:21 PM [facility] ALT 21 5 - 55 U/L 03/07/2023 1:21 PM [facility] AST 18 5 - 34 U/L 03/07/2023 1:21 PM [facility] Anion Gap 9 6 - 16 03/07/2023 1:21 PM [facility] BUN/Creatinine Ratio 16 7 - 23 03/07/2023 1:21 PM [facility] Osmolality Calculated 298(H) 275 - 295 mOsm/kg 03/07/2023 1:21 PM [facility] Albumin/Globulin Ratio 1.1 1.1 - 2.3 03/07/2023 1:21 PM [facility] eGFR by CKD-EPI 86(L) >=90 mL/min/1.7 3 m2 03/07/2023 1:21 PM BELLY DANCER [facility] Blood BLOOD SPECIMEN / Unknown Lab Venipuncture / Unknown 03/07/2023 12:15 PM BELLY DANCER 03/07/2023 12:46 PM BELLY DANCER Tony Johnston MD LAB - CHEMISTRY CHIDI WATERS Performing Organization Address City/[facility]/ZIP Co de Phone Number [address] [address], [place] [phone] * HEPATITIS B CORE ANTIBODY TOTAL (03/07/2023 12:15 PM BELLY DANCER) HBc Antibody Total Non-reacti ve Non-reacti ve 03/07/2023 2:04 PM BELLY DANCER [facility] Blood BLOOD SPECIMEN / Unknown Lab Venipuncture / Unknown 03/07/2023 12:15 PM BELLY DANCER 03/07/2023 12:38 PM BELLY DANCER Tony Johnston MD LAB - CHEMISTRY CHIDI WATERS Performing Organization Address City/[facility]/ZIP Co de Phone Number [address] [address], [place] [phone] * HEPATITIS B SURFACE ANTIGEN W RFLX CONFIRMATION (03/07/2023 12:15 PM BELLY DANCER) Pathologist [facility] Hepatitis B Virus Surface Antigen Non-reacti ve Non-reacti ve 03/07/2023 2:04 PM BELLY DANCER [facility] Blood BLOOD SPECIMEN / Unknown Lab Venipuncture / Unknown 03/07/2023 12:15 PM BELLY DANCER 03/07/2023 12:38 PM BELLY DANCER Tony Johnston MD LAB - CHEMISTRY [facility]IDI WATERS Performing Organization Address City/[facility]/ZIP Co de Phone Number [address] [address], [place] [phone] * CK BLOOD (03/07/2023 12:15 PM BELLY DANCER) CK Total 64 30 - 200 U/L 03/07/2023 1:21 PM BELLY DANCER [facility] Blood BLOOD SPECIMEN / Unknown Lab Venipuncture / Unknown 03/07/2023 12:15 PM BELLY DANCER 03/07/2023 12:46 PM BELLY DANCER Tony Johnston MD LAB - CHEMISTRY [facility]IDI WATERS Performing Organization Address City/[facility]/ZIP Co de Phone Number [address] [address], [place] [phone] * HEPATITIS C ANTIBODY (03/07/2023 12:15 PM BELLY DANCER) [facility] Hepatitis C Antibody Non-react mariam Non-reac tive 03/07/2023 2:04 PM BELLY DANCER [facility] Comment:Hepatitis C Antibody screen indicates no serologic evidence of past or current infection with Hepatitis C Virus. Patients with unexplained liver disease who are immunocompromised or suspected of having acute Hepatitis C infection may benefit from Nucleic Acid Test (LEEANNE) for Hepatitis C Viral RNA to confirm Hepatitis C status. Blood BLOOD SPECIMEN / Unknown Lab Venipuncture / Unknown 03/07/2023 12:15 PM BELLY DANCER 03/07/2023 12:38 PM BELLY DANCER Tony Johnston MD LAB - CHEMISTRY CHIDI WATERS Performing Organization Address [facility]/ZIP Co de Phone Number [address] [address], [place] [phone] * CRYOGLOBULIN QUALITATIVE (03/07/2023 12:13 PM BELLY DANCER) [facility] Cryoglobulin Qualitative Negative Negative 03/11/2023 10:08 AM BELLY DANCER [facility] Blood BLOOD SPECIMEN / Unknown Lab Venipuncture / Unknown 03/07/2023 12:13 PM BELLY DANCER 03/07/2023 12:13 PM BELLY DANCER Tony Johnston MD LAB - CHEMISTRY CHIDI WATERS Performing Organization Address City/[facility]/ZIP Co de Phone Number [address] [address], [place] [phone] * TSH HI LOW REFLEX FREE T4 (12/27/2011 2:51 PM CDT) [facility] TSH 1.05 mIU/L [facility] ([facility]) Comment: Reference Range > or = 20 Years 0.40-4.50 Ranges First trimester 0.26-2.66 Second trimester 0.55-2.73 Third trimester 0.43-2.91 Test Performed at: [facility] [place] [address] [place] [address] ZIYAD HUERTAS DO,MPH 12/27/2011 2:51 PM CDT 12/27/2011 2:52 PM CDT Michaela Ponce MD LAB - CHEMIS TRY ORDERABLES [facility] ([facility]) * CULTURE FUNGUS OTHER+FUNGUS SMEAR (08/16/2011 12:15 PM CDT) Smear SEE NOTE [facility] ([facility]) Comment: CULTURE, FUNGUS W/SMEAR NOT HAIR, SKIN, BLOOD MICRO NUMBER: [id number] TEST STATUS: FINAL SPECIMEN SOURCE: VAGINAL SPECIMEN QUALITY: ADEQUATE SMEAR: No fungal elements seen. RESULT: No fungal growth at 4 Weeks Test Performed at: [facility] [address] [address] ZIYAD HUERTAS DO ENTIRE VAGINA / Unknown 08/16/2011 12:15 PM CDT 08/16/2011 12:15 PM CDT Kristine Smith MD LAB - MICROBIOLOGY ORDERABLES [facility] ([facility]) * PH FLUID - POCT (AMB) [facility] (04/29/1998 12:00 AM BELLY DANCER) pH Vaginal 4.5 [facility] Vaginal swab (specimen) 04/29/1998 Kristine Smith MD LAB - POINT OF CAR E ORDERABLES [facility] * WET PREP - POINT OF CARE (AMB) [facility] (04/29/1998 12:00 AM BELLY DANCER) pH Wet Prep 4.5 [facility] Yeast Wet Prep neg [facility] Trichomonas Wet Prep neg [facility] Bacteria Wet Prep neg [facility] Whiff Test neg [facility] Vaginal swab (specimen) 04/29/1998 Kristine Smith MD LAB - POINT OF CAR E ORDERABLES [facility] * FUNGUS GOGO - POINT OF CARE (AMB) [facility] (04/29/1998 12:00 AM BELLY DANCER) GOGO Prep neg [facility] Vaginal swab (specimen) 04/29/1998 Kristine Smith MD LAB - POINT OF CAR E ORDERABLES [facility] Care Teams Flash Developer Relationship Specialty Start Date End Date Aisha Heller PA [address] [place] [id number] PCP - General 08/07/22
--- OUTSIDE RECORDS SUMMARY | 2024-07-10 14:11 | XMS_ITS | Clinical Summary ---
Author Organization [facility] Address [address] [place] [address] Care Team Providers Care Supervisor Benzene Refining Name Role Phone Adan Mitchell MD Unavailable Unavailable Aisha Heller PA-C Primary Care Provider [phone] Allergies Active Allergy Reactions Criticality Noted Date Comments Omeprazole Palpitations,Other ( see comment) Low 02/06/2021 Chest tightness Penicillins Unknown 02/06/2021 Potassium Unknown 06/05/2021 Medications buPROPion SR 150 MG 12 hr tablet Take 150 mg by mouth 2 (two) times a day. 02/06/20 21 Active famotidine 20 MG tablet Take 20 mg by mouth 2 (two) times daily. 01/10/20 21 Active zolpidem 10 MG tablet Take 10 mg by mouth nightly at bedtime. 01/30/20 21 Active topiramate 25 MG tablet Take 25 mg by mouth see administration instructions. 1 tab bid x 1 week then 1 tab AM 2 tabs PM x 1 week then 2 tabs bid 01/10/20 21 Active tamsulosin 0.4 MG Cap Take 1 capsule (0.4 mg total) by mouth daily. 30 capsule 02/07/20 21 Active rizatriptan 10 MG tablet Take 1 tablet by mouth every 2 (two) hours as needed for Migraine. 01/19/20 21 Active Pseudoephedrine-Ac etaminophen (SINUTAB SINUS OR) Take 1 tablet by mouth every 6 (six) hours as needed (sinus headache). Active ondansetron (ZOFRAN-ODT) 4 MG disintegrating tablet Take 1 tablet (4 mg total) by mouth every 8 (eight) hours as needed for Nausea. 20 tablet 06/18/19 24 Active Active Problems Problem Noted Date Diagnosed Date Kidney stone 02/07/2021 GERD (gastroesophageal reflux disease) 6 Multiple pulmonary nodules 12/26/2015 Chest pain 12/13/2015 Resolved Problems Problem Noted Date Diagnosed Date Resolved Date Encounter for preventive health examination 12/09/2015 02/13/2021 Family History Medical History Relation Comments Cancer Father Heart Disease Father Cancer Mother Cancer Sister Relation Status Comments Father Other leg arterial lui nosis, CABG Mother Other Sister Other breast Social History Tobacco Use Types Packs/Day Years Used Date Smoking Tobacco: Never Smokeless Tobacco: Never Tobacco Cessation:Counseling Given: Not Answered Alcohol Use Standard Drinks/Week Comments Yes 0 (1 standard drink = 0.6 oz pur e alcohol) rarely Comments No Sex and Gender Information Value Date Recorded Sex Assigned at Not on file Legal Sex Female 11:09 AM CDT Gender Identity Not on file Sexual Orientation Not on file Last Filed Vital Signs Vital Sign Reading Time Taken Comments Blood Pressure 114/68 06/18/2023 8:21 PM PRECINCT I POLICE SERGEANT Pulse 88 06/18/2023 8:21 PM [employer] SERGEANT Temperature 36.7 C (98 F) 06/18/2023 8:21 PM PRECIN[employer] I POLICE SERGEANT Respiratory Rate 18 06/18/2023 8:21 PM PRECIN[employer] I POLICE SERGEANT Oxygen Saturation 98% 06/18/2023 8:21 PM PRECINCT I POLICE SERGEANT Inhaled Oxygen Concentration - - Weight 86.2 kg (190 lb) 06/18/2023 6:16 PM PRECINCT I POLICE SERGEANT Height 170.2 cm (5' 7 ) 06/18/2023 6:16 PM PRECINCT I POLICE SERGEANT Body Mass Index 29.76 06/18/2023 6:16 PM PRECINCT I POLICE SERGEANT Plan of Treatment Health Maintenance Due Date Last Done Comments Cervical Cancer Screening Pa p Smear (Age 30 to 64) Every 3 Years 1966 Colorectal Cancer Screening Colonoscopy (10 Years) 1966 Annual Physical 1969 Hepatitis C 1984 DTaP, Tdap and Td Vaccines ( 1 - Tdap) 1985 Hepatitis B Vaccines (1 of 3 - 19+ 3-dose series) 1985 Cervical Cancer Screening Pa p with HPV Testing (Age 30 to 64) Every 5 Years 1996 Cervical Cancer Screening wi th HPV 1996 Mammogram Screening 2006 Zoster Vaccines (1 of 2) 2016 COVID-19 Vaccine (2023-2 5 season) 2023 09/08/2020, 08/11/2020 Influenza Adult (#1) 2024 Meningococcal B Vaccine Aged Out No l onger eligible based on patient's age to complete this topic Meningococcal Vaccine Aged Out No altagracia zahida eligible based on patient's age to complete this topic Pneumococcal Vaccine: Pediatrics (0 to 5 Years) and At-Risk Patients (6 to 64 Years) Aged Out No longer eligible b ased on patient's age to complete this topic RSV Immunizations Under 20 Months Aged Out No longer eligible b ased on patient's age to complete this topic Goals Goal Patient Goal Type Associated Problems Recent Progress Patient-Stated? Author Health - patient able to perform ADLs independently General No Polly Maloney, RN Medical Devices Implanted Type Area Ruling Machine Set Up Operator Device Identifier Shelf Expiration Date Model / Serial / Lot Stent Ureteral Wyola Sci Contour Vl 4.8fr X 22-30cm - [id number] Implanted:Qty : 1 on 02/08/2021 by Philipp Valdez MD at [facility] Stent Left: Ureter [employer] [id number] 06/24/2023 [id number] 50 / / [id number] [address] [facility] Advance Directives * Full Code (Latest Code Status on File) Date Activated Date Inactivated Comments 02/08/2021 9:25 AM 02/09/2021 3:49 PM Care Teams Supervisor Benzene Refining Relationship Specialty Start Date End Date Aisha Heller PA-C [address] [place], [place] [id number] [place] [address] PCP - General PHYSICIAN SLIMER 06/20/22 Adan Mitchell MD CARDIOVASCULAR DISEASE 09/28/15
--- OUTSIDE RECORDS SUMMARY | 2024-07-10 14:11 | XMS_ITS | Clinical Summary ---
Author Organization [facility] [employer] Address [address] [place] [address] Care Team Providers Care Rn Home Health Name Role Phone Aisha Heller Primary Care Provider [phone] Source Comments [facility] [employer],non-owned Affiliates and Associated Physician Practices is amultiple site organization consisting of ambulatory clinics and hospital sitesin [place], [place], [place] and [place]. This disclosure is being madepursuant to the Care Everywhere program and may not contain all information available regarding this patient. Last updated 18.[facility] [employer] Allergies Active Allergy Reactions Criticality Noted Date Comments Omeprazole GI Discomfort 03/07/2023 Penicillins Swelling 03/07/2023 Medications * Be aware that medications may not be up to date on this document. Alwaysverify current medications with the patient. Medication Sig Dispensed Refills Start Date End Date Status zolpidem (Ambien) 5 MG tablet 03/06/2023 Active Ubrelvy 100 MG tablet 02/12/2023 Act mariam famotidine (Pepcid) 20 MG tablet Take 1 (one) tablet by mouth 2 times daily 02/19/2023 Active cyanocobalamin (Vitamin B-12) 100 MCG tablet Take 1 (one) tablet by mouth once daily Active cetirizine (ZyrTEC) 10 MG chew tablet Take 1 (one) tablet by mouth once daily Active magnesium gluconate 500 (27 Mg) MG tablet Take 1 (one) tablet by mouth once daily Active vitamin D, ergocalciferol, (Drisdol) 1.25 MG (47859 UT) capsule Take 1 (one) capsule by mouth every 7 days 03/08/2023 Active Social History Tobacco Use Types Packs/Day Years [...] Comments Blood Pressure 134/84 04/15/2023 2:24 PM PELLET POST INSPECTOR Pulse 70 04/15/2023 2:24 PM PELLET POST INSPECTOR Temperature 36.4 C (97.5 F) 04/15/2023 2:24 PM PELLET POST INSPECTOR Respiratory Rate - - Oxygen Saturation 70% 04/15/2023 2:24 PM PELLET POST INSPECTOR Inhaled Oxygen Concentration - - Weight 87.5 kg (193 lb) 04/15/2023 2:24 PM PELLET POST INSPECTOR Height 167.6 cm (5' 5.98 ) 04/15/2023 2:24 PM CS T Body Mass Index 31.17 04/15/2023 2:24 PM PELLET POST INSPECTOR Plan of Treatment Health Maintenance Due Date Last Done Comments COLOGUARD (AGES 45-75) - COL ON CA SCREENING 1966 COLON MONITORING 1966 COLONOSCOPY - COLON CA SCREENING 1966 CT COLONOGRAPHY - COLON CA SCREENING 1966 Colorectal Cancer Screening 1966 FIT - COLON CA SCREENING 1966 FLEX SIG - COLON CA SCREENING 1966 LIPID TESTING 1966 MAMMOGRAM 1966 PAP SMEAR 1966 HIV SCREENING 1981 DTAP/TDAP/TD VACCINES (1 - Tdap) 1985 HEPATITIS B VACCINE (1 of 3 - 19+ 3-dose series) 1985 PNEUMOCOCCAL VACCINE 50+ (1 of 1 - PCV) 2016 ZOSTER VACCINE (1 of 2) 2016 COVID-19 VACCINE (2023-2 5 season) 2023 INFLUENZA VACCINE (#1) 2023 DEPRESSION SCREENING 04/29/2024 03/07/2023 SCREENING FOR DIABETES 03/07/2026 03/07/2023 HEPATITIS C SCREENING Completed 03/07/2023 HIB VACCINE Aged Out No longer eligi ble based on patient's age to complete this topic HPV VACCINE Aged Out No longer eligi ble based on patient's age to complete this topic MENINGOCOCCAL (Group B) VACC INE SHARED DECISION-MAKING Aged Out No longer eligibl e based on patient's age to complete this topic MENINGOCOCCAL GROUPS A/C/Y/W VACCINE Aged Out No longer eligible b ased on patient's age to complete this topic PNEUMOCOCCAL VACCINE Aged Out No long er eligible based on patient's age to complete this topic Procedures Procedure Name Priority Date/Time Associated Diagnosis Comments COMPREHENSIVE METABOLIC PANEL Routine 03/07/2023 12:15 PM PELLET POST INSPECTOR Raynaud's disease without gangrene HEPATITIS C ANTIBODY Routine 03/07/2023 12:15 PM PELLET POST INSPECTOR Raynaud's disease without gangrene Need for hepatitis C screening test from Last 3 Months or Most Recently Relevant to Health Maintenance Results * (ABNORMAL) COMPREHENSIVE METABOLIC PANEL (03/07/2023 12:15 PM PELLET POST INSPECTOR) BUN 13 7 - 26 mg/dL 03/07/2023 1:21 PM [facility] Creatinine 0.80 0.56 - 0.96 mg/dL 03/07/2023 1:21 PM [facility] Sodium 144 136 - 145 mmol/L 03/07/2023 1:21 PM [facility] Potassium 3.6 3.5 - 4.5 mmol/L 03/07/2023 1:21 PM [facility] Chloride 108(H) 98 - 107 mmol/L 03/07/2023 1:21 PM [facility] CO2 27 22 - 29 mmol/L 03/07/2023 1:21 PM [facility] Glucose 91 70 - 115 mg/dL 03/07/2023 1:21 PM [facility] Calcium 9.6 8.4 - 10.2 mg/dL 03/07/2023 1:21 PM [facility] Protein Total 7.0 6.0 - 8.3 g/dL 03/07/2023 1:21 PM [facility] Albumin 3.6 3.4 - 5.0 g/dL 03/07/2023 1:21 PM [facility] Bilirubin Total 0.5 0.2 - 1.2 mg/dL 03/07/2023 1:21 PM [facility] Alkaline Phosphatase 78 40 - 150 U/L 03/07/2023 1:21 PM [facility] ALT 21 5 - 55 U/L 03/07/2023 1:21 PM [facility] AST 18 5 - 34 U/L 03/07/2023 1:21 PM [facility] Anion Gap 9 6 - 16 03/07/2023 1:21 PM [facility] BUN/Creatinine Ratio 16 7 - 23 03/07/2023 1:21 PM [facility] Osmolality Calculated 298(H) 275 - 295 mOsm/kg 03/07/2023 1:21 PM [facility] Albumin/Globulin Ratio 1.1 1.1 - 2.3 03/07/2023 1:21 PM [facility] eGFR by CKD-EPI 86(L) >=90 mL/min/1.7 3 m2 03/07/2023 1:21 PM [facility] Blood BLOOD SPECIMEN / Unknown Lab Venipuncture / Unknown 03/07/2023 12:15 PM PELLET POST INSPECTOR 03/07/2023 12:46 PM [facility] Tony Johnston MD LAB - CHEMISTRY CHIDI WATERS [facility] Organization Address City/State/ZIP Co de Phone Number [facility] [address] [place] [address] [phone] * HEPATITIS C ANTIBODY (03/07/2023 12:15 PM [facility]) Hepatitis C Antibody Non-react mariam Non-reac tive 03/07/2023 2:04 PM [facility] Comment:Hepatitis C Antibody screen indicates no serologic evidence of past or current infection with Hepatitis C Virus. Patients with unexplained liver disease who are immunocompromised or suspected of having acute Hepatitis C infection may benefit from Nucleic Acid Test (LEEANNE) for Hepatitis C Viral RNA to confirm Hepatitis C status. Blood BLOOD SPECIMEN / Unknown Lab Venipuncture / Unknown 03/07/2023 12:15 PM PELLET POST INSPECTOR 03/07/2023 12:38 PM PELLET POST INSPECTOR Tony Johnston MD LAB - CHEMISTRY CHIDI WATERS [facility] Organization Address City/State/[facility] Co de Phone Number [facility] [address] [place] [id number], [facility] [phone] from Last 3 Months or Most Recently Relevant to Health Maintenance Care Teams Rn Home Health Relationship Specialty Start Date End Date Aisha Heller PA [address] [place] [id number] PCP - General 08/07/22
--- OUTSIDE RECORDS SUMMARY | 2024-07-10 14:11 | XMS_ITS | Referral Summary ---
Author Organization [facility] [employer] Address [address] [place] [address] Care Team Providers Care Director Clinical Pharmacology Name Role Phone Aisha Heller Primary Care Provider [phone] Source Comments [facility],non-owned Affiliates and Associated Physician Practices is amultiple site organization consisting of ambulatory clinics and hospital sitesin [place], [place], [place] and [place]. This disclosure is being madepursuant to the Care Everywhere program and may not contain all information available regarding this patient. Last updated 18.[facility] Allergies Active Allergy Reactions Criticality Noted Date [...] Active vitamin D, ergocalciferol, (Drisdol) 1.25 MG (85310 UT) capsule Take 1 (one) capsule by [...] Comments Blood Pressure 134/84 04/15/2023 2:24 PM BLOOD BANK SUPERVISOR Pulse 70 04/15/2023 2:24 PM BLOOD BANK SUPERVISOR Temperature 36.4 C (97.5 F) 04/15/2023 2:24 PM BLOOD BANK SUPERVISOR Respiratory Rate - - Oxygen Saturation 70% 04/15/2023 2:24 PM BLOOD BANK SUPERVISOR Inhaled Oxygen Concentration - - Weight 87.5 kg (193 lb) 04/15/2023 2:24 PM BLOOD BANK SUPERVISOR Height 167.6 cm (5' 5.98 ) 04/15/2023 2:24 PM CS T Body Mass Index 31.17 04/15/2023 2:24 PM BLOOD BANK SUPERVISOR Plan of Treatment Not on file Procedures Procedure Name Priority Date/Time Associated Diagnosis Comments COMPREHENSIVE METABOLIC PANEL Routine 03/07/2023 12:15 PM BLOOD BANK SUPERVISOR Raynaud's disease without gangrene HEPATITIS C ANTIBODY Routine 03/07/2023 12:15 PM BLOOD BANK SUPERVISOR Raynaud's disease without gangrene Need for hepatitis C screening test from Last 3 Months or Most Recently Relevant to Health Maintenance Results * (ABNORMAL) COMPREHENSIVE METABOLIC PANEL (03/07/2023 12:15 PM BLOOD BANK SUPERVISOR) BUN 13 7 - 26 mg/dL 03/07/2023 1:21 PM [facility] Creatinine 0.80 0.56 - 0.96 mg/dL 03/07/2023 1:21 PM [facility] Sodium 144 136 - 145 mmol/L 03/07/2023 1:21 PM [facility] Potassium 3.6 3.5 - 4.5 mmol/L 03/07/2023 1:21 PM [facility] Chloride 108(H) 98 - 107 mmol/L 03/07/2023 1:21 PM [facility] CO2 27 22 - 29 mmol/L 03/07/2023 1:21 PM [facility] Glucose 91 70 - 115 mg/dL 03/07/2023 1:21 PM [facility] Calcium 9.6 8.4 - 10.2 mg/dL 03/07/2023 1:21 PM [facility] Protein Total 7.0 6.0 - 8.3 g/dL 03/07/2023 1:21 PM [facility] Albumin 3.6 3.4 - 5.0 g/dL 03/07/2023 1:21 PM [facility] Bilirubin Total 0.5 0.2 - 1.2 mg/dL 03/07/2023 1:21 PM [facility] Alkaline Phosphatase 78 40 - 150 U/L 03/07/2023 1:21 PM [facility] ALT 21 5 - 55 U/L 03/07/2023 1:21 PM [facility] AST 18 5 - 34 U/L 03/07/2023 1:21 PM [facility] Anion Gap 9 6 - 16 03/07/2023 1:21 PM [facility] BUN/Creatinine Ratio 16 7 - 23 03/07/2023 1:21 PM [facility] Osmolality Calculated 298(H) 275 - 295 mOsm/kg 03/07/2023 1:21 PM [facility] Albumin/Globulin Ratio 1.1 1.1 - 2.3 03/07/2023 1:21 PM [facility] eGFR by CKD-EPI 86(L) >=90 mL/min/1.7 3 m2 03/07/2023 1:21 PM [facility] Blood BLOOD SPECIMEN / Unknown Lab Venipuncture / Unknown 03/07/2023 12:15 PM BLOOD BANK SUPERVISOR 03/07/2023 12:46 PM [facility] Tony Johnston MD LAB - CHEMISTRY CHIDI WATERS [facility] [address] [place] [address], [place] [phone] * HEPATITIS C ANTIBODY (03/07/2023 12:15 PM BLOOD BANK SUPERVISOR) Hepatitis C Antibody Non-react mariam Non-reac tive 03/07/2023 2:04 PM BLOOD BANK SUPERVISOR [facility] Comment:Hepatitis C Antibody screen indicates no serologic evidence of past or current infection with Hepatitis C Virus. Patients with unexplained liver disease who are immunocompromised or suspected of having acute Hepatitis C infection may benefit from Nucleic Acid Test (LEEANNE) for Hepatitis C Viral RNA to confirm Hepatitis C status. Blood BLOOD SPECIMEN / Unknown Lab Venipuncture / Unknown 03/07/2023 12:15 PM BLOOD BANK SUPERVISOR 03/07/2023 12:38 PM BLOOD BANK SUPERVISOR Tony Johnston MD LAB - CHEMISTRY CHIDI WATERS Performing Organization Address City/[facility]/ZIP Co de Phone Number [facility] [address] [place] [address], [facility] [place] [phone] from Last 3 Months or Most Recently Relevant to Health Maintenance Care Teams Director Clinical Pharmacology Relationship Specialty Start Date End Date Aisha Heller PA [address] [place] [id number] PCP - General 08/07/22
== END 2024-07-10 14:09 | disposition home or self-care (01) ==
PROVIDERS: PCP Nurse Practitioner Family; Visit Provider Urology
DX: N13.2 Hydronephrosis with renal and ureteral calculous obstruction (principal)
CPT/HCPCS: 74176

== ENCOUNTER 2024-07-16 01:27 | Day surgery (SDC) | payer BC, SELFPAY ==
--- NOTE | 2024-07-14 16:22 | SUR.PREOP ---
Report to the Outpatient Waiting Room, entrance under the green pavilion located off [facility], at time 0930 on date 07/16/24. Planned Procedure Time: 1130. Time changes happen often and if your time is changed the preop area will call you the afternoon before. - You and your visitor will be asked to self-screen and do not enter if you have any COVID symptoms. Please call surgeon if you need to reschedule. - A mask is optional within the hospital at this time. Patients may have clear liquids (water, carbonated beverages, clear teas, apple juice) until 3 hours prior to surgery with a maximum of 20 ounces. - No food from midnight until time of surgery and no smoking, or chewing tobacco (or any form of nicotine). No chewing gum, candy or mints. - Infants may have breast milk until 4 hours before surgery, infant formula 6 hours prior to surgery. - Children will be allowed to drink immediately following surgery.? If applicable, please bring a bottle or sippy cup to assist with drinking. Juice, water, soda, and popsicles are readily available.? For infants on formula, please bring formula the day of surgery.? Pacifiers are allowed. Take only the following medications with a SIP of water on the morning of surgery: ____NA DO NOT STOP ANY OF YOUR OTHER PRESCRIPTION MEDICATIONS PRIOR TO SURGERY EXCEPT THE FOLLOWING Hold all vitamins and supplements for 3 days per anesthesiologist. Medications to discontinue per physician NA Date to take last dose Please no make-up, nail yoruba, hairspray, perfume, deodorant, or body powder the day of surgery.? No jewelry (including any body piercings) or valuables the day of surgery, leave them at home.? Please take a shower or bath the night before, or the morning of, surgery with an antibacterial soap.? Wear comfortable, loose fitting clothing.? Children are encouraged to wear pajamas. - Jewelry must be removed prior to entering the operating room.? Rings and piercings that are not removed may be cut off. - The hospital will not accept responsibility for valuables.? - Please leave all valuables, including medications, at home the day of surgery. If you are going home after surgery, a licensed cpr ambulance driver must drive you home.? - NO public transportation without another adult if you receive anesthesia. - We recommend that an adult stay with you for 24 hours following discharge. - We also recommend that you do not drive, make important decision, drink alcoholic beverages, or take any drugs that were not prescribed by your health care provider for at least 24 hours after your discharge time. For Pediatric surgeries, we recommend two adults accompany the child home. Follow any additional instructions given to you from your surgeon. Telephone instructions given to __PATIENT__and asked if any additional questions and then verbalized understanding. Patient advised to call surgeon office or pre surgery nurse liaison [phone] if any additional questions.
[2024-07-14 16:26] VITALS: BMI 27.7
--- NOTE | 2024-07-15 13:01 | P.HP_ITS ---
History of Present Illness History of Present Illness Consent: Risks, benefits, and alternatives have been discussed and questions answered. Patient agrees to proceed with procedure. Chief complaint: right ureteral stone Narrative: Ayana Marinelli is a 58 year old female With a history of recurrent urolithiasis who has had intermittent moderate to severe right flank pain over the past week. outside imaging reveals a partially obstructing 3 mm right proximal ureteral stone. Because of intractable pain and she elects for ureteroscopy with stone extraction, possible laser lithotripsy retrograde pyelography and stent placement. She has had no fever chills or gross hematuria. Review of Systems Review of Systems: All systems reviewed & are unremarkable except as noted in HPI and below PMFSH Past Medical History Medical History Kidney stones Anxiety Pulmonary nodule Primary insomnia GERD (gastroesophageal reflux disease) Insomnia Raynaud's disease Hx of migraines Anxiety Surgical History Surgical History H/O esophagogastroduodenoscopy Hx of appendectomy 1980 History of tonsillectomy 03/2007 Hx of tubal ligation 09/2001 H/O lithotripsy 2014,2020,2021 Hx of cystoscopy Family History Family History Other Family history of coronary artery disease Social History Social History (Updated 06/02/24 @ 16:22 by Pavel Yadav) Social History: 06/02/24 Patient declined SDOH Smoking status: Never smoker Alcohol intake: current Drinks per week: 2 Substance use: never Substance use type: does not use Do You Feel Safe in your Home?: Yes Lack of Transportation: No Lack of Food: Never True Current Housing: I Have Housing Concerned About Future Housing: No Difficulty Paying Gas/Electric Bills: No Difficulty Paying for Meds: No Currently Unemployed: No Education: Trade/Vocational Certificate Difficulty w/ Childcare or Family Care: No Living arrangements: with family Additional living arrangements comments: DAUGHTER Occupation/Education: occupation Gender identity (if verbalized by the patient): Female Sexual Orientation (if Verbalized by the Patient): Straight or Heterosexual Spiritual care concerns: No Meds Home Medications and Allergies Home Medications ?Medication ?Instructions ?Recorded ?Confirmed ?Type ubrogepant 100 mg tablet (Ubrelvy) 100 mg PO ONCE 12/07/22 07/14/24 History zolpidem 5 mg tablet (Ambien) 5 mg PO HS PRN Insomnia #90 tabs 01/28/24 07/14/24 Rx galcanezumab-gnlm 120 mg/mL 120 mg subcut MONTHLY 04/08/24 07/14/24 History subcutaneous pen injector (Emgality Pen) famotidine 20 mg tablet 20 mg PO HS 07/14/24 07/14/24 History Allergies Allergy/AdvReac Type Severity Reaction Status Date / Time omeprazole Allergy Severe Chest Pain Verified 07/14/24 16:19 Penicillins Allergy Unknown Unknown Verified 07/14/24 16:19 Exam Const: General: no acute distress Resp: Effort & Inspection: normal respiratory effort GI: Inspection: non-distended GI Palp: No abdominal tenderness and No Guarding due to palpation present (GI) Auscultation: normal bowel sounds Assessment and Plan Assessment and plan (1) Right ureteral stone: Code(s): N20.1 - Calculus of ureter Status: Acute Assessment and Plan: * Cystoscopy, right ureteroscopy with stone extraction, possible laser lithotripsy, retrograde pyelogram and stent placement
[2024-07-16] VITALS (9 sets, daily range): BP systolic 118–141; BP diastolic 68–85; PULSE 59–77; RESP 10–24; TEMP 36.6; O2SAT 98–100
--- NOTE | ~2024-07-16 | CT_ITS ---
CT abdomen pelvis wo con Ordering provider: Philipp Valdez MD History: 58 years Female with . LT URETERAL STONES . Comparison: July 10, 2024 Technique: CT abdomen and pelvis with IV and without oral contrast. Automated exposure control and it erative reconstruction technique were employed. The dose-length product was 330.83 mGy-cm. Findings: VISUALIZED LOWER CHEST: Normal. UPPER ABDOMINAL ORGANS: Liver: Normal. Gallbladder: Cholelithiasis. Spleen: Normal. Stomach/duodenum: Normal. Pancreas: Normal. Adrenals: Normal. Kidneys: Hypodensity in the left kidney upper pole measuring 1.5 cm. Multiple stones in the left kidn ey upper, mid and lower poles with the largest measuring 5 mm. Stones seen in the right kidney upper mid and lower poles. Right hydronephrotic changes with a lower ureteric stone measuring 5 mm. PELVIC ORGANS: The bladder is underfilled. BOWEL AND MESENTERY: Colon: No evidence of diverticulitis. Fecal material is loaded in the colon. Appendix is not demonstr ated. Small Bowel: Normal. No obstruction. Peritoneum/mesentery: No free air or free fluid. No mesenteric lymphadenopathy. RETROPERITONEUM: Mild atheromatous disease of the abdominal aorta. No retroperitoneal lymphadenopat hy. MUSCULOSKELETAL: Superficial soft tissues: Small fat-containing umbilical hernia. The superficial soft tissues are nor mal. Bones: Normal spine. IMPRESSION: 1. No evidence of appendicitis, diverticulitis or intestinal obstruction. 2. Stone in the right lower ureter with right hydronephrotic changes. 3. Bilateral kidney stones. 4. Cholelithiasis. Reviewed, dictated and finalized at location A.
--- NOTE | ~2024-07-16 | XR_ITS ---
EXAMINATION: XR retrograde pyelo w/stent RT DATE: 07/16/2024 12:31 INDICATION: Right-sided urolithiasis. TECHNIQUE: 5 fluoroscopic images of the abdomen and pelvis were obtained during procedure performed corey Reinoso. Radiologist was not present for the imaging or procedure. The amount of fluoroscopy time used during this procedure was 0.3 minutes. COMPARISON: None. FINDINGS: The stones previously seen in the right ureter and in the bilateral kidneys are unable to be identifi ed on the provided fluoroscopic images which may be due to either small size or lower density. IMPRESSION: 1. Fluoroscopy utilized during urologic procedure with the previously identified bilateral renal and right ureteral stone is unable to be distinguished on the provided fluoroscopic images. See procedure note for further detail. Reviewed, dictated and finalized at location A. IMPRESSION: 1. Fluoroscopy utilized during urologic procedure with the previously identifie d bilateral renal and right ureteral stone is unable to be distinguished on the provided fluoroscopic images. See procedure note for further detail.
--- OUTSIDE RECORDS SUMMARY | 2024-07-16 01:31 | XMS_ITS | Clinical Summary ---
Author Organization [facility] Address [address] [place] [address] Care Team Providers Care Showroom Sales Consultant Name Role Phone Aisha Heller Primary Care Provider [phone] Source Comments [facility],non-owned Affiliates and Associated Physician Practices is amultiple site organization consisting of ambulatory clinics and hospital sitesin [place], [place], [place] and [place]. This disclosure is being madepursuant to the Care Everywhere program and may not contain all information available regarding this patient. Last updated 18.[facility] Allergies Active Allergy Reactions Criticality Noted Date [...] Active vitamin D, ergocalciferol, (Drisdol) 1.25 MG (22380 UT) capsule Take 1 (one) capsule by [...] Comments Blood Pressure 134/84 04/15/2023 2:24 PM [employer] Pulse 70 04/15/2023 2:24 PM [employer] Temperature 36.4 C (97.5 F) 04/15/2023 2:24 PM [employer] Respiratory Rate - - Oxygen Saturation 70% 04/15/2023 2:24 PM [employer] Inhaled Oxygen Concentration - - Weight 87.5 kg (193 lb) 04/15/2023 2:24 PM [employer] Height 167.6 cm (5' 5.98 ) 04/15/2023 2:24 PM CS T Body Mass Index 31.17 04/15/2023 2:24 PM [employer] Plan of Treatment Health Maintenance Due Date [...] COMPREHENSIVE METABOLIC PANEL Routine 03/07/2023 12:15 PM [employer] Raynaud's disease without gangrene HEPATITIS C ANTIBODY Routine 03/07/2023 12:15 PM [employer] Raynaud's disease without gangrene Need for hepatitis C screening test from Last 3 Months or Most Recently Relevant to Health Maintenance Results * (ABNORMAL) COMPREHENSIVE METABOLIC PANEL (03/07/2023 12:15 PM [employer]) BUN 13 7 - 26 mg/dL 03/07/2023 1:21 PM [facility] Creatinine 0.80 0.56 - 0.96 mg/dL 03/07/2023 1:21 PM [facility] Sodium 144 136 - 145 mmol/L 03/07/2023 1:21 PM [facility] Potassium 3.6 3.5 - 4.5 mmol/L 03/07/2023 1:21 PM [facility] Chloride 108(H) 98 - 107 mmol/L 03/07/2023 1:21 PM [facility] CO2 27 22 - 29 mmol/L 03/07/2023 1:21 PM [facility] Glucose 91 70 - 115 mg/dL 03/07/2023 1:21 PM [facility] Calcium 9.6 8.4 - 10.2 mg/dL 03/07/2023 1:21 PM [facility] Protein Total 7.0 6.0 - 8.3 g/dL 03/07/2023 1:21 PM [facility] Albumin 3.6 3.4 - 5.0 g/dL 03/07/2023 1:21 PM [facility] Bilirubin Total 0.5 0.2 - 1.2 mg/dL 03/07/2023 1:21 PM [facility] Alkaline Phosphatase 78 40 - 150 U/L 03/07/2023 1:21 PM [facility] ALT 21 5 - 55 U/L 03/07/2023 1:21 PM [facility] AST 18 5 - 34 U/L 03/07/2023 1:21 PM [facility] Anion Gap 9 6 - 16 03/07/2023 1:21 PM [facility] BUN/Creatinine Ratio 16 7 - 23 03/07/2023 1:21 PM [facility] Osmolality Calculated 298(H) 275 - 295 mOsm/kg 03/07/2023 1:21 PM [facility] Albumin/Globulin Ratio 1.1 1.1 - 2.3 03/07/2023 1:21 PM [facility] eGFR by CKD-EPI 86(L) >=90 mL/min/1.7 3 m2 03/07/2023 1:21 PM [facility] Blood BLOOD SPECIMEN / Unknown Lab Venipuncture / Unknown 03/07/2023 12:15 PM [employer] 03/07/2023 12:46 PM [facility] Tony Johnston MD LAB - CHEMISTRY CHIDI WAT[facility] Organization Address City/State/ZIP Co de Phone Number [facility] [address] [place] [address] [phone] * HEPATITIS C ANTIBODY (03/07/2023 12:15 PM [facility]) Hepatitis C Antibody Non-react mariam Non-reac tive 03/07/2023 2:04 PM [facility] Comment:Hepatitis C Antibody screen indicates no serologic evidence of past or current infection with Hepatitis C Virus. Patients with unexplained liver disease who are immunocompromised or suspected of having acute Hepatitis C infection may benefit from Nucleic Acid Test (LEEANNE) for Hepatitis C Viral RNA to confirm Hepatitis C status. Blood BLOOD SPECIMEN / Unknown Lab Venipuncture / Unknown 03/07/2023 12:15 PM [employer] 03/07/2023 12:38 PM [employer] Tony Johnston MD LAB - CHEMISTRY CHIDI WATERS [facility] Organization Address City/State/[facility] Co de Phone Number [facility] [address] [place] [id number], [facility] [phone] from Last 3 Months or Most Recently Relevant to Health Maintenance Care Teams Showroom Sales Consultant Relationship Specialty Start Date End Date Aisha Heller PA [address] [place] [id number] PCP - General 08/07/22
--- OUTSIDE RECORDS SUMMARY | 2024-07-16 01:31 | XMS_ITS | Continuity of Care Document ---
Author Organization [facility] Address [address] [place] [address] Phone Care Team Providers Care Instrument Tech Name Role Phone Emilie Castillo Unavailable Unavailable [...] Diagnoses Date Provider Providers Copied on Encounter [facility], [address], [place], [place], [id number] , tel: [phone] [facility] No Information 0 9 Laura Phan. [address] [facility], [address], [place], [place], [address], . tel: [phone] [facility], [address], [place], [place], [address] , tel: [phone] Conversion Department No Information 0 1 Conversion Doctor. [facility] [place], [address], [place]. [facility], [address], [place], [place], [id number] , tel: [phone] [facility] JOINT PAIN-ANKLE 0 Conversion Doctor. [facility] [place], [address], [place]. [facility], [address], [place], [place], [address] , tel: [phone] [facility] COUGH 0 Conversion Doctor. [address] [place] [address], [address], [place]. [facility], [address], [place], [place], [address] , tel: [phone] [facility] INSOMNIA NOS Jun-0 9 Conversion Doctor. [address] [place] [address], [address], [place]. [facility], [address], [place], [place], [address] , tel: [phone] [facility] CHEST PAIN NOSLONG-TERM USE MEDS NECSCREEN LIPOID DISORDERSMALAISE AND FATIGUE NEC Nov- 0-200 8 Tony Baeza. [address] [facility], [address], [place], [place], [address], [place]. tel: [phone] [facility], [address], [place], [place], [address] , tel: [phone] [facility] OTALGIA NOSALOPECIA NOSANXIETY STATE NOSURIN TRACT INFECTION NOS Feb- 0200 8 Laura Phan. [address] [facility], [address], [place], [place], [address], [place]. tel: [phone] [facility], [address], [place], [place], [address] , tel: [phone] [facility] ACUTE URI NOS 7 Conversion Doctor. [facility] [place], [address], . [facility], [address], [place], [place], [address] , tel: [phone] [facility] ACUTE SINUSITIS NOS 7 Laura Phan. [address] , [address], [place], [place], [address], [place]. tel:[phone] [facility], [address], [place], [place], [address] , tel: [phone] [facility] ALLERGIC RHINITIS NOS 7 Conversion Doctor. [facility] [facility], [place], [address], . Family History Family Member Type Diagnosis Age At Onset No Information Payers Payer name Insurance type Covered green party ID Authoriza tion(s) No Information Social History [...]
--- OUTSIDE RECORDS SUMMARY | 2024-07-16 01:31 | XMS_ITS | Clinical Summary ---
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 Pulse 88 06/18/2023 8:21 PM CAUSTIC PURIFICATION OPERATOR Temperature 36.7 C (98 F) 06/18/2023 8:21 PM CAUSTIC PURIFICATION OPERATOR Respiratory Rate 18 06/18/2023 8:21 PM CAUSTIC PURIFICATION OPERATOR Oxygen Saturation 98% 06/18/2023 8:21 PM CAUSTIC PURIFICATION OPERATOR Inhaled Oxygen Concentration - - Weight 86.2 kg (190 lb) 06/18/2023 6:16 PM CAUSTIC PURIFICATION OPERATOR Height 170.2 cm (5' 7 ) 06/18/2023 6:16 PM CAUSTIC PURIFICATION OPERATOR Body Mass Index 29.76 06/18/2023 6:16 PM CAUSTIC PURIFICATION OPERATOR Plan of Treatment Health Maintenance Due Date [...] Maloney, RN Medical Devices Implanted Type Area Direct Marketing Analyst Device Identifier Shelf Expiration Date Model / Serial / Lot Stent Ureteral [place] [employer] Contour Vl 4.8fr X 22-30cm - [id number] Implanted:Qty : 1 on 02/08/2021 by Philipp Valdez MD at [facility] Stent Left: Ureter [employer] [id number] 06/24/2023 [id number] / / [id number] Insurance [address] [facility] Advance Directives * Full Code (Latest Code Status on File) Date Activated Date Inactivated Comments 02/08/2021 9:25 AM 02/09/2021 3:49 PM Care Teams Marketing Secretary Relationship Specialty Start Date End Date Aisha Heller PA-C [address] [place], [place] [address] [place] [address] 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
--- NOTE | 2024-07-16 06:10 | WPDHPUPDATE1 ---
History and Physical Update Update Date/Time: 07/16/24 06:10 History and Physical has been reviewed, including an updated exam of the patient. There are NO changes in the patient's condition. Risks, benefits, and alternatives have been discussed and questions answered. Patient agrees to proceed with procedure.
--- NOTE | 2024-07-16 09:50 | P.PNAN_ITS ---
Anes - Initial Pre Proc Eval Procedure: Operation Date: 07/16/24 11:00 Proposed Procedures p Cystoscopy, Right Ureteroscopy, Possible Right Retrograde Pyelogram, Possible Right Stone Extraction, Possible Right Stent Placement, Possible Holmium Laser - Philipp Valdez MD Date/Time: 07/16/24 09:50 Surgeon: Philipp Valdez MD Pre Op Diagnosis: right ureteral stone Patient Data Age: 58 Gender: F Height: 1.7 m Weight: 80.29 kg Allergies Allergy/AdvReac Type Severity Reaction Status Date / Time omeprazole Allergy Severe Chest Pain Verified 07/14/24 16:19 Penicillins Allergy Unknown Unknown Verified 07/14/24 16:19 Home Medications ?Medication ?Instructions ?Recorded ?Confirmed ?Type ubrogepant 100 mg tablet (Ubrelvy) 100 mg PO ONCE 12/07/22 07/14/24 History zolpidem 5 mg tablet (Ambien) 5 mg PO HS PRN Insomnia #90 tabs 01/28/24 07/14/24 Rx galcanezumab-gnlm 120 mg/mL 120 mg subcut MONTHLY 04/08/24 07/14/24 History subcutaneous pen injector (Emgality Pen) famotidine 20 mg tablet 20 mg PO HS 07/14/24 07/14/24 History Patient hx anesthesia problems: post op nausea/vomiting Family hx anesthesia problems: none Results Review: All pre-operative results and documents have been reviewed as part of the pre- operative evaluation. [facility] Past Medical History Medical History Kidney stones Anxiety Pulmonary nodule Primary insomnia GERD (gastroesophageal reflux disease) Insomnia Raynaud's disease Hx of migraines Anxiety Surgical History Surgical History H/O esophagogastroduodenoscopy Hx of appendectomy 1979 History of tonsillectomy 03/2007 Hx of tubal ligation 09/2001 H/O lithotripsy 2014,2020,2021 Hx of cystoscopy Family History Family History Other Family history of coronary artery disease Social History Social History Social History: 06/02/24 Patient declined SDOH Smoking status: Never smoker Alcohol intake: current Drinks per week: 2 Substance use: never Substance use type: does not use Do You Feel Safe in your Home?: Yes Lack of Transportation: No Lack of Food: Never True Current Housing: I Have Housing Concerned About Future Housing: No Difficulty Paying Gas/Electric Bills: No Difficulty Paying for Meds: No Currently Unemployed: No Education: Trade/Vocational Certificate Difficulty w/ Childcare or Family Care: No Living arrangements: with family Additional living arrangements comments: DAUGHTER Occupation/Education: occupation Gender identity (if verbalized by the patient): Female Sexual Orientation (if Verbalized by the Patient): Straight or Heterosexual Spiritual care concerns: No Anes - Eval Final PreProcedure Day of Procedure 07/16/24 09:50 Patient weight: overweight Heart: regular rate and rhythm Lungs: clear to auscultation Airway: Mallampati scale class II Neurological: alert and oriented Last oral intake: >/= 8 hours ASA classification: III Emergent: no Anesthetic plan: proceed Anesthesia type and monitoring: general LMA and standard monitoring Results Review: All pre-operative results and documents have been reviewed as part of the pre- operative evaluation. Informed Consent: The patient's anesthetic plan and its attendant risks and benefits were discussed with the patient/family/POA. Questions were solicited and answers provided to the satisfaction of the patient/family/POA.
[2024-07-16] MEDS: SCOPOLAMINE 1 MG PATCH 1 PATCH TRANSDERM (10:30)
[2024-07-16] MEDS: LACTATED RINGERS 1,000 ML 30 ML IV CONT (11:00)
[2024-07-16] MEDS: ceFAZolin 2 GM/D5W 50 ML 2 GM/50 ML BAG IVPB (11:56)
[2024-07-16] MEDS: LIDOCAINE 2% GEL UROJET 10 ML PKG MUCOUS MEM (12:03)
--- NOTE | 2024-07-16 12:26 | P.OP_ITS ---
Procedure Note - Detailed Date of Procedure 07/16/24 Pre-op Diagnosis Right ureteral stone Post-op Diagnosis Same Procedure Performed Cystoscopy, right ureteroscopy with laser lithotripsy, stone extraction Surgeon Philipp Valdez MD Anesthesia General Description of Procedure Patient is brought to the operative suite where she has prepped draped in routine sterile fashion while in dorsal lithotomy position after the uneventful induction of a general LMA anesthetic. Cystoscopy was undertaken with a 19 F ri gid cystoscope. Bladder neck and urethra endoscopically normal. Bladder mucosa is normal without hyperemia. There is no intravesical foreign body or neoplasm. She has a single orthotopic ureteral orifice bilaterally. A 0.035 in glidewire was advanced into her right distal ureter. Distal ureter was dilated with an 8 F 10 F dilator. Ureteroscopy was undertaken with a short tapered semi-rigid ureteral scope. I attempted to extract the stone with a 1.9 F disposable stone basket but it is just slightly too large to extract with ease. Using a 200 micron Alejandro laser I fractured the stone in half in removed each piece with that same stone basket. Because of the patient's extreme a version to stents in the past I opted not to place ureteral stent. There was clearly no evidence of significant ureteral injury or compromise to the integrity of the ureter and this was a quite simple procedure. Patient tolerated this well was taken recovery room good condition. Drains No Packing No Pathology Yes Complications No immediate complications Condition Stable
[2024-07-16] MEDS: fentaNYL CITRATE INJ (*CRX) 100 MCG/2 ML VIAL 25 MCG IV PUSH ×8 (12:45→13:18)
[2024-07-16] MEDS: ONDANSETRON INJ 4 MG/2 ML VIAL IV PUSH ×2 (12:49→13:10)
[2024-07-16] MEDS: oxyCODONE HCL (*CRX) 5 MG TAB IR PO (14:00)
== END 2024-07-16 14:30 | disposition home or self-care (01) ==
PROVIDERS: PCP Nurse Practitioner Family; Visit Provider Urology
PROC: (CPT 52352; principal; 2024-07-16 11:00)
DX: N20.1 Calculus of ureter (principal); F41.9 Anxiety disorder, unspecified; F51.01 Primary insomnia; K21.9 Gastro-esophageal reflux disease without esophagitis; I73.00 Raynaud's syndrome without gangrene; Z98.890 Other specified postprocedural states; Z98.51 Tubal ligation status; Z82.49 Family history of ischemic heart disease and other diseases of the circulatory system
CPT/HCPCS: 52353; 74176; 74420; 82365; 88300; A9270; C1769; J0690; J1100; J2405; J2704; J3010; J7120

== ENCOUNTER 2024-07-20 13:46 | Emergency (ER) | payer BC, SELFPAY ==
[2024-07-20] VITALS (7 sets, daily range): BP systolic 108–160; BP diastolic 73–89; PULSE 78–121; RESP 12–18; TEMP 37; O2SAT 96–100
--- NOTE | ~2024-07-20 | CT_ITS ---
EXAMINATION: CT abdomen pelvis w con DATE: 07/20/2024 14:48 INDICATION: Abdominal pain TECHNIQUE: Computed tomography (CT) of the abdomen and pelvis was performed with 100 mL Omnipaque-350 intravenous contrast. Automated exposure control and iterative reconstruction technique were employe d. The dose-length product was 577.21 mGy-cm. COMPARISON: 07/16/2024 FINDINGS: Lung bases are clear. Heart size is normal. No pericardial or pleural effusion. Small sliding-type hi atal hernia. Couple gallstones the dependent aspect of the normal-appearing gallbladder. Liver, splee n, pancreas and bilateral adrenal glands are normal. 2.0 cm left renal cyst. There are a few bilatera l small nonobstructing renal stones with at least 4 stones in the right kidney measuring up to 2 mm a nd at least 6 stones measuring up to 3 mm in the left kidney. There is mild right hydroureteronephros is which extends to a transition point and approximately 1.6 cm long region of increased attenuation in the distal right ureter which is of less than calcific density potentially representing a large re nal stone with differential also including enhancing neoplasm or blood clot. Bladder, anteverted uter us and bilateral adnexa are unremarkable. There is prominent edematous-appearing wall thickening of t he distal transverse and proximal descending colon with associated hyperemia to vasa recta consistent with colitis which could be infectious, inflammatory or ischemic in etiology with location at the sp lenic flexure raising possibility of ischemia related to hypertension. Abdominal aorta hips major bra nch vessels are unremarkable with no evident hemodynamically significant stenosis including of the ce liac axis and superior mesenteric artery. The inferior mesenteric artery also opacifies with contrast but is too small to assess for stenosis. No bowel obstruction. No free intraperitoneal gas or fluid. No pathologically enlarged abdominal or pelvic lymphadenopathy. Mild lumbar and lower thoracic spond ylosis. IMPRESSION: 1. Bilateral nephrolithiasis with mild right hydroureteronephrosis extending to a transition point in the distal right ureter where there is a region of intraluminal density of less than ossific density which could represent either low density renal stone/stones, urothelial carcinoma or clot. Consider ureteroscopy for further evaluation. 2. Colitis centered at the splenic flexure which could be infectious, inflammatory or ischemic, (pote ntially hypotensive) in etiology. 3. Cholelithiasis. 4. Small sliding-type hiatal hernia. Reviewed, dictated and finalized at location B. IMPRESSION: 1. Bilateral nephrolithiasis with mild right hydroureteronephrosis extending to a transition point in the distal right ureter where there is a region of intra luminal density of less than ossific density which could represent either low d ensity renal stone/stones, urothelial carcinoma or clot. Consider ureteroscopy for further evaluation. 2. Colitis centered at the splenic flexure which could be infectious, inflammat ory or ischemic, (potentially hypotensive) in etiology. 3. Cholelithiasis. 4. Small sliding-type hiatal hernia.
--- NOTE | 2024-07-20 14:04 | ECG_ITS ---
Test Date: 2024-07-20 14:34:06 Measurements Intervals [place]set Rate: 96 P: 28 TX: 143 QRS: -3 QRSD: 92 T: 50 QT: 345 QTc: 437 Interpretive Statements SINUS RHYTHM INCOMPLETE RIGHT BUNDLE BRANCH BLOCK [90+ ms QRS DURATION, TERMINAL R IN V1/V2, 40+ ms S IN I/aVL/V4/V5/V6] No previous ECG available for comparison Electronically Signed On 07-21-2024 15:39:18 CDT by Bre Magallon M.D.
--- NOTE | 2024-07-20 14:06 | ED_ITS ---
HPI - Abdominal Pain General Chief Complaint: GI Bleed <Mell Ochoa APRN - Last Filed: 07/20/24 14:15> Stated Complaint: abd pain, blood in stool, back pain <Mell Ochoa APRN - Last Filed: 07/20/24 14:15> Time Seen by Provider: 07/20/24 14:00 <Mell Ochoa APRN - Last Filed: 07/20/24 14:15> Focused HPI: Patient is a 58-year-old female who presents to the ER with complaints of abdominal pain and lower back pain. She reports she recently had a lithotripsy for a right kidney stone but no stent was placed. Patient reports today she has developed watery, bright red diarrhea every time she uses the bathroom. She reports she has a history of hemorrhoids but currently has no rectal pain. Patient denies any other medical history relevant to this ER visit. GENERAL: Well-appearing, well-nourished, and in mild distress due to anxiety. HEAD: Normocephalic, atraumatic. CHEST: Clear to auscultation. ?No respiratory distress. HEART: Tachycardia, regular rhythm? NEURO: ?Alert and oriented x3. Patient screened in triage and initial orders placed.? ?Additional care and disposition to be based upon?diagnostic testing and treatment. <Mell Ochoa APRN - Last Filed: 07/20/24 14:15> History of Present Illness HPI narrative: I agree with the above HPI <Fidencio Aviles MD - Last Filed: 07/20/24 21:44> Related Data Home Medications: Home Medications ?Medication ?Instructions ?Recorded ?Confirmed ?Last Taken ?Type ubrogepant 100 mg tablet (Ubrelvy) 100 mg PO ONCE 12/07/22 07/16/24 07/16/24 History galcanezumab-gnlm 120 mg/mL 120 mg subcut MONTHLY 04/08/24 07/14/24 Unknown History subcutaneous pen injector (Emgality Pen) famotidine 20 mg tablet 20 mg PO HS 07/14/24 07/14/24 Unknown History <Mell Ochoa APRN - Last Filed: 07/20/24 14:15> Allergies/Adverse Reactions: Allergies Allergy/AdvReac Type Severity Reaction Status Date / Time omeprazole Allergy Severe Chest Pain Verified 07/20/24 13:46 Penicillins Allergy Unknown Unknown Verified 07/20/24 13:46 <Mell Ochoa, CUTTING MACHINE OPERATOR HELPER - Last Filed: 07/20/24 14:15> Review of Systems 2 Review of Systems: All systems reviewed & are unremarkable except as noted in HPI and below <Fidencio Aviles MD - Last Filed: 07/20/24 21:44> [facility] Past Medical History Medical History: Medical History Kidney stones Anxiety Pulmonary nodule Primary insomnia GERD (gastroesophageal reflux disease) Insomnia Raynaud's disease Hx of migraines Anxiety <Mell Ochoa, CUTTING MACHINE OPERATOR HELPER - Last Filed: 07/20/24 14:15> Surgical History Surgical History: Surgical History H/O esophagogastroduodenoscopy Hx of appendectomy 1979 History of tonsillectomy 03/2007 Hx of tubal ligation 09/2001 H/O lithotripsy 2014,2020,2021 Hx of cystoscopy <Mell Ochoa, CUTTING MACHINE OPERATOR HELPER - Last Filed: 07/20/24 14:15> Family History Family History: Family History Other Family history of coronary artery disease <Mell Ochoa, CUTTING MACHINE OPERATOR HELPER - Last Filed: 07/20/24 14:15> Social History Social History: Social History Social History: 06/02/24 Patient declined SDOH Smoking status: Never smoker Alcohol intake: current Drinks per week: 2 Substance use: never Substance use type: does not use Do You Feel Safe in your Home?: Yes Lack of Transportation: No Lack of Food: Never True Current Housing: I Have Housing Concerned About Future Housing: No Difficulty Paying Gas/Electric Bills: No Difficulty Paying for Meds: No Currently Unemployed: No Education: Trade/Vocational Certificate Difficulty w/ Childcare or Family Care: No Living arrangements: with family Additional living arrangements comments: DAUGHTER Occupation/Education: occupation Gender identity (if verbalized by the patient): Female Sexual Orientation (if Verbalized by the Patient): Straight or Heterosexual Spiritual care concerns: No <Mell Ochoa APRN - Last Filed: 07/20/24 14:15> Exam 2 Narrative: APPEARANCE: Well appearing, no pain, no distress, well-nourished. HEAD: normocephalic, atraumatic. EYES: PERRLA/EOMI, conjunctivae clear. NOSE: Normal no drainage EARS:TMS clear with good light reflex. THROAT: Pharynx clear, no exudate. NECK: Supple. No adenopathy, no masses. RESPIRATORY: Airway patent, respirations nonlabored. Clear to auscultation bilaterally, no rales, rhonchi, wheezing. CARDIOVASCULAR: Regular rate and rhythm without murmurs rubs or gallops. ABDOMINAL: Soft, nontender, nondistended, normal bowel sounds Rectal exam: Small amount of gross blood on the glove during the digital rectal exam, no large clots MUSCULOSKELETAL: Moves all extremities. Strength/ROM intact, No edema, No calf tenderness. NEURO: Alert. Cranial nerves II through XII intact. Good gait. Good coordination SKIN: Warm, dry. Normal Color <Fidencio Aviels MD - Last Filed: 07/20/24 21:44> Course Vital Signs Vital signs: Vital Signs Temperature 98.6 F 07/20/24 13:56 Pulse Rate 109 H 07/20/24 13:56 Respiratory Rate 18 07/20/24 13:56 Blood Pressure 160/83 H 07/20/24 13:56 Pulse Oximetry 100 07/20/24 13:56 Oxygen Delivery Room Air 07/20/24 13:56 Temperature 98.6 F 07/20/24 13:56 Pulse Rate 96 07/20/24 16:50 Respiratory Rate 16 07/20/24 16:50 Blood Pressure 108/79 07/20/24 16:50 Pulse Oximetry 98 07/20/24 16:50 Oxygen Delivery Room Air 07/20/24 13:56 <Mell Ochoa APRN - Last Filed: 07/20/24 14:15> Vital Signs Temperature 98.6 F 07/20/24 13:56 Pulse Rate 109 H 07/20/24 13:56 Respiratory Rate 18 07/20/24 13:56 Blood Pressure 160/83 H 07/20/24 13:56 Pulse Oximetry 100 07/20/24 13:56 Oxygen Delivery Room Air 07/20/24 13:56 Temperature 98.6 F 07/20/24 13:56 Pulse Rate 96 07/20/24 16:50 Respiratory Rate 16 07/20/24 16:50 Blood Pressure 108/79 07/20/24 16:50 Pulse Oximetry 98 07/20/24 16:50 Oxygen Delivery Room Air 07/20/24 13:56 <Fidencio Aviles MD - Last Filed: 07/20/24 21:44> MDM - Abdominal Pain MDM Narrative Medical decision making narrative: 58-year-old female presents emergency department for evaluation for some intermittent rectal bleeding. Patient has a white blood cell count of 13.2 and hemoglobin of 15.4. Patient's platelets are 258. INR is 1.0. Patient's creatinine is mildly elevated over baseline. Lactic acid is not elevated. Patient does have some hematuria on her UA. CT scan does show evidence of colitis and also does show a suspected clot within the ureter. This was after a recent stone retrieval. Patient was treated with 2 L of IV fluids and does feel significantly improved. Patient has had no rectal bleeding in the emergency department. Patient did have some blood on the digital rectal exam but no large clots were passed. Patient will be started on Augmentin for suspected colitis. Patient was advised to follow a clear liquid diet for the next 1-3 days. Patient also be provided Bentyl and Zofran. Patient was encouraged to follow up with GI. Patient does have follow-up with Urology on July 28. <Fidencio Aviles MD - Last Filed: 07/20/24 21:44> Differential Diagnosis Differential diagnosis: Likely abdominal pain, acute appendicitis, calculus of kidney, diverticulitis, gastroenteritis, pancreatitis, small bowel obstruction and other <Fidencio Aviles MD - Last Filed: 07/20/24 21:44> Lab Data Attestation: I reviewed the patient's lab results. <Fidencio Aviles MD - Last Filed: 07/20/24 21:44> Result diagrams: 07/20/24 14:28 07/20/24 14:43 <Mell Ochoa APRN - Last Filed: 07/20/24 14:15> Labs: Lab Results 07/20/24 07/20/24 07/20/24 Range/Units 14:28 14:43 15:20 WBC 13.2 H (4.5-10.0) K/mm3 RBC 5.32 (4.2-5.4) M/mm3 Hgb 15.4 H (12.0-15.0) g/dL Hct 47.9 H (37.0-47.0) % MCV 90.0 (80-100) fl MCH 28.9 (26-34) pg MCHC 32.2 (32-36) g/dl RDW 14.3 (11.5-14.5) % Plt Count 258 (150-375) k/mm3 MPV 9.3 (7.4-10.4) fl Immature Gran % (Auto) 0.4 (0-0.5) % Neut % (Auto) 82.8 H (45.5-73.1) % Lymph % (Auto) 7.3 L (18.3-44.2) % [place] % (Auto) 9.0 H (2.6-8.5) % Eos % (Auto) 0.2 (0-4.4) % Baso % (Auto) 0.3 (0.2-1.2) % Lymph # (Auto) 0.96 (0.9-3.2) K/mm3 [place] # (Auto) 1.2 H (0.1-0.6) K/mm3 Eos # (Auto) 0.0 (0-0.3) K/mm3 Baso # (Auto) 0.0 (0.0-0.1) K/mm3 Abs Immat Gran (auto) 0.05 H (0.00-0.031) K/mm3 Absolute Neuts (auto) 10.9 H (1.3-6.7) K/mm3 Absolute Nucleated RBC 0.000 (0.0-0.012) K/mm3 Nucleated RBC % 0.0 (0.0-0.2) % PT 13.3 (11.1-14.7) Seconds INR 1.0 APTT 27.2 (22.3-36.8) Seconds Sodium 137 (137-145) mmol/L Potassium 3.4 (3.4-5.0) mmol/L Chloride 100 (98-107) mmol/L Carbon Dioxide 28 (22-30) mmol/L Anion Gap 9 (4-12) mmol/L BUN 19 H (7-17) mg/dL Creatinine 1.01 H 1.10 (0.7-1.0) mg/dL Estim Creat Clear Calc 58 53 ml/min Estimated GFR 56 L 51 L (59 - ) Glucose 119 H (65-110) mg/dL Lactic Acid (0.7-2.0) mmol/L Calcium 9.3 (8.4-10.2) mg/dL Total Bilirubin 1.1 (0.2-1.3) mg/dL AST 61 H (14-36) U/L ALT 120 H (6-35) U/L Alkaline Phosphatase 84 (38-126) U/L Troponin I < 0.012 (0.000-0.034) ng/mL Total Protein 7.0 (6.3-8.2) g/dL Albumin 3.9 (3.5-5.1) g/dL Lipase 31 (23-300) U/L Urine Color Yellow (Yellow) Urine Appearance Clear (Clear) Urine pH 6.5 (5.0-9.0) Ur Specific [place] > 1.045 H (1.001-1.035) Urine Protein 1+ H (Negative) mg/dL Urine Glucose (UA) Negative (Negative) mg/dL Urine Ketones Trace H (Negative) mg/dL Ur Blood (Man) 3+ H (Negative) Urine Nitrate Negative (Negative) Urine Bilirubin Negative (Negative) Urine Urobilinogen 0.2 (<2.0) mg/dL Add Ur Microanalysis Reviewed Leukocyte Esterase Rfl Trace H (Negative) KATIA/UL Urine RBC >100 H (0-2) /hpf Urine WBC 21-50 H (0-3) /hpf Ur Squamous Epith Cells None seen (Few) /hpf Urine Bacteria None seen /hpf Urine Casts 0-2 03/24/25 Range/Units 16:48 WBC (4.5-10.0) K/mm3 RBC (4.2-5.4) M/mm3 Hgb (12.0-15.0) g/dL Hct (37.0-47.0) % MCV (80-100) fl MCH (26-34) pg MCHC (32-36) g/dl RDW (11.5-14.5) % Plt Count (150-375) k/mm3 MPV (7.4-10.4) fl Immature Gran % (Auto) (0-0.5) % Neut % (Auto) (45.5-73.1) % Lymph % (Auto) (18.3-44.2) % [place] % (Auto) (2.6-8.5) % Eos % (Auto) (0-4.4) % Baso % (Auto) (0.2-1.2) % Lymph # (Auto) (0.9-3.2) K/mm3 [place] # (Auto) (0.1-0.6) K/mm3 Eos # (Auto) (0-0.3) K/mm3 Baso # (Auto) (0.0-0.1) K/mm3 Abs Immat Gran (auto) (0.00-0.031) K/mm3 Absolute Neuts (auto) (1.3-6.7) K/mm3 Absolute Nucleated RBC (0.0-0.012) K/mm3 Nucleated RBC % (0.0-0.2) % PT (11.1-14.7) Seconds INR APTT (22.3-36.8) Seconds Sodium (137-145) mmol/L Potassium (3.4-5.0) mmol/L Chloride (98-107) mmol/L Carbon Dioxide (22-30) mmol/L Anion Gap (4-12) mmol/L BUN (7-17) mg/dL Creatinine (0.7-1.0) mg/dL Estim Creat Clear Calc ml/min Estimated GFR (59 - ) Glucose (65-110) mg/dL Lactic Acid 0.9 (0.7-2.0) mmol/L Calcium (8.4-10.2) mg/dL Total Bilirubin (0.2-1.3) mg/dL AST (14-36) U/L ALT (6-35) U/L Alkaline Phosphatase (38-126) U/L Troponin I (0.000-0.034) ng/mL Total Protein (6.3-8.2) g/dL Albumin (3.5-5.1) g/dL Lipase (23-300) U/L Urine Color (Yellow) Urine Appearance (Clear) Urine pH (5.0-9.0) Ur Specific [place] (1.001-1.035) Urine Protein (Negative) mg/dL Urine Glucose (UA) (Negative) mg/dL Urine Ketones (Negative) mg/dL Ur Blood (Man) (Negative) Urine Nitrate (Negative) Urine Bilirubin (Negative) Urine Urobilinogen (<2.0) mg/dL Add Ur Microanalysis Leukocyte Esterase Rfl (Negative) KATIA/UL Urine RBC (0-2) /hpf Urine WBC (0-3) /hpf Ur Squamous Epith Cells (Few) /hpf Urine Bacteria /hpf Urine Casts <Mell Ochoa, CUTTING MACHINE OPERATOR HELPER - Last Filed: 07/20/24 14:15> Lab Results 07/20/24 07/20/24 07/20/24 Range/Units 14:28 14:43 15:20 WBC 13.2 H (4.5-10.0) K/mm3 RBC 5.32 (4.2-5.4) M/mm3 Hgb 15.4 H (12.0-15.0) g/dL Hct 47.9 H (37.0-47.0) % MCV 90.0 (80-100) fl MCH 28.9 (26-34) pg MCHC 32.2 (32-36) g/dl RDW 14.3 (11.5-14.5) % Plt Count 258 (150-375) k/mm3 MPV 9.3 (7.4-10.4) fl Immature Gran % (Auto) 0.4 (0-0.5) % Neut % (Auto) 82.8 H (45.5-73.1) % Lymph % (Auto) 7.3 L (18.3-44.2) % [place] % (Auto) 9.0 H (2.6-8.5) % Eos % (Auto) 0.2 (0-4.4) % Baso % (Auto) 0.3 (0.2-1.2) % Lymph # (Auto) 0.96 (0.9-3.2) K/mm3 [place] # (Auto) 1.2 H (0.1-0.6) K/mm3 Eos # (Auto) 0.0 (0-0.3) K/mm3 Baso # (Auto) 0.0 (0.0-0.1) K/mm3 Abs Immat Gran (auto) 0.05 H (0.00-0.031) K/mm3 Absolute Neuts (auto) 10.9 H (1.3-6.7) K/mm3 Absolute Nucleated RBC 0.000 (0.0-0.012) K/mm3 Nucleated RBC % 0.0 (0.0-0.2) % PT 13.3 (11.1-14.7) Seconds INR 1.0 APTT 27.2 (22.3-36.8) Seconds Sodium 137 (137-145) mmol/L Potassium 3.4 (3.4-5.0) mmol/L Chloride 100 (98-107) mmol/L Carbon Dioxide 28 (22-30) mmol/L Anion Gap 9 (4-12) mmol/L BUN 19 H (7-17) mg/dL Creatinine 1.01 H 1.10 (0.7-1.0) mg/dL Estim Creat Clear Calc 58 53 ml/min Estimated GFR 56 L 51 L (59 - ) Glucose 119 H (65-110) mg/dL Lactic Acid (0.7-2.0) mmol/L Calcium 9.3 (8.4-10.2) mg/dL Total Bilirubin 1.1 (0.2-1.3) mg/dL AST 61 H (14-36) U/L ALT 120 H (6-35) U/L Alkaline Phosphatase 84 (38-126) U/L Troponin I < 0.012 (0.000-0.034) ng/mL Total Protein 7.0 (6.3-8.2) g/dL Albumin 3.9 (3.5-5.1) g/dL Lipase 31 (23-300) U/L Urine Color Yellow (Yellow) Urine Appearance Clear (Clear) Urine pH 6.5 (5.0-9.0) Ur Specific [place] > 1.045 H (1.001-1.035) Urine Protein 1+ H (Negative) mg/dL Urine Glucose (UA) Negative (Negative) mg/dL Urine Ketones Trace H (Negative) mg/dL Ur Blood (Man) 3+ H (Negative) Urine Nitrate Negative (Negative) Urine Bilirubin Negative (Negative) Urine Urobilinogen 0.2 (<2.0) mg/dL Add Ur Microanalysis Reviewed Leukocyte Esterase Rfl Trace H (Negative) KATIA/UL Urine RBC >100 H (0-2) /hpf Urine WBC 21-50 H (0-3) /hpf Ur Squamous Epith Cells None seen (Few) /hpf Urine Bacteria None seen /hpf Urine Casts 0-2 03/24/ Range/Units 16:48 WBC (4.5-10.0) K/mm3 RBC (4.2-5.4) M/mm3 Hgb (12.0-15.0) g/dL Hct (37.0-47.0) % MCV (80-100) fl MCH (26-34) pg MCHC (32-36) g/dl RDW (11.5-14.5) % Plt Count (150-375) k/mm3 MPV (7.4-10.4) fl Immature Gran % (Auto) (0-0.5) % Neut % (Auto) (45.5-73.1) % Lymph % (Auto) (18.3-44.2) % [place] % (Auto) (2.6-8.5) % Eos % (Auto) (0-4.4) % Baso % (Auto) (0.2-1.2) % Lymph # (Auto) (0.9-3.2) K/mm3 [place] # (Auto) (0.1-0.6) K/mm3 Eos # (Auto) (0-0.3) K/mm3 Baso # (Auto) (0.0-0.1) K/mm3 Abs Immat Gran (auto) (0.00-0.031) K/mm3 Absolute Neuts (auto) (1.3-6.7) K/mm3 Absolute Nucleated RBC (0.0-0.012) K/mm3 Nucleated RBC % (0.0-0.2) % PT (11.1-14.7) Seconds INR APTT (22.3-36.8) Seconds Sodium (137-145) mmol/L Potassium (3.4-5.0) mmol/L Chloride (98-107) mmol/L Carbon Dioxide (22-30) mmol/L Anion Gap (4-12) mmol/L BUN (7-17) mg/dL Creatinine (0.7-1.0) mg/dL Estim Creat Clear Calc ml/min Estimated GFR (59 - ) Glucose (65-110) mg/dL Lactic Acid 0.9 (0.7-2.0) mmol/L Calcium (8.4-10.2) mg/dL Total Bilirubin (0.2-1.3) mg/dL AST (14-36) U/L ALT (6-35) U/L Alkaline Phosphatase (38-126) U/L Troponin I (0.000-0.034) ng/mL Total Protein (6.3-8.2) g/dL Albumin (3.5-5.1) g/dL Lipase (23-300) U/L Urine Color (Yellow) Urine Appearance (Clear) Urine pH (5.0-9.0) Ur Specific [place] (1.001-1.035) Urine Protein (Negative) mg/dL Urine Glucose (UA) (Negative) mg/dL Urine Ketones (Negative) mg/dL Ur Blood (Man) (Negative) Urine Nitrate (Negative) Urine Bilirubin (Negative) Urine Urobilinogen (<2.0) mg/dL Add Ur Microanalysis Leukocyte Esterase Rfl (Negative) KATIA/UL Urine RBC (0-2) /hpf Urine WBC (0-3) /hpf Ur Squamous Epith Cells (Few) /hpf Urine Bacteria /hpf Urine Casts <Fidencio Aviles MD - Last Filed: 07/20/24 21:44> Imaging Data Radiologist's impression: ITS Impressions Abdomen/Pelvis CT 07/20/24 15:02 IMPRESSION: 1. Bilateral nephrolithiasis with mild right hydroureteronephrosis extending to a transition point in the distal right ureter where there is a region of intraluminal density of less than ossific density which could represent either low density renal stone/stones, urothelial carcinoma or clot. Consider ureteroscopy for further evaluation. 2. Colitis centered at the splenic flexure which could be infectious, inflammatory or ischemic, (potentially hypotensive) in etiology. 3. Cholelithiasis. 4. Small sliding-type hiatal hernia. <Mell Ochoa APRN - Last Filed: 07/20/24 14:15> ITS Impressions Abdomen/Pelvis CT 07/20/24 15:02 IMPRESSION: 1. Bilateral nephrolithiasis with mild right hydroureteronephrosis extending to a transition point in the distal right ureter where there is a region of intraluminal density of less than ossific density which could represent either low density renal stone/stones, urothelial carcinoma or clot. Consider ureteroscopy for further evaluation. 2. Colitis centered at the splenic flexure which could be infectious, inflammatory or ischemic, (potentially hypotensive) in etiology. 3. Cholelithiasis. 4. Small sliding-type hiatal hernia. <Fidencio Aviles MD - Last Filed: 07/20/24 21:44> Discharge Plan Discharge Clinical Impression: Colitis, Hematuria, Abdominal pain <Mell Ochoa APRN - Last Filed: 07/20/24 14:15> Patient Disposition: Home, Self-Care <Mell Ochoa APRN - Last Filed: 07/20/24 14:15> Condition: Stable <Mell Ochoa APRN - Last Filed: 07/20/24 14:15> Instructions: Antibiotic Form, Clear Liquid Diet (ED), Abdominal Pain (ED), Colitis (ED) <Mell Ochoa APRN - Last Filed: 07/20/24 14:15> Additional Instructions: Antibiotic as directed until completed. Zofran as needed for nausea control. Bentyl as needed for abdominal cramping. Clear liquid diet for the next 1-3 days. Have close follow-up with Urology as scheduled. Have close follow-up with GI. If you have any worsening symptoms then please call or return to the emergency department. <Mell Ochoa APRN - Last Filed: 07/20/24 14:15> Patient Language: Maltese <Mell Ochoa APRN - Last Filed: 07/20/24 14:15> Prescriptions: New dicyclomine 20 mg tablet 20 mg PO QID PRN (Reason: abdominal pain) Qty: 20 0RF ondansetron 4 mg tablet,disintegrating 4 mg PO Q8H PRN (Reason: nausea and vomiting) Qty: 14 0RF ciprofloxacin HCl [Cipro] 500 mg tablet 500 mg PO Q12H 7 Days Qty: 14 0RF metronidazole 500 mg tablet 500 mg PO BID 7 Days Qty: 14 0RF No Action Ubrelvy 100 mg tablet 100 mg PO ONCE Rx Instructions: as a single dose; may repeat once in >=2 hours after first dose if needed Emgality Pen 120 mg/mL pen injector 120 mg subcut MONTHLY famotidine 20 mg tablet 20 mg PO HS Rx Instructions: TAKE 1 TABLET BY MOUTH TWICE DAILY hydrocodone-acetaminophen 5-325 mg tablet 1 - 2 tablet PO Q6H PRN (Reason: pain) Qty: 20 0RF ketorolac 10 mg tablet 10 mg PO Q6H 5 Days Qty: 20 0RF zolpidem [Ambien] 5 mg tablet 5 mg PO HS PRN (Reason: Insomnia) Qty: 90 1RF <Mell Ochoa APRN - Last Filed: 07/20/24 14:15> Follow-up/Referrals: Tila Flower, SPOT WORKER-C [Primary Care Provider] - <Mell Ochoa APRN - Last Filed: 07/20/24 14:15>
[2024-07-20 14:46] LABS: Estimated CRCL calculation 53 ml/min; Estimated Glomerular Filt Rate 51
[2024-07-20 14:46] LABS: Basophils Percent Auto 0.3 % (0.2-1.2); Eosinophils Percent Auto 0.2 % (0-4.4); Hematocrit 47.9 % (37.0-47.0); Hemoglobin 15.4 g/dL (12.0-15.0); Immature Granulocyte Absolute 0.05 K/mm3 (0.00-0.031); Immature Granulocyte Percent A 0.4 % (0-0.5); Lymphocytes Absolute Auto 0.96 K/mm3 (0.9-3.2); Lymphocytes Percent Auto 7.3 % (18.3-44.2); Mean Corpuscular HGB Conc 32.2 g/dl (32-36); Mean Corpuscular Hemoglobin 28.9 pg (26-34); Mean Platelet Volume 9.3 fl (7.4-10.4); Monocytes Absolute Auto 1.2 K/mm3 (0.1-0.6); Neutrophils Absolute Auto 10.9 K/mm3 (1.3-6.7); Neutrophils Percent Auto 82.8 % (45.5-73.1); Platelet Count Result 258 k/mm3 (150-375); Red Blood Count 5.32 M/mm3 (4.2-5.4); Red Cell Distribution Width 14.3 % (11.5-14.5); White Blood Count 13.2 K/mm3 (4.5-10.0)
[2024-07-20 14:58] LABS: Partial Thromboplastin Time 27.2 Seconds (22.3-36.8); Prothrombin Time 13.3 Seconds (11.1-14.7)
[2024-07-20 14:59] LABS: Alanine Aminotransferase 120 U/L (6-35); Albumin Level 3.9 g/dL (3.5-5.1); Alkaline Phosphatase 84 U/L (38-126); Anion Gap 9 mmol/L (4-12); Aspartate Amino Transferase 61 U/L (14-36); Bilirubin,Total 1.1 mg/dL (0.2-1.3); Blood Urea Nitrogen 19 mg/dL (7-17); Calcium 9.3 mg/dL (8.4-10.2); Carbon Dioxide 28 mmol/L (22-30); Chloride 100 mmol/L (98-107); Estimated CRCL calculation 58 ml/min; Estimated Glomerular Filt Rate 56; Glucose 119 mg/dL (65-110); Lipase 31 U/L (23-300); Potassium 3.4 mmol/L (3.4-5.0); Sodium 137 mmol/L (137-145)
[2024-07-20 15:11] LABS: Troponin I < 0.012 ng/mL (0.000-0.034)
[2024-07-20] MEDS: ACETAMINOPHEN 500 MG TABLET 1000 MG PO (15:21)
[2024-07-20 15:39] LABS: Add Urine Microscopic? YES; Appearance Urine Clear (Clear); Bacteria Urine None Seen /hpf; Bilirubin Urine Negative (Negative); Blood Urine 3+ (Negative); Color Urine Yellow (Yellow); Glucose Urine UA Negative (Negative); Ketones Urine Trace mg/dL (Negative); Leukocyte Esterase Ur Trace LEU/UL (Negative); Need Manual Microscopic Reviewed; Nitrate Urine Negative (Negative); Non Pathogenic Casts 0-2; Protein Urine 1+ mg/dL (Negative); RBC Urine >100 /hpf (0-2); Specific Grav Ur > 1.045 (1.001-1.035); Squamous Epithelial Cell Urine None Seen /hpf (Few); Urobilinogen Urine 0.2 mg/dL (<2.0); WBC Urine 21-50 /hpf (0-3); pH Urine 6.5 (5.0-9.0)
--- OUTSIDE RECORDS SUMMARY | 2024-07-20 15:44 | XMS_ITS | Clinical Summary ---
Author Organization [facility] Address [address] [place] [address] Care Team Providers Care Can Patcher Name Role Phone Adan Mitchell MD Unavailable Unavailable Aisha Heller PA-C Primary Care Provider [phone] Allergies Active Allergy Reactions Criticality Noted Date [...] Comments Blood Pressure 114/68 06/18/2023 8:21 PM TOBACCO WRAPPING MACHINE TENDER Pulse 88 06/18/2023 8:21 PM TOBACCO WRAPPING MACHINE TENDER Temperature 36.7 C (98 F) 06/18/2023 8:21 PM TOBACCO WRAPPING MACHINE TENDER Respiratory Rate 18 06/18/2023 8:21 PM TOBACCO WRAPPING MACHINE TENDER Oxygen Saturation 98% 06/18/2023 8:21 PM TOBACCO WRAPPING MACHINE TENDER Inhaled Oxygen Concentration - - Weight 86.2 kg (190 lb) 06/18/2023 6:16 PM TOBACCO WRAPPING MACHINE TENDER Height 170.2 cm (5' 7 ) 06/18/2023 6:16 PM TOBACCO WRAPPING MACHINE TENDER Body Mass Index 29.76 06/18/2023 6:16 PM TOBACCO WRAPPING MACHINE TENDER Plan of Treatment Health Maintenance Due Date [...] Maloney, RN Medical Devices Implanted Type Area Division Field Inspector Device Identifier Shelf Expiration Date Model / Serial / Lot Stent Ureteral [place] [employer] Contour Vl 4.8fr X 22-30cm - [id number] Implanted:Qty : 1 on 02/08/2021 by Philipp Valdez MD at [facility] Stent Left: Ureter [employer] [id number] 06/24/2023 [id number] 50 / / [id number] [address] [facility] Advance Directives * Full Code (Latest Code Status on File) Date Activated Date Inactivated Comments 02/08/2021 9:25 AM 02/09/2021 3:49 PM Care Teams Can Patcher Relationship Specialty Start Date End Date Aisha Heller PA-C [address] [place], [place] [address] [place] [address] PCP - General PHYSICIAN BRANCH CREDIT COUNSELOR 06/20/22 Adan Mitchell MD CARDIOVASCULAR DISEASE 09/28/15
--- OUTSIDE RECORDS SUMMARY | 2024-07-20 15:44 | XMS_ITS | Continuity of Care Document ---
Author Organization [facility] Address [address] [place] [address] Phone Care Team Providers Care Engineering Group Leader Name Role Phone Emilie Castillo Unavailable Unavailable [...] Diagnoses Date Provider Providers Copied on Encounter [facility], [address], [place], [place], [address] , tel: [phone] [facility] No Information 0 9 Laura Phan. [address] [facility], [address], [place], [place], [address], . tel: [phone] [facility], [address], [place], [place], [address] , tel: [phone] Conversion Department No Information 0 1 Conversion Doctor. [facility] [place], [address], [place]. [facility], [address], [place], [place], [address] , tel: [phone] [facility] JOINT PAIN-ANKLE 0 Conversion Doctor. [facility] [place], [address], [place]. [facility], [address], [place], [place], [address] , tel: [phone] [facility] COUGH 0 Conversion Doctor. [address] [place] [address], [address], [place]. [facility], [address], [place], [place], [address] , tel: [phone] [facility] INSOMNIA NOS Jun-0 9 Conversion Doctor. [address] [place] [address], [address], [place]. [facility], [address], [place], [place], [address] , tel: [phone] [facility] CHEST PAIN NOSLONG-TERM USE MEDS NECSCREEN LIPOID DISORDERSMALAISE AND FATIGUE NEC Nov- 0-200 8 Tony Baeza. [address] [facility], [address], [place], [place], [address], [place]. tel: [phone] [facility], [address], [place], [place], [address] , tel: [phone] [facility] OTALGIA NOSALOPECIA NOSANXIETY STATE NOSURIN TRACT INFECTION NOS Feb- 0200 8 Laura Phan. [address] [facility], [address], [place], [place], [address], [place]. tel: [phone] [facility], [address], [place], [place], [address] , tel: [phone] [facility] ACUTE URI NOS 7 Conversion Doctor. [facility] [place], [address], . [facility], [address], [place], [place], [address] , tel: [phone] [facility] ACUTE SINUSITIS NOS 7 Laura Phan. [address] , [address], [place], [place], [address], [place]. tel:[phone] [facility], [address], [place], [place], [address] , tel: [phone] [facility] ALLERGIC RHINITIS NOS 7 Conversion Doctor. [facility] [facility], [place], [address], . Family History Family Member Type Diagnosis Age At Onset No Information Payers Payer name Insurance type Covered democrat ID Authoriza tion(s) No Information Social History [...]
--- OUTSIDE RECORDS SUMMARY | 2024-07-20 15:44 | XMS_ITS | Clinical Summary ---
Author Organization [facility] Address [address] [place] [address] Care Team Providers Care Labor Contract Analyst Name Role Phone Aisha Heller Primary Care Provider [phone] Source Comments [facility],non-owned Affiliates and Associated Physician Practices is amultiple site organization consisting of ambulatory clinics and hospital sitesin [place], [place], [place] and [place]. This disclosure is being madepursuant to the Care Everywhere program and may not contain all information available regarding this patient. Last updated 18.[facility] Allergies Active Allergy Reactions Criticality Noted Date [...] Active vitamin D, ergocalciferol, (Drisdol) 1.25 MG (52300 UT) capsule Take 1 (one) capsule by [...] Comments Blood Pressure 134/84 04/15/2023 2:24 PM WORKERS COMPENSATION EXAMINER Pulse 70 04/15/2023 2:24 PM WORKERS COMPENSATION EXAMINER Temperature 36.4 C (97.5 F) 04/15/2023 2:24 PM WORKERS COMPENSATION EXAMINER Respiratory Rate - - Oxygen Saturation 70% 04/15/2023 2:24 PM WORKERS COMPENSATION EXAMINER Inhaled Oxygen Concentration - - Weight 87.5 kg (193 lb) 04/15/2023 2:24 PM WORKERS COMPENSATION EXAMINER Height 167.6 cm (5' 5.98 ) 04/15/2023 2:24 PM CS T Body Mass Index 31.17 04/15/2023 2:24 PM WORKERS COMPENSATION EXAMINER Plan of Treatment Health Maintenance Due Date [...] COMPREHENSIVE METABOLIC PANEL Routine 03/07/2023 12:15 PM WORKERS COMPENSATION EXAMINER Raynaud's disease without gangrene HEPATITIS C ANTIBODY Routine 03/07/2023 12:15 PM WORKERS COMPENSATION EXAMINER Raynaud's disease without gangrene Need for hepatitis C screening test from Last 3 Months or Most Recently Relevant to Health Maintenance Results * (ABNORMAL) COMPREHENSIVE METABOLIC PANEL (03/07/2023 12:15 PM WORKERS COMPENSATION EXAMINER) BUN 13 7 - 26 mg/dL 03/07/2023 1:21 PM [facility] Creatinine 0.80 0.56 - 0.96 mg/dL 03/07/2023 1:21 PM [facility] Sodium 144 136 - 145 mmol/L 03/07/2023 1:21 PM [facility] Potassium 3.6 3.5 - 4.5 mmol/L 03/07/2023 1:21 PM [facility] Chloride 108(H) 98 - 107 mmol/L 03/07/2023 1:21 PM [facility] CO2 27 22 - 29 mmol/L 03/07/2023 1:21 PM [facility] Glucose 91 70 - 115 mg/dL 03/07/2023 1:21 PM [facility] Calcium 9.6 8.4 - 10.2 mg/dL 03/07/2023 1:21 PM [facility] Protein Total 7.0 6.0 - 8.3 g/dL 03/07/2023 1:21 PM [facility] Albumin 3.6 3.4 - 5.0 g/dL 03/07/2023 1:21 PM [facility] Bilirubin Total 0.5 0.2 - 1.2 mg/dL 03/07/2023 1:21 PM [facility] Alkaline Phosphatase 78 40 - 150 U/L 03/07/2023 1:21 PM [facility] ALT 21 5 - 55 U/L 03/07/2023 1:21 PM [facility] AST 18 5 - 34 U/L 03/07/2023 1:21 PM [facility] Anion Gap 9 6 - 16 03/07/2023 1:21 PM [facility] BUN/Creatinine Ratio 16 7 - 23 03/07/2023 1:21 PM [facility] Osmolality Calculated 298(H) 275 - 295 mOsm/kg 03/07/2023 1:21 PM [facility] Albumin/Globulin Ratio 1.1 1.1 - 2.3 03/07/2023 1:21 PM [facility] eGFR by CKD-EPI 86(L) >=90 mL/min/1.7 3 m2 03/07/2023 1:21 PM [facility] Blood BLOOD SPECIMEN / Unknown Lab Venipuncture / Unknown 03/07/2023 12:15 PM WORKERS COMPENSATION EXAMINER 03/07/2023 12:46 PM [facility] Tony Johnston MD LAB - CHEMISTRY CHIDI WATERS [facility] Organization Address City/State/ZIP Co de Phone Number [facility] [address] [place] [address]RUST [phone] * HEPATITIS C ANTIBODY (03/07/2023 12:15 PM [facility]) Hepatitis C Antibody Non-react mariam Non-reac tive 03/07/2023 2:04 PM [facility] Comment:Hepatitis C Antibody screen indicates no serologic evidence of past or current infection with Hepatitis C Virus. Patients with unexplained liver disease who are immunocompromised or suspected of having acute Hepatitis C infection may benefit from Nucleic Acid Test (LEEANNE) for Hepatitis C Viral RNA to confirm Hepatitis C status. Blood BLOOD SPECIMEN / Unknown Lab Venipuncture / Unknown 03/07/2023 12:15 PM WORKERS COMPENSATION EXAMINER 03/07/2023 12:38 PM WORKERS COMPENSATION EXAMINER Tony Johnston MD LAB - CHEMISTRY CHIDI WATERS [facility] Organization Address City/State/[facility] Co de Phone Number [facility] [address] [place] [phone], [facility] [phone] from Last 3 Months or Most Recently Relevant to Health Maintenance Care Teams Labor Contract Analyst Relationship Specialty Start Date End Date Aisha Heller PA [address] [place] [phone] PCP - General 08/07/22
--- OUTSIDE RECORDS SUMMARY | 2024-07-20 16:19 | XMS_ITS | Clinical Summary ---
Author Organization [facility] Address [address] [place] [address] Care Team Providers Care Split Leather Department Supervisor Name Role Phone Adan Mitchell MD Unavailable Unavailable Aisha Heller PA-C Primary Care Provider [phone] Allergies Active Allergy Reactions Criticality Noted Date [...] Comments Blood Pressure 114/68 06/18/2023 8:21 PM DIVE SUPERVISOR Pulse 88 06/18/2023 8:21 PM DIVE SUPERVISOR Temperature 36.7 C (98 F) 06/18/2023 8:21 PM DIVE SUPERVISOR Respiratory Rate 18 06/18/2023 8:21 PM DIVE SUPERVISOR Oxygen Saturation 98% 06/18/2023 8:21 PM DIVE SUPERVISOR Inhaled Oxygen Concentration - - Weight 86.2 kg (190 lb) 06/18/2023 6:16 PM DIVE SUPERVISOR Height 170.2 cm (5' 7 ) 06/18/2023 6:16 PM DIVE SUPERVISOR Body Mass Index 29.76 06/18/2023 6:16 PM DIVE SUPERVISOR Plan of Treatment Health Maintenance Due Date [...] Maloney, RN Medical Devices Implanted Type Area Social Media Intern Device Identifier Shelf Expiration Date Model / Serial / Lot Stent Ureteral [employer] Sci Contour Vl 4.8fr X 22-30cm - [id number] Implanted:Qty : 1 on 02/08/2021 by Philipp Valdez MD at [facility] Stent Left: Ureter [employer] [id number] 06/24/2023 [id number] / / [id number] Insurance [address] [facility] Advance Directives * Full Code (Latest Code Status on File) Date Activated Date Inactivated Comments 02/08/2021 9:25 AM 02/09/2021 3:49 PM Care Teams Split Leather Department Supervisor Relationship Specialty Start Date End Date Aisha Heller PA-C [address] [place], [place] [address] [place] [address] PCP - General PHYSICIAN GLOBAL REGULATORY AFFAIRS MANAGER 06/20/22 Adan Mitchell MD CARDIOVASCULAR DISEASE 09/28/15
--- OUTSIDE RECORDS SUMMARY | 2024-07-20 16:19 | XMS_ITS | Clinical Summary ---
Author Organization [facility] Address [address] [facility] [place] [address] Care Team Providers Care Restaurant Floor Manager Name Role Phone Aisha Heller Primary Care Provider [phone] [facility],non-owned Affiliates and Associated Physician Practices is amultiple site organization consisting of ambulatory clinics and hospital sitesin [place], [place], [place] and [place]. This disclosure is being madepursuant to the Care Everywhere program and may not contain all information available regarding this patient. Last updated 18.[facility] Allergies Active Allergy Reactions Criticality Noted Date [...] Active vitamin D, ergocalciferol, (Drisdol) 1.25 MG (89216 UT) capsule Take 1 (one) capsule by [...] Comments Blood Pressure 134/84 04/15/2023 2:24 PM INS[employer]ODU[employer] Pulse 70 04/15/2023 2:24 PM INS[employer] Temperature 36.4 C (97.5 F) 04/15/2023 2:24 PM [employer] Respiratory Rate - - Oxygen Saturation 70% 04/15/2023 2:24 PM INS[employer] Inhaled Oxygen Concentration - - Weight 87.5 kg (193 lb) 04/15/2023 2:24 PM INS[employer]ODU[employer] Height 167.6 cm (5' 5.98 ) 04/15/2023 2:24 PM CS T Body Mass Index 31.17 04/15/2023 2:24 PM INSPECTOR P[employer] PRODUCTS Plan of Treatment Health Maintenance Due Date [...] COMPREHENSIVE METABOLIC PANEL Routine 03/07/2023 12:15 PM INSPECTOR P[employer]ER PRODUCTS Raynaud's disease without gangrene HEPATITIS C ANTIBODY Routine 03/07/2023 12:15 PM INSPECTOR PAPER PRODUCTS Raynaud's disease without gangrene Need for hepatitis C screening test from Last 3 Months or Most Recently Relevant to Health Maintenance Results * (ABNORMAL) COMPREHENSIVE METABOLIC PANEL (03/07/2023 12:15 PM INSPECTOR P[employer]ER PRODU[employer]) BUN 13 7 - 26 mg/dL 03/07/2023 1:21 PM [facility] Creatinine 0.80 0.56 - 0.96 mg/dL 03/07/2023 1:21 PM [facility] Sodium 144 136 - 145 mmol/L 03/07/2023 1:21 PM [facility] Potassium 3.6 3.5 - 4.5 mmol/L 03/07/2023 1:21 PM [facility] Chloride 108(H) 98 - 107 mmol/L 03/07/2023 1:21 PM [facility] CO2 27 22 - 29 mmol/L 03/07/2023 1:21 PM [facility] Glucose 91 70 - 115 mg/dL 03/07/2023 1:21 PM [facility] Calcium 9.6 8.4 - 10.2 mg/dL 03/07/2023 1:21 PM [facility] Protein Total 7.0 6.0 - 8.3 g/dL 03/07/2023 1:21 PM [facility] Albumin 3.6 3.4 - 5.0 g/dL 03/07/2023 1:21 PM [facility] Bilirubin Total 0.5 0.2 - 1.2 mg/dL 03/07/2023 1:21 PM [facility] Alkaline Phosphatase 78 40 - 150 U/L 03/07/2023 1:21 PM [facility] ALT 21 5 - 55 U/L 03/07/2023 1:21 PM [facility] AST 18 5 - 34 U/L 03/07/2023 1:21 PM [facility] Anion Gap 9 6 - 16 03/07/2023 1:21 PM [facility] BUN/Creatinine Ratio 16 7 - 23 03/07/2023 1:21 PM [facility] Osmolality Calculated 298(H) 275 - 295 mOsm/kg 03/07/2023 1:21 PM [facility] Albumin/Globulin Ratio 1.1 1.1 - 2.3 03/07/2023 1:21 PM [facility] eGFR by CKD-EPI 86(L) >=90 mL/min/1.7 3 m2 03/07/2023 1:21 PM [facility] Blood BLOOD SPECIMEN / Unknown Lab Venipuncture / Unknown 03/07/2023 12:15 PM INSPECTOR P[employer]ER PRODUCTS 03/07/2023 12:46 PM [facility] Tony Johnston MD LAB - CHEMISTRY CHIDI WATERS [facility] Organization Address City/State/ZIP Co de Phone Number [facility] [address] [place] [address] [phone] * HEPATITIS C ANTIBODY (03/07/2023 12:15 PM [facility]) Hepatitis C Antibody Non-react mariam Non-reac tive 03/07/2023 2:04 PM [facility] Comment:Hepatitis C Antibody screen indicates no serologic evidence of past or current infection with Hepatitis C Virus. Patients with unexplained liver disease who are immunocompromised or suspected of having acute Hepatitis C infection may benefit from Nucleic Acid Test (LEEANNE) for Hepatitis C Viral RNA to confirm Hepatitis C status. Blood BLOOD SPECIMEN / Unknown Lab Venipuncture / Unknown 03/07/2023 12:15 PM INS[employer] 03/07/2023 12:38 PM [employer] Tony Johnston MD LAB - CHEMISTRY CHIDI WATERS [facility] Organization Address City/State/[facility] Co de Phone Number [facility] [address] [place] [phone], [facility] [phone] from Last 3 Months or Most Recently Relevant to Health Maintenance Care Teams Restaurant Floor Manager Relationship Specialty Start Date End Date Aisha Heller PA [address] [place] [address] PCP - General 08/07/22
--- OUTSIDE RECORDS SUMMARY | 2024-07-20 16:19 | XMS_ITS | Continuity of Care Document ---
Author Organization [facility] Address [address] [place] [address] Phone Care Team Providers Care Roulette Dealer Name Role Phone Emilie Castillo Unavailable Unavailable [...] Diagnoses Date Provider Providers Copied on Encounter [employer], [address], [place], [place], [id number] , tel: [phone] [facility] No Information 0 9 Laura Phan. [address] [facility], [address], [place], [place], [id number], . tel: [phone] [facility], [address], [place], [place], [address] , tel: [phone] Conversion Department No Information 0 1 Conversion Doctor. [facility] [place], [address], [place]. [facility], [address], [place], [place], [address] , tel: [phone] [facility] JOINT PAIN-ANKLE 0 Conversion Doctor. [facility] [place], [address], [place]. [facility], [address], [place], [place], [address] , tel: [phone] [facility] COUGH 0 Conversion Doctor. [address] [place] [address], [address], [place]. [facility], [address], [place], [place], [address] , tel: [phone] [facility] INSOMNIA NOS Jun-0 9 Conversion Doctor. [address] [place] [address], [address], [place]. [facility], [address], [place], [place], [address] , tel: [phone] [facility] CHEST PAIN NOSLONG-TERM USE MEDS NECSCREEN LIPOID DISORDERSMALAISE AND FATIGUE NEC Nov- 0-200 8 Tony Baeza. [address] [facility], [address], [place], [place], [address], [place]. tel: [phone] [facility], [address], [place], [place], [address] , tel: [phone] [facility] OTALGIA NOSALOPECIA NOSANXIETY STATE NOSURIN TRACT INFECTION NOS Feb- 0200 8 Laura Phan. [address] [facility], [address], [place], [place], [address], [place]. tel: [phone] [facility], [address], [place], [place], [address] , tel: [phone] [facility] ACUTE URI NOS 7 Conversion Doctor. [facility] [place], [address], . [facility], [address], [place], [place], [address] , tel: [phone] [facility] ACUTE SINUSITIS NOS 7 Laura Phan. [address] , [address], [place], [place], [address], [place]. tel: [phone] [facility], [address], [place], [place], [address] , tel: [phone] [facility] ALLERGIC RHINITIS NOS 7 Conversion Doctor. [facility], [place], [address], . Family History Family Member Type Diagnosis [...]
[2024-07-20] MEDS: LACTATED RINGERS 2,000 ML 999 ML IV CONT (17:03)
[2024-07-20] MEDS: HYDROmorphone HCL INJ (*CRX) 1 MG/ML SYR 0.5 MG IV PUSH (17:04)
[2024-07-20 17:08] LABS: Lactic Acid Reflex 0.9 mmol/L (0.7-2.0)
[2024-07-20] MEDS: AMOXICILLIN/CLAVULANATE K 875-125 MG TAB 1 TABLET PO (17:23)
[2024-07-20] MEDS: DICYCLOMINE HCL INJ 20 MG/2 ML VIAL IM (19:09)
== END 2024-07-20 19:23 | disposition home or self-care (01) ==
PROVIDERS: Registered Nurse; Emergency Provider Emergency Medicine; PCP Nurse Practitioner Family
DX: K52.9 Noninfective gastroenteritis and colitis, unspecified (principal); R31.9 Hematuria, unspecified; K21.9 Gastro-esophageal reflux disease without esophagitis; I73.00 Raynaud's syndrome without gangrene; F41.9 Anxiety disorder, unspecified
CPT/HCPCS: 36415; 74177; 80053; 81001; 83605; 83690; 84484; 85025; 85610; 85730; 87086; 87181; 93005; 96361; 96372; 96374; 99283; A9270; J0500; J1171; J7120; Q9967

== ENCOUNTER 2025-01-04 17:12 | Outpatient (CLI) | payer BC, SELFPAY ==
--- OUTSIDE RECORDS SUMMARY | 2018-07-02 04:44 | XMS_ITS | Continuity of Care Document ---
[facility] Organization [facility] Address [address] [place] [address] Phone Care Team Providers Care Clean Room Assembler Name Role Phone Emilie Castillo Unavailable Unavailable Allergies, Adverse Reactions, Alerts Substance Reaction Status Criticality No Known Drug Allergies Other Active No I nformation Medications Medication Instructions Dosage Effective Dates (start - stop) Status Comments ZITHROMAX 250 MG Z-LAURA TABLET 0 DIRECTE - No Longer Active take 2 po the first day, then one daily x 4 days AMBIEN 10 MG TABLET 1 QHS No Longer Active BIAXIN 500 MG TABLET 1 BID 2009 - No Longer Active XOPENEX HFA 45 MCG INHALER 2 Q 6HR - No Longer Active PRISTIQ 50 MG TABLET 1 QD-daily 2008 - No Longer Active SPIRONOLACTONE 50MG TABS 1 BID - No Longer Active NASACORT AQ 55MCG APPLICS 2 QD-daily - No Longer Active ANTIPYRINE W/BENZOCAINE 5.4-1. 3 QID - No Longer Active Advance Directives Directive Yes / No Effective Date File Name No Information Encounters Encounter Description Practice Location Reason(s) For Visit Diagnoses Date Provider Providers Copied on Encounter [facility], [address], [place], [place], [address] , tel: [phone] [facility] No Information 0 9 Laura Phan. [address] [facility] [place], [address], [place], [place], [address], . tel: [phone] [facility], [address], [place], [place], [address] , tel: [phone] Conversion Department No Information 0 1 Conversion Doctor. [facility] [place], [address], [place] [facility], [address], [place], [place], [address] , tel: [phone] [facility] JOINT PAIN-ANKLE 0 Conversion Doctor. [facility] [place], [address], [place] [facility], [address], [place], [place], [address] , tel: [phone] [facility] COUGH 0 Conversion Doctor. [address] [place] [address], [address], [place] [facility], [address], [place], [place], [address] , tel: [phone] [facility] INSOMNIA NOS Jun-0 9 Conversion Doctor. [address] [place] [address], [address], [place]. [facility], [address], [place], [place], [address] , tel: [phone] [facility] CHEST PAIN NOSLONG-TERM USE MEDS NECSCREEN LIPOID DISORDERSMALAISE AND FATIGUE NEC Nov- 0-[address] [facility], [address], [place], [place], [address], [place]. tel: [phone] [facility], [address], [place], [place], [address] , tel: [phone] [facility] OTALGIA NOSALOPECIA NOSANXIETY STATE NOSURIN TRACT INFECTION NOS Feb- 0200 8 Laura Phan. [address] [facility] [place], [address], [place], [place], [address], [place]. tel: [phone] [facility], [address], [place], [place], [address] , tel: [phone] [facility] ACUTE URI NOS 7 Conversion Doctor. [facility] [place], [address], [address] [facility], [address], [place], [place], [address] , tel: [phone] [facility] ACUTE SINUSITIS NOS 7 Laura Phan. [address] , [address], [place], [place], [address], [place]. tel:[phone] [facility], [address], [place], [place], [address] , tel: [phone] [facility] ALLERGIC RHINITIS NOS 7 Conversion Doctor. [facility], [place], [address], . Family History Family Member Type Diagnosis Age At Onset No Information Payers Payer name Insurance type Covered republican ID Authoriza tion(s) No Information Social History Type Description Quantity Date Captured Comments Alcohol Use Details Unknown Caffeine Use Details Unknown Tobacco Use Status No Information Smoking Status No Information Sex Female Chief Complaint And Reason For Visit No Information Reason For Referral Reason For Referral No Information History Of Present Illness Encounter Date Complaint History Of Prese nt Illness No Information Functional Status Date Functional Assessmen t No Information Instructions Date Instruction Additional Infor mation No Information Assessments Type Assessment Date No Information Patient Care Teams Name Effective Dates (start - stop) Status Members No Information
--- NOTE | ~2025-01-04 | XR_ITS ---
EXAMINATION: XR abdomen/kub 1V DATE: 01/04/2025 17:28 INDICATION: Ureteral calculus TECHNIQUE: A supine view of the abdomen on 2 radiographs was obtained. COMPARISON: CT dated 07/20/2024 FINDINGS: There are 3 small stones at the upper pole the left kidney and 2 stones at the lower pole the left kidney the largest measuring up to 3 mm. There are 3 small stones in the right kidney, one at the mid right kidney and 2 at the upper pole the right kidney the largest measuring up to 2 mm in maximal diameter. No dilated loops of gas-filled bowel to suggest obstruction. There are few phleboliths in the pelvis. IMPRESSION: 1. Bilateral nephrolithiasis which appears unchanged since prior CT. Reviewed, dictated and finalized at location A.
--- OUTSIDE RECORDS SUMMARY | 2025-01-04 17:16 | XMS_ITS | Clinical Summary ---
Author Organization [facility] Address [address] [place] [address] Care Team Providers Care Public Relations Manager Name Role Phone Adan Mitchell MD Unavailable Unavailable Aisha Heller PA-C Primary Care Provider [phone] Allergies Active Allergy Reactions Criticality Noted Date [...] Comments Blood Pressure 114/68 06/18/2023 8:21 PM BIT WELDER Pulse 88 06/18/2023 8:21 PM BIT WELDER Temperature 36.7 C (98 F) 06/18/2023 8:21 PM BIT WELDER Respiratory Rate 18 06/18/2023 8:21 PM BIT WELDER Oxygen Saturation 98% 06/18/2023 8:21 PM BIT WELDER Inhaled Oxygen Concentration - - Weight 86.2 kg (190 lb) 06/18/2023 6:16 PM BIT WELDER Height 170.2 cm (5' 7) 06/18/2023 6:16 PM BIT WELDER Body Mass Index 29.76 06/18/2023 6:16 PM BIT WELDER Plan of Treatment Health Maintenance Due Date [...] wi th HPV 1996 Mammogram Screening 2006 Pneumococcal Vaccine: 50+ Years (1 of 1 - PCV) 2016 Zoster Vaccines (1 of 2) 2016 COVID-19 Vaccine (3 2023-2 5 season) 2023 09/08/2020, 08/11/2020 Meningococcal B Vaccine Aged Out No l [...] Maloney, RN Medical Devices Implanted Type Area Watch Repair Technician Device Identifier Shelf Expiration Date Model / Serial / Lot Stent Ureteral [place] Sci Contour Vl 4.8fr X 22-30cm - [id number] Implanted:Qty : 1 on 02/08/2021 by Philipp Valdez MD at [facility] Stent Left: Ureter [employer] [id number] 06/24/2023 [id number] 50 / / [id number] Insurance [address] [facility] Advance Directives * Full Code (Latest Code Status on File) Date Activated Date Inactivated Comments 02/08/2021 9:25 AM 02/09/2021 3:49 PM Care Teams Public Relations Manager Relationship Specialty Start Date End Date Aisha Heller PADeedeeC [address] [place] [address] [address] [place] [address] PCP - General PHYSICIAN MILITARY PAY TECHNICIAN 06/20/22 Adan Mitchell MD CARDIOVASCULAR DISEASE 09/28/15
--- OUTSIDE RECORDS SUMMARY | 2025-01-04 17:16 | XMS_ITS | Clinical Summary ---
Author Organization [facility] eVendor Check Address [address] [place] [address] Care Team Providers Care Straightening Press Operator Helper Name Role Phone Aisha Heller Primary Care Provider Source Comments [facility],non-owned Affiliates and Associated Physician Practices is amultiple site organization consisting of ambulatory clinics and hospital sitesin [place], [place], [place] and [place]. This disclosure is being madepursuant to the Care Everywhere program and may not contain all information available regarding this patient. Last updated 18.[facility] [employer] [facility] Allergies Active Allergy Reactions Criticality Noted Date Comments Omeprazole GI Discomfort 03/07/2023 Penicillins Swelling 03/07/2023 Medications * Be aware that medications may not be up to date on this document. Alwaysverify current medications with the patient. zolpidem (Ambien) 5 MG tablet 3 Active Ubrelvy 100 MG tablet 3 Active famotidine (Pepcid) 20 MG tablet Take 1 (one) tablet by mouth 2 times daily 3 Active cyanocobalamin (Vitamin B-12) 100 MCG tablet Take 1 (one) tablet by mouth once daily Active cetirizine (ZyrTEC) 10 MG chew tablet Take 1 (one) tablet by mouth once daily Active magnesium gluconate 500 (27 Mg) MG tablet Take 1 (one) tablet by mouth once daily Active vitamin D, ergocalciferol , (Drisdol) 1.25 MG (37231 UT) capsule Take 1 (one) capsule by mouth every 7 days 3 Active metroNIDAZOLE (Flagyl) 500 MG tablet Take 1 (one) tablet by mouth 2 times daily FOR 7 DAYS 5 Active ketorolac (Toradol) 10 MG tablet TAKE 1 TABLET BY MOUTH EVERY 6 HOURS FOR 5 DAYS 5 Active dicyclomine (Bentyl) 10 MG capsule Take 1 (one) capsule by mouth 4 times daily as needed 60 capsule 5 Active Galcanezumab-g nlm (Emgality) 120 MG/ML auto-injector pen Inject 1 mL subcutaneously every 30 days Active Social History Tobacco Use Types Packs/Day Years Used Date Smoking Tobacco: Never Smokeless Tobacco: Never Tobacco Cessation:Counseling Given: Not Answered Alcohol Use Standard Drinks/Week Comments Yes 0 (1 standard drink = 0.6 oz pur e alcohol) social PHQ-2 Answer Date Recorded Patient Health Questionnaire-2 Score 0 03/07/2023 Comments No Sex and Gender Information Value Date Recorded Sex Assigned at Female 08/10/2024 12:48 PM CDT Legal Sex Female 6:11 AM SLIP TENDER Gender Identity Female 08/10/2024 12:48 PM CDT Sexual Orientation Not on file Last Filed Vital Signs Vital Sign Reading Time Taken Comments Blood Pressure 123/80 08/10/2024 3:40 PM CDT Pulse 81 08/10/2024 3:40 PM CDT Temperature 36.9 C (98.5 F) 08/10/2024 1:49 PM CDT Respiratory Rate 19 08/10/2024 3:40 PM CDT Oxygen Saturation 99% 08/10/2024 3:40 PM CDT Inhaled Oxygen Concentration - - Weight 77.1 kg (170 lb) 08/10/2024 1:49 PM CDT Height 168.9 cm (5' 6.5) 08/10/2024 1:49 PM CDT Body Mass Index 27.03 08/10/2024 1:49 PM CDT Plan of Treatment Health Maintenance Due Date Last Done Comments COLOGUARD (AGES 45-75) - COL ON CA SCREENING 1966 CT COLONOGRAPHY - COLON CA SCREENING 1965 FIT - COLON CA SCREENING 1966 FLEX SIG - COLON CA SCREENING 1966 LIPID TESTING 1966 MAMMOGRAM 1966 HIV SCREENING 1981 DTAP/TDAP/TD VACCINES (1 - Tdap) 1985 HEPATITIS B VACCINE (1 of 3 - 19+ 3-dose series) 1985 PAP SMEAR 10/15/1987 PNEUMOCOCCAL VACCINE 50+ (1 of 1 - PCV) 2016 ZOSTER VACCINE (1 of 2) 2016 DEPRESSION SCREENING 04/29/2024 03/07/2023 COVID-19 VACCINE (1 - 2023-2 5 season) 2024 INFLUENZA VACCINE (#1) 2024 SCREENING FOR DIABETES 03/07/2026 03/07/2023 COLON MONITORING 08/10/2034 08/10/2024, 08/10/2024, 08/10/2024 COLONOSCOPY - COLON CA SCREENING 08/10/2034 08/10/2024, 08/10/2024, 08/10/2024 Colorectal Cancer Screening 08/10/2034 HEPATITIS C SCREENING Completed 03/07/2023 HIB VACCINE Aged Out No longer eligi ble based on patient's age to complete this topic HPV VACCINE Aged Out No longer eligi ble based on patient's age to complete this topic MENINGOCOCCAL (Group B) VACCINE SHARED DECISION-MAKING Aged Out No longer eligible based on patient's age to complete this topic MENINGOCOCCAL GROUPS A/C/Y/W VACCINE Aged Out No longer eligible b ased on patient's age to complete this topic Procedures Procedure Name Priority Date/Time Associated Diagnosis Comments ENDOSCOPY, COLON, DIAGNOSTIC Routine 08/10/2024 1:45 PM CDT BRBPR (bright red blood per rectum) Bowel habit changes COMPREHENSIVE METABOLIC PANEL Routine 03/07/2023 12:15 PM SLIP TENDER Raynaud's disease without gangrene HEPATITIS C ANTIBODY Routine 03/07/2023 12:15 PM SLIP TENDER Raynaud's disease without gangrene Need for hepatitis C screening test from Last 3 Months or Most Recently Relevant to Health Maintenance Results * Endoscopy, Colon, Diagnostic (08/10/2024 1:45 PM CDT) Report Endoscopy POC _ Patient Name: Ayana Marinelli Procedure Date: 08/10/2024 1:45 PM Date of : 1965 Admit Type: Outpatient Age: 58 Gender: Female Ethnicity: Not or Race: White Attending MD: Dada Tubbs MD, [id number] _ Procedure: Colonoscopy Indications: Screening for colorectal malignant neoplasm Providers: Dada Tubbs MD (Doctor), Audi Goff RN, Ericka Mcgowan, Health Careers Instructor Patient Profile: 58F presents for avg risk screening. last exam > 5 yrs Referring MD: Aisha Heller (Referring MD) Medicines: Monitored Anesthesia Care Complications: No immediate complications. _ Estimated Blood Loss: Estimated blood loss was minimal. Procedure: Pre-Anesthesia Assessment: - Prior to the procedure, a History and Physical was performed, and patient medications and allergies were reviewed. The patient's tolerance of previous anesthesia was also reviewed. The risks and benefits of the procedure and the sedation options and risks were discussed with the patient. All questions were answered, and informed consent was obtained. Prior Anticoagulants: The patient has taken no anticoagulant or antiplatelet agents. ASA Grade Assessment: II - A patient with mild systemic disease. After reviewing the risks and benefits, the patient was deemed in satisfactory condition to undergo the procedure. After I obtained informed consent, the scope was passed under direct vision. Throughout the procedure, the patient's blood pressure, pulse, and oxygen saturations were monitored continuously. The Colonoscope was introduced through the anus and advanced to the cecum, identified by appendiceal orifice and ileocecal valve. The colonoscopy was performed without difficulty. The patient tolerated the procedure well. The quality of the bowel preparation was fair. The ileocecal valve, appendiceal orifice, and rectum were photographed. Impression: - Preparation of the colon was fair. - One 5 mm polyp in the ascending colon, removed with a cold biopsy forceps. Resected and retrieved. - One 10 mm polyp at the recto-sigmoid colon, removed with a cold snare. Resected and retrieved. - Internal hemorrhoids. Findings: The perianal and digital rectal examinations were normal. A 5 mm polyp was found in the ascending colon. The polyp was sessile. The polyp was removed with a cold biopsy forceps. Resection and retrieval were complete. A 10 mm polyp was found in the recto-sigmoid colon. The polyp was sessile. The polyp was removed with a cold snare. Resection and retrieval were complete. Internal hemorrhoids were found during retroflexion. The hemorrhoids were small. _ Recommendation: - Patient has a contact number available for emergencies. The signs and symptoms of potential delayed complications were discussed with the patient. Return to normal activities tomorrow. Written discharge instructions were provided to the patient. - Resume previous diet. - Repeat colonoscopy in 4 years for surveillance based on pathology results. - Use fiber, for example Citrucel, Fibercon, Konsyl or Metamucil. Procedure Code(s): --- Professional --- 95748, Colonoscopy, flexible; with removal of tumor(s), polyp(s), or other lesion(s) by snare technique 73278, 59, Colonoscopy, flexible; with biopsy, single or multiple --- Technical --- 26076, Colonoscopy, flexible; with removal of tumor(s), polyp(s), or other lesion(s) by snare technique [id number], 59, Colonoscopy, flexible; with biopsy, single or multiple Diagnosis Code(s): --- Professional --- Z12.11, Encounter for screening for malignant neoplasm of colon K64.8, Other hemorrhoids D12.2, Benign neoplasm of ascending colon D12.7, Benign neoplasm of rectosigmoid junction --- Technical --- Z12.11, Encounter for screening for malignant neoplasm of colon K64.8, Other hemorrhoids D12.2, Benign neoplasm of ascending colon D12.7, Benign neoplasm of rectosigmoid junction CPT copyright 2020 [employer]. All rights reserved. The codes documented in this report are preliminary and upon manager transmission review may be revised to meet current compliance requirements. Dada Tubbs MD 08/10/2024 3:22:17 PM This report has been signed electronically. Number of Addenda: 0 Note Initiated On: 08/10/2024 1:[address] [facility] 08/10/2024 1:45 PM CDT Narrative Procedure Note Dada Tubbs MD - 08/10/2024 3:25 PM CDT Colon 2 polyps/adenomas resected Int hemorrhoids Nl otherwise Rpt 4 yrs pending apth Liberalize diet D/w ayana us Dada Tubbs MD GI PROCEDURE ORDERABLES Edited R esult - Final [facility] * (ABNORMAL) COMPREHENSIVE METABOLIC PANEL (03/07/2023 12:15 PM SLIP TENDER) BUN 13 7 - 26 mg/dL 03/07/2023 1:21 PM SLIP TENDER [facility] Creatinine 0.80 0.56 - 0.96 mg/dL 03/07/2023 1:21 PM [facility] Sodium 144 136 - 145 mmol/L 03/07/2023 1:21 PM [facility] Potassium 3.6 3.5 - 4.5 mmol/L 03/07/2023 1:21 PM [facility] Chloride 108(H) 98 - 107 mmol/L 03/07/2023 1:21 PM [facility] CO2 27 22 - 29 mmol/L 03/07/2023 1:21 PM [facility] Glucose 91 70 - 115 mg/dL 03/07/2023 1:21 PM [facility] Calcium 9.6 8.4 - 10.2 mg/dL 03/07/2023 1:21 PM [facility] Protein Total 7.0 6.0 - 8.3 g/dL 03/07/2023 1:21 PM [facility] Albumin 3.6 3.4 - 5.0 g/dL 03/07/2023 1:21 PM [facility] Bilirubin Total 0.5 0.2 - 1.2 mg/dL 03/07/2023 1:21 PM [facility] Alkaline Phosphatase 78 40 - 150 U/L 03/07/2023 1:21 PM [facility] ALT 21 5 - 55 U/L 03/07/2023 1:21 PM [facility] AST 18 5 - 34 U/L 03/07/2023 1:21 PM [facility] Anion Gap 9 6 - 16 03/07/2023 1:21 PM [facility] BUN/Creatinine Ratio 16 7 - 23 03/07/2023 1:21 PM [facility] Osmolality Calculated 298(H) 275 - 295 mOsm/kg 03/07/2023 1:21 PM [facility] Albumin/Globulin Ratio 1.1 1.1 - 2.3 03/07/2023 1:21 PM [facility] eGFR by CKD-EPI 86(L) >=90 mL/min/1.7 3 m2 03/07/2023 1:21 PM [facility] Blood BLOOD SPECIMEN / Unknown Lab Venipuncture / Unknown 03/07/2023 12:15 PM SLIP TENDER 03/07/2023 12:46 PM SLIP TENDER us Tony Johnston MD LAB - CHEMISTRY ORDERABLES Final Result [address] [address], [place] [phone] * HEPATITIS C ANTIBODY (03/07/2023 12:15 PM SLIP TENDER) Hepatitis C Antibody Non-react mariam Non-reac tive 03/07/2023 2:04 PM SLIP TENDER [facility] Comment:Hepatitis C Antibody screen indicates no serologic evidence of past or current infection with Hepatitis C Virus. Patients with unexplained liver disease who are immunocompromised or suspected of having acute Hepatitis C infection may benefit from Nucleic Acid Test (LEEANNE) for Hepatitis C Viral RNA to confirm Hepatitis C status. Blood BLOOD SPECIMEN / Unknown Lab Venipuncture / Unknown 03/07/2023 12:15 PM SLIP TENDER 03/07/2023 12:38 PM SLIP TENDER Tony Johnston MD LAB - CHEMISTRY ORDERABLES Final Result Performing Organization Address [facility] Co de Phone Number [address] [address], [place] [phone] from Last 3 Months or Most Recently Relevant to Health Maintenance Insurance REPLACED BY [facility] Care Teams Straightening Press Operator Helper Relationship Specialty Start Date End Date Aisha Heller PA [address] [place] [id number] PCP - General 08/07/22
== END 2025-01-04 17:13 | disposition home or self-care (01) ==
PROVIDERS: PCP Nurse Practitioner Family; Visit Provider Urology
DX: N20.1 Calculus of ureter (principal)
CPT/HCPCS: 74018

== ENCOUNTER 2025-01-28 15:45 | Outpatient (RCR) | payer BC, SELFPAY ==
--- NOTE | 2024-11-02 16:45 | PTOPEVAL1 ---
Assessment and note entered by Eliana Wells, PT Evaluation Information Assessment Status Evaluation Diagnosis Pain in L and R hip ICD-10 Condition Codes (PT) Pain in right hip M25.551,Pain in left hip M25.552 ,Weakness R53.1 Onset chronic Subjective Information Prior to 2003 had had her hips checked and was told had bursitis in both hips, was suggested a shot and never went back Reports this last year has been the worst Side sleeper every couple of hours is awake due to pain. Was provided Robaxim muscle relaxer so would not be drowsy and could work and drive. Also takes Ambien and Melatonin. Pt reports also has migraines and has gel caps that are refrigerated not in the freezer. Was also provided 10 days of steroids with step down, but forgot to do them in order. Aggravating factors: sitting long periods, initially getting up after sitting, pressure on the hips Reported Pain Level Pain Score 0,0: Self Report Additional Pain Score Comments Radiates to buttock crease both sides L starts first Assessment PT Clinical Summary Pt presents with chronic history of ryan hip pain presentation similar to bursitis though less inflammatory at time of evaluation. She also shows possible leg length discrepancy R>L, weakness of the lumbopelvic core musculature, mildly decreased ROM ryan hip joints, and decreased flexibility BLEs. With palpation adhesions throughout quads and hamstrings noted, and gluteus minimus R especially. Pt will benefit from physical therapy in order to address deficits and improve pain to meet patient goals. Plan of Care Interventions Electrical Stimulation,Hot Pack/Cold Pack,Manual Therapy,Therapeutic Activities,Therapeutic Exercise,Self-Care/Home Management,Ultrasound, Other Other Interventions Taping PT Services Indicated Yes Treatment Frequency and 2x weekly x 16 visits Duration These treatments will address the objective and functional deficits as defined above. The patient will be advanced safely and appropriately in order for the patient to progress towards his/her prior level of function. Additional exercises will be introduced and as well as a comprehensive home exercise program upon discharge, if needed, ?to ensure carryover of functional gains achieved in the clinic. This treatment plan has been reviewed and agreement upon by the patient.
--- NOTE | 2024-11-02 16:46 | OPREHPOC ---
Outpatient Therapy Plan of Care This is a Multidisciplinary Plan of Care that may contain components documented by all disciplines (PT, OT, and ST.) PT Problem 1 PT Problem #1 Knowledge Deficit PT Goal 1 Goal / Goal Update Pt will be independent in HEP Pt will verbalize understanding of diagnosis and prognosis Target Visit 8 PT Problem 2 PT Problem #2 Pain PT Goal 1 Goal / Goal Update Pt will report pain at highest rating of 5/10 or less Target Visit 8 PT Goal 2 Goal / Goal Update Pt will report highest pain rating at 2/10 or less Target Visit 16 PT Goal 1 Goal / Goal Update Pt will demonstrate 3/5 strength in lumbopelvic core for improved stability and off loading of soft tissue structures Target Visit 8 PT Goal 2 Goal / Goal Update Pt will demonstrate 3+/5 strength in lumbopelvic core for improved stability and off loading of soft tissue structures Target Visit 16 PT Problem 4 PT Problem #4 Impaired Flexibility PT Goal 1 Goal / Goal Update Pt will demonstrate no iliotibial band tightness ryan to offload pressure on the bursa sack Target Visit 8 PT Goal 2 Goal / Goal Update Pt will demonstrate hamstring flexibility of 60 degrees or greater Target Visit 16
--- NOTE | 2025-01-01 16:18 | PTOPPROG ---
Assessment and note entered by Eliana Wells, PT Evaluation Information Assessment Status Progress Diagnosis Pain in L and R hip ICD-10 Condition Codes (PT) Pain in right hip M25.551,Pain in left hip M25.552 ,Weakness R53.1 Onset chronic Subjective Information Pt reports has good days and bad days. States was extremely sore this weekend. States with getting up will feel hunched over and takes a while to get up. Sciatica has returned. States Saturday night couldn't sleep because of right hip pain for 2 days. This past week has been better, has been able to sleep on her sides more. Noticed a large difference with the knee taping. [place] like it was easier to get going. Right back of the leg and under the glute is hurting again. Reports overall 60-70% improvement Assessment PT Clinical Summary Pt has attended therapy 10 visits over a two month period with occasional gaps in treatment due to staffing and family needs. Pt reports continued pain and that she has not returned to high level activities. Pt does also report feeling less pain overall, states the day after therapy she feels 100% better, 60-70% overall improvement otherwise, and shows improvement in flexibility and strength. Her pelvic alignment cont to show sacral torsion though no upslip today. Was provided instruction in application of DME and education on taping to her knee to assist in appropriate alignment of pelvis and LEs. Pt will benefit from continued therapy in order to continue improving ROM, flexibility, strength, and function with less discomfort. Plan of Care Interventions Electrical Stimulation,Hot Pack/Cold Pack,Manual Therapy,Therapeutic Activities,Therapeutic Exercise,Self-Care/Home Management,Ultrasound, Other Other Interventions Taping PT Services Indicated Yes Treatment Frequency and 2x weekly x 10 visits Duration These treatments will address the objective and functional deficits as defined above. The patient will be advanced safely and appropriately in order for the patient to progress towards his/her prior level of function. Additional exercises will be introduced and as well as a comprehensive home exercise program upon discharge, if needed, ?to ensure carryover of functional gains achieved in the clinic. This treatment plan has been reviewed and agreement upon by the patient.
--- NOTE | 2025-01-14 13:35 | PCPTNOTE ---
Patient called & cancelled scheduled appointment this date due to conflict with work
== END 2025-01-31 23:59 | disposition home or self-care (01) ==
LOC: ANHHIPT 15:45
PROVIDERS: PCP Nurse Practitioner Family; Visit Provider Nurse Practitioner Family
DX: M25.551 Pain in right hip (principal); M25.552 Pain in left hip; R53.1 Weakness
CPT/HCPCS: 97014; 97110; 97140; 97162; 97530; 97750; G0283